=== PATIENT | male | born 1960 | race African-American/Black ===

== ENCOUNTER 2016-09-15 22:54 | Inpatient (IN) | payer MEDICAID ==
[~2016-09-15] VITALS: Ht 185.4 cm; Wt 109.9 kg
[~2016-09-15 22:54] MED LIST: AC325T PO; AMLO5TAB2 PO; Amlodipine Besylate PO; BUSP15TA60 PO; BUSPAR; CELE100C; FURO40TA PO; HYDR25CA5 PO; LASIX; LISINOPRIL; LORA10TA7 PO; LORATADINE; LOSA100T7 PO; LOSA50TA6 PO; METO50TA2 PO; METO50TA7 PO; OMEP40CA36 PO; OMEPRAZOLE; POTA10CA43 PO; POTASSIUM; Propranolol Hcl PO; SILD50TA PO; SULF1TAB35 PO; TMSL.4C PO; VIAGRA
[2016-09-15] MEDS ORDERED: NS IV 1000 ML 1,000 ML IV ONE ×2 (23:13→23:36)
--- NOTE | 2016-09-15 23:13 | ED General ---
General Chief Complaint: General Problems/Pain Stated Complaint: WEAKNESS,CONFUSION Source of Information: Patient Exam Limitations: Other (clinical condition) History of Present Illness Time Seen by Provider: 23:08 Initial Comments Patient presents to ER with a chief complaint of the past 5-7 days progressively worsening weakness tiredness inability to get around his house and a progressive worsening dry cough. He also was noted last few days she's had croupy eye mattering. He is also having progressively worsening low back pain over the last 3-4 days. States he has no rash however he is known to have hepatitis C and drinks at least one to 2 beers a night. He knows he is on thyroid medicines as well as blood pressure medicines but he does not have a list of his meds with him tonight. Allergies and Home Medications Allergies Coded Allergies: No Known Drug Allergies (Unverified , 03/18/13) Home Medications Buspirone Hcl 15 Mg Tablet, 15 MG PO BID, (Reported) Celecoxib 100 Mg Capsule, #30 (Reported) Loratadine 10 Mg Tablet, 10 MG PO DAILY, (Reported) Losartan Potassium 100 Mg Tablet, 100 MG PO DAILY, #30 Ref 1 Prescribed by: ZAHRAA MOYA on 09/17/14 1518 Omeprazole 40 Mg Capsule.dr, 40 MG PO DAILY, (Reported) Sildenafil Citrate 50 Mg Tablet, #10 (Reported) [Amlodipine Besylate] 10 MG TABLET, 10 MG PO DAILY, #30 Ref 1 Prescribed by: ZAHRAA MOYA on 09/17/14 1518 [Propranolol Hcl] 20 MG TABLET, 80 MG PO TID for 30 Days, Ref 1 Prescribed by: ZAHRAA MOYA on 09/17/14 1518 Constitutional: see HPI (a complete and thorough review of systems difficult to obtain secondary to patient being a difficult historian as well as his clinical condition), chills, diaphoresis, dizziness, malaise, weakness EENTM: No ear pain, No epistaxis, No eye pain, No nose congestion, No nose pain Respiratory: cough (dry), No hemoptysis, No phlegm, short of breath, No wheezing Cardiovascular: No chest pain, No edema, No palpitations, No syncope Gastrointestinal: No abdominal pain, No constipation, No diarrhea, No nausea, No vomiting Genitourinary: No discharge, dysuria, No frequency, No hematuria, hesitancy, No incontinence Musculoskeletal: back pain (past week), No joint pain Skin: change in color (yellowing around the eyes last day and a half), No pruritus, No rash Psychiatric/Neurological: Denies Headache, Denies Numbness Past [id number] Hx Patient Social History Alcohol Use: Regular Use Recreational Drug Use: No Smoking Status: Current Everyday Smoker Type Used: Cigarettes Recent Hopitalizations: No Immunizations Up To Date Tetanus Booster (TDap): Unknown PED Vaccines UTD: No Seasonal Allergies Seasonal Allergies: Yes Surgeries HX Surgeries: No Respiratory Hx Respiratory Disorders: No Cardiovascular Hx Cardiac Disorders: No Cardiac Disorders: Chronic Edema/Swelling, Hypertension Neurological Hx Neurological Disorders: No Reproductive System Hx Reproductive Disorders: No Genitourinary Hx Genitourinary Disorders: No Gastrointestinal Hx Gastrointestinal Disorders: Yes (HEPATITIS C--NO TREATMENT) Gastrointestinal Disorders: Gastroesophageal Reflux, Liver Disease/Jaundice, Hepatitis, Cirrhosis, Irritable Bowel Musculoskeletal Hx Musculoskeletal Disorders: No Endocrine Hx Endocrine Disorders: No HEENT HX ENT Disorders: No Cancer Hx Cancer: No Psychosocial Hx Psychiatric Problems: Yes Behavioral Health Disorders: Anxiety, Depression Integumentary HX Skin/Integumentary Disorder: No Blood Transfusions Hx Blood Disorders: Yes (ANEMIA AND THROMBOCYTOPENIA-FELT TO BE RELATED TO ALCOHOL ABUSE) Adverse Reaction to a Blood Tr: No Family Medical History Family Medial History: Family history: Cardiovascular disease 03 FATHER Family history: Hypertension 03 MOTHER Physical Exam-Suspected Sepsis Physical Exam Vital Signs Vital Sign - Last 12Hours 09/15/16 23:08 Temp 97.3 Pulse 62 Resp 16 B/P (MAP) 144/93 Pulse Ox 99 O2 Delivery Room Air Capillary Refill : General Appearance: Chronically ill, Moderate Distress Eyes: Bilateral Eye EOMI, Bilateral Eye Other (mild clear mattering bilateral eyes), Bilateral Eye PERRL, Bilateral Eye Scleral Icterus HEENT: TMs Normal, Pharynx Normal Neck: Normal Inspection, Non Tender, Supple Respiratory: Chest Non Tender, Lungs Clear, Normal Breath Sounds, Other (dry cough) Cardiovascular: Regular Rate, Rhythm, No No Edema, No JVD, Normal Peripheral Pulses Gastrointestinal: Normal Bowel Sounds, Non Tender, Soft Back: Normal Inspection, No CVA Tenderness, No Vertebral Tenderness Extremity: Normal Capillary Refill, Non Tender, No Calf Tenderness Neurologic/Psychiatric: Alert, Oriented x3, No Motor/Sensory Deficits, audit partner II- XII Norm as Tested, Other (flat affect) Skin: jaundice, No rash, No ulcerations Focused Exam Lactic Acid Level Laboratory Tests Test 09/15/16 23:00 09/16/16 00:42 Lactic Acid Level 3.85 MMOL/L (0.50-2.00) *H 3.30 MMOL/L (0.50-2.00) *H Progress/Results/Core Measures Suspected Sepsis SIRS Temperature: Pulse: Respiratory Rate: Laboratory Tests 09/15/16 23:00: White Blood Count 7.9 Blood Pressure / Mean: Laboratory Tests 09/15/16 23:00: Creatinine 0.80, INR Comment 1.8H, Platelet Count 62L, Total Bilirubin 15.2H 09/16/16 00:10: Creatinine 0.81 09/16/16 01:34: Results/Orders Lab Results Laboratory Tests Test 09/15/16 23:00 09/15/16 23:36 09/16/16 00:10 09/16/16 00:42 Range/Units White Blood Count 7.9 4.3-11.0 10^3/uL Red Blood Count 2.91 L 4.35-5.85 10^6/uL Hemoglobin 10.3 L 13.3-17.7 G/DL Hematocrit 27 L 40-54 % Mean Corpuscular Volume 92 80-99 FL Mean Corpuscular Hemoglobin 35 H 25-34 PG Mean Corpuscular Hemoglobin Concent 39 H 32-36 G/DL Red Cell Distribution Width 16.8 H 10.0-14.5 % Platelet Count 62 L 130-400 10^3/uL Mean Platelet Volume 11.5 H 7.4-10.4 FL Neutrophils (%) (Auto) 64 42-75 % Lymphocytes (%) (Auto) 13 12-44 % Monocytes (%) (Auto) 21 H 0-12 % Eosinophils (%) (Auto) 1 0-10 % Basophils (%) (Auto) 1 0-10 % Neutrophils # (Auto) 5.1 1.8-7.8 X 10^3 Lymphocytes # (Auto) 1.0 1.0-4.0 X 10^3 Monocytes # (Auto) 1.6 H 0.0-1.0 X 10^3 Eosinophils # (Auto) 0.1 0.0-0.3 10^3/uL Basophils # (Auto) 0.1 0.0-0.1 10^3/uL Neutrophils % (Manual) 58 % Lymphocytes % (Manual) 16 % Monocytes % (Manual) 19 % Eosinophils % (Manual) 1 % Basophils % (Manual) 1 % Band Neutrophils 5 % Hypochromasia SLIGHT Poikilocytosis SLIGHT Anisocytosis SLIGHT Target Cells MODERATE Prothrombin Time 21.0 H 12.2-14.7 SEC INR Comment 1.8 H 0.8-1.4 Activated Partial Thromboplast Time 44 H 24-35 SEC Urine Color GUDELIA H Urine Clarity CLEAR Urine pH 6.5 5-9 Urine Specific [place] 1.010 L 1.016-1.022 Urine Protein 1+ H NEGATIVE Urine Glucose (UA) NEGATIVE NEGATIVE Urine Ketones 2+ H NEGATIVE Urine Nitrite POSITIVE H NEGATIVE Urine Bilirubin 3+ H NEGATIVE Urine Urobilinogen 12 H NORMAL MG/DL Urine Leukocyte Esterase 2+ H NEGATIVE Urine RBC (Auto) 2+ H NEGATIVE Urine RBC 0-2 /HPF Urine WBC 10-25 H /HPF Urine Squamous Epithelial Cells 2-5 /HPF Urine Crystals NONE /LPF Urine Bacteria TRACE /HPF Urine Casts NONE /LPF Urine Mucus NEGATIVE /LPF Urine Culture Indicated YES Sodium Level 108 *L 110 *L 135-145 MMOL/L Potassium Level 4.8 4.7 3.6-5.0 MMOL/L Chloride Level 81 L 84 L 98-107 MMOL/L Carbon Dioxide Level 14 L 14 L 21-32 MMOL/L Anion Gap 13 12 5-14 MMOL/L Blood Urea Nitrogen 7 7 7-18 MG/DL Creatinine 0.80 0.81 0.60-1.30 MG/DL Estimat Glomerular Filtration Rate > 60 > 60 BUN/Creatinine Ratio 9 9 Glucose Level 95 89 70-105 MG/DL Lactic Acid Level 3.85 *H 3.30 *H 0.50-2.00 MMOL/L Calcium Level 8.1 L 7.7 L 8.5-10.1 MG/DL Phosphorus Level 2.2 L 2.3-4.7 MG/DL Magnesium Level 1.2 L 1.8-2.4 MG/DL Total Bilirubin 15.2 H 0.1-1.0 MG/DL Aspartate Amino Transf (AST/SGOT) 109 H 5-34 U/L Alanine Aminotransferase (ALT/SGPT) 42 0-55 U/L Alkaline Phosphatase 146 H 40-136 U/L Troponin I < 0.30 <0.30 NG/ML C-Reactive Protein High Sensitivity 1.38 H 0.00-0.50 MG/DL Total Protein 7.9 6.4-8.2 GM/DL Albumin 2.4 L 3.2-4.5 GM/DL Urine Opiates Screen POSITIVE H NEGATIVE Urine Oxycodone Screen NEGATIVE NEGATIVE Urine Methadone Screen NEGATIVE NEGATIVE Urine Propoxyphene Screen NEGATIVE NEGATIVE Urine Barbiturates Screen NEGATIVE NEGATIVE Ur Tricyclic Antidepressants Screen NEGATIVE NEGATIVE Urine Phencyclidine Screen NEGATIVE NEGATIVE Urine Amphetamines Screen NEGATIVE NEGATIVE Urine Methamphetamines Screen NEGATIVE NEGATIVE Urine Benzodiazepines Screen NEGATIVE NEGATIVE Urine Cocaine Screen NEGATIVE NEGATIVE Urine Cannabinoids Screen NEGATIVE NEGATIVE Serum Alcohol 114 H <10 MG/DL Ammonia 55 H 11-32 UMOL/L Test 09/16/16 01:34 Range/Units My Orders Orders - TATIANA JACOBSON Alcohol (09/15/16 23:13) Cbc With Automated Diff (09/15/16 23:13) Comprehensive Metabolic Panel (09/15/16 23:13) Hs C Reactive Protein (09/15/16 23:13) Drug Screen Stat (Urine) (09/15/16 23:13) Lactic Acid Analyzer (09/15/16 23:13) Magnesium (09/15/16 23:13) Troponin I (09/15/16 23:13) Ua Culture If Indicated (09/15/16 23:13) Phosphorus (09/15/16 23:13) Chest 1 View, Ap/Pa Only (09/15/16 23:13) Saline Lock/Iv-Start (09/15/16 23:13) Ns Iv 1000 Ml (Sodium Chloride 0.9%) (09/15/16 23:13) Blood Culture (09/15/16 23:13) Sputum Culture (09/15/16 23:13) Protime With Inr (09/15/16 23:13) Partial Thromboplastin Time (09/15/16 23:13) O2 (09/15/16 23:13) Ondansetron Injection (Zofran Injectio (09/15/16 23:15) Saline Lock/Iv-Start (09/15/16 23:13) Vital Signs Adult Sepsis Patie Q1HR (09/15/16 23:13) Remove Rings In Anticipation O (09/15/16 23:13) Ammonia (09/15/16 23:21) Manual Differential (09/15/16 23:00) Urine Culture (09/15/16 23:00) Saline Lock/Iv-Start (09/15/16 23:36) Ns Iv 1000 Ml (Sodium Chloride 0.9%) (09/15/16 23:36) Ns Iv 1000 Ml (Sodium Chloride 0.9%) (09/15/16 23:45) Cefepime Injection (Maxipime Injection) (09/15/16 23:36) Piperacillin Sodium/Tazobactam (Zosyn Vi (09/15/16 23:45) Ns (Ivpb) (Sodium Chloride 0.9% Ivpb Bag (09/15/16 23:37) Magnesium 1 Gm/100 Ml Ivpb (Magnesium Patino (09/16/16 00:00) Potassium Phosphate Inj (Potassium Phosp (09/16/16 00:00) Basic Metabolic Panel (09/16/16 00:04) Hiv 1&2 Antibody (09/16/16 00:04) Hepatitis Panel Acute (09/16/16 00:04) Osmolality Urine (09/16/16 00:07) Medications Given in ED Current Medications Medications Dose Ordered Sig/Otilia Route Start Time Stop Time Status Last Admin Dose Admin Magnesium Sulfate/ Dextrose 100 ml @ 100 mls/hr ONCE ONCE IV 09/16/16 00:00 09/16/16 00:59 DC 09/16/16 00:12 100 MLS/HR Ondansetron HCl 4 mg ONCE PRN IVP 09/15/16 23:15 09/15/16 23:24 DC 09/15/16 23:23 4 MG Piperacillin Sod/ Tazobactam Sod 4.5 gm ONCE ONCE IV 09/15/16 23:45 09/15/16 23:46 DC 09/15/16 23:49 4.5 GM Potassium Phosphate 15 mm/ Sodium Chloride 255 ml @ 102 mls/hr 0000 ONCE IV 09/16/16 00:00 09/16/16 02:29 09/16/16 01:50 102 MLS/HR Sodium Chloride 100 ml @ ud STK-MED ONCE .ROUTE 09/15/16 23:37 09/15/16 23:43 DC 09/15/16 23:49 100 MLS/HR Sodium Chloride 1,000 ml @ 0 mls/hr Q0M ONCE IV 09/15/16 23:13 09/15/16 23:16 DC 09/15/16 23:23 0 MLS/HR Sodium Chloride 1,000 ml @ 0 mls/hr Q0M ONCE IV 09/15/16 23:36 09/15/16 23:40 DC 09/15/16 23:49 0 MLS/HR Vital Signs/I&O Vital Sign - Last 12Hours 09/15/16 09/15/16 09/16/16 09/16/16 23:08 23:18 00:00 01:03 Temp 97.3 97.9 98.0 Pulse 62 63 67 Resp 16 13 15 B/P (MAP) 144/93 112/77 Pulse Ox 99 99 97 98 O2 Delivery Room Air Room Air Room Air Room Air Intake and Output 09/16/16 00:00 Intake Total 1100 ml Balance 1100 ml Capillary Refill : Progress Note #1: Time: 00:03 Progress Note Patient's lactate was noted to be over 3. We initiated massive fluid resuscitation at 30 mils per kilogram. He was then noted that his sodium was 108 on review of his labs and he is very received 1 L normal saline as well as starting on the next 2 L. We'll allow him to go ahead and get his IV antibiotics and replace magnesium and phosphorus but have held the second and third liter of normal saline. We will reobtain a BMP at this time. Patient states he feels a little better now. He has an apparent urinary tract infection as well as a possible opacity in his right lower lobe that could be consistent with a infiltrate. He will need further treatment inpatient in the unit. Progress Note #2: Time: 00:58 Progress Note Patient's repeat sodium came back 110 up from 108. This is acceptable this time. Patient is looking and feeling better he is better able to answer questions. I've discussed the case with him as well as the accepting physician and we're working on moving him to the ICU safely. He still denying nausea or pain. Diagnostic Imaging Diagonstic Imaging: Xray Plain Films/CT/US/NM/MRI: chest Comments Right lower lobe nodular opacity potentially a pneumonia or other focal process. Reviewed: Reviewed by Me Departure Communication Time/Spoke to Admitting Phy: 00:[address] Nam discussed the patient's septic shock with elevated liver enzymes and bilirubin and his synthetic dysfunction as well as his hyponatremia 108 and history of hep C as well as his myriad elect like disorders phosphorus, magnesium, calcium, chloride etc. I have held his saline and she agrees with that she also agrees with getting him to the unit. We're awaiting the BMP. At this time patient's blood pressure is been stable. She asked if his belly was tender or any other focal sources and that is not at this time. We also discussed his overt urinary tract infection on the UA and choice of vancomycin and Zosyn and she agrees with this at this time. Also discussed the round opacity seen on the right lower lobe on the chest x-ray. Impression Impression: Primary Impression: Severe sepsis Additional Impressions: UTI (urinary tract infection) Qualified Codes: N30.01 - Acute cystitis with hematuria Hyperammonemia Hyponatremia Hypomagnesemia Hypophosphatemia Hypocalcemia Cough Weakness Low back pain Qualified Codes: M54.5 - Low back pain Hepatic encephalopathy Disposition: ADMITTED INPATIENT (ICU) Condition: Improved Decision to Admit Reason: Admit from ER (General) Decision to Admit/Date: Sep 16, 2016 Time/Decision to Admit Time: 00:21 Departure-Patient Inst. Referrals: KIT BOSTON (PCP/Family) Primary Care Physician Copy Copies To 1: JUAN DAVID SAMANIEGO TITUS J Sep 15, 2016 23:13
[2016-09-15] MEDS ORDERED: ONDANSETRON 4 MG/2 ML (SDV) Z0FRAN IVP PRN (23:15)
[2016-09-15 23:22] LABS: BASOPHILS # (AUTO) 0.1 10^3/uL (0.0-0.1); BASOPHILS % (AUTO) 1 % (0-10); EOSINOPHILS # (AUTO) 0.1 10^3/uL (0.0-0.3); EOSINOPHILS % (AUTO) 1 % (0-10); LYMPHOCYTES % (AUTO) 13 % (12-44); MEAN CORPUSCULAR HEMOGLOBIN 35 PG (25-34); MEAN CORPUSCULAR HGB CONC 39 G/DL (32-36); MEAN CORPUSCULAR VOLUME 92 FL (80-99); MEAN PLATELET VOLUME 11.5 FL (7.4-10.4); MONOCYTES # (AUTO) 1.6 X 10^3 (0.0-1.0); MONOCYTES % (AUTO) 21 % (0-12); NEUTROPHILS # (AUTO) 5.1 X 10^3 (1.8-7.8); NEUTROPHILS % (AUTO) 64 % (42-75); PLATELET COUNT 62 10^3/uL (130-400); RED BLOOD COUNT 2.91 10^6/uL (4.35-5.85); RED CELL DISTRIBUTION WIDTH 16.8 % (10.0-14.5); WHITE BLOOD COUNT 7.9 10^3/uL (4.3-11.0)
[2016-09-15 23:24] LABS: KETONES,URINE 2+ (NEGATIVE); LEUKOCYTE ESTERASE ,URINE 2+ (NEGATIVE); NITRITE,URINE POSITIVE (NEGATIVE); PH,URINE 6.5 (5-9); PROTEIN,URINE 1+ (NEGATIVE); UROBILINOGEN,URINE 12 MG/DL (NORMAL)
[2016-09-15 23:27] LABS: INR 1.8 (0.8-1.4)
[2016-09-15 23:32] LABS: BILIRUBIN,URINE 3+ (NEGATIVE)
[2016-09-15] MEDS ORDERED: CEFEPIME INJECTION 2,000 MG in NS (IVPB) 50 ML IV STA (23:36)
[2016-09-15] MEDS ORDERED: NS (IVPB) 100 ML ONE (23:37)
[2016-09-15 23:38] LABS: ALANINE AMINOTRANSFERASE 42 U/L (0-55); ALBUMIN 2.4 GM/DL (3.2-4.5); ALCOHOL 114 MG/DL (<10); ANION GAP 13 MMOL/L (5-14); ASPARTATE AMINO TRANSFERASE 109 U/L (5-34); BILIRUBIN,TOTAL 15.2 MG/DL (0.1-1.0); BLOOD UREA NITROGEN 7 MG/DL (7-18); BUN/CREATININE RATIO 9; CALCIUM 8.1 MG/DL (8.5-10.1); CARBON DIOXIDE 14 MMOL/L (21-32); CHLORIDE 81 MMOL/L (98-107); GFR ESTIMATED > 60; GLUCOSE 95 MG/DL (70-105); MAGNESIUM 1.2 MG/DL (1.8-2.4); PHOSPHORUS 2.2 MG/DL (2.3-4.7); POTASSIUM 4.8 MMOL/L (3.6-5.0); TOTAL PROTEIN 7.9 GM/DL (6.4-8.2); hs C REACTIVE PROTEIN 1.38 MG/DL (0.00-0.50)
[2016-09-15 23:42] LABS: SODIUM 108 MMOL/L (135-145)
[2016-09-15 23:45] LABS: TROPONIN I < 0.30 NG/ML (<0.30)
[2016-09-15] MEDS ORDERED: PIPERACILLIN/TAZO 4.5 GM VIAL (ZOSYN) IV ONE (23:45)
[2016-09-15] MEDS ORDERED: NS IV 1000 ML 1,000 ML IV SCH (23:45)
[2016-09-15 23:57] LABS: ANISOCYTOSIS SLIGHT; BAND NEUTROPHILS 5 %; BASOPHILS % (MANUAL) 1 %; EOSINOPHILS % (MANUAL) 1 %; HYPOCHROMASIA SLIGHT; LYMPHOCYTES % (MANUAL) 16 %; NEUTROPHILS % (MANUAL) 58 %; POIKILOCYTOSIS SLIGHT; TARGET CELLS MODERATE
[2016-09-16] VITALS (27 sets, daily range): BP systolic 124–175; BP diastolic 76–101
[2016-09-16] MEDS ORDERED: POTASSIUM PHOSPHATE INJ 15 MM in NS (IVPB) 250 ML IV ONE ×2
[2016-09-16] MEDS ORDERED: MAGNESIUM 1 GM/100 ML IVPB 100 ML IV ONE
[2016-09-16 00:38] LABS: ANION GAP 12 MMOL/L (5-14); BLOOD UREA NITROGEN 7 MG/DL (7-18); BUN/CREATININE RATIO 9; CALCIUM 7.7 MG/DL (8.5-10.1); CARBON DIOXIDE 14 MMOL/L (21-32); CHLORIDE 84 MMOL/L (98-107); CREATININE SERUM 0.81 MG/DL (0.60-1.30); GFR ESTIMATED > 60; GLUCOSE 89 MG/DL (70-105); POTASSIUM 4.7 MMOL/L (3.6-5.0)
[2016-09-16 00:50] LABS: SODIUM 110 MMOL/L (135-145)
[2016-09-16] MEDS ORDERED: LIDOCAINE UROJET 2% GEL 10 ML PKG ONE (01:16)
[2016-09-16 01:59] LABS: ANION GAP 12 MMOL/L (5-14); BLOOD UREA NITROGEN 7 MG/DL (7-18); BUN/CREATININE RATIO 9; CALCIUM 7.6 MG/DL (8.5-10.1); CARBON DIOXIDE 14 MMOL/L (21-32); CHLORIDE 81 MMOL/L (98-107); CREATININE SERUM 0.76 MG/DL (0.60-1.30); GFR ESTIMATED > 60; GLUCOSE 201 MG/DL (70-105); POTASSIUM 4.7 MMOL/L (3.6-5.0)
[2016-09-16 02:02] LABS: SODIUM 107 MMOL/L (135-145)
[2016-09-16] MEDS ORDERED: VANCOMYCIN 1500 MG/NS 500 ML IVPB IV ONE ×2 (02:15)
[2016-09-16] MEDS ORDERED: NS IV 500 ML 500 ML ONE (02:47)
[2016-09-16] MEDS ORDERED: VANCOMYCIN 750 MG/VIAL IV ONE (02:47)
[2016-09-16 03:13] LABS: BASOPHILS # (AUTO) 0.1 10^3/uL (0.0-0.1); BASOPHILS % (AUTO) 1 % (0-10); EOSINOPHILS # (AUTO) 0.1 10^3/uL (0.0-0.3); EOSINOPHILS % (AUTO) 1 % (0-10); LYMPHOCYTES % (AUTO) 13 % (12-44); MEAN CORPUSCULAR HEMOGLOBIN 35 PG (25-34); MEAN CORPUSCULAR HGB CONC 39 G/DL (32-36); MEAN CORPUSCULAR VOLUME 91 FL (80-99); MONOCYTES # (AUTO) 1.4 X 10^3 (0.0-1.0); MONOCYTES % (AUTO) 19 % (0-12); NEUTROPHILS % (AUTO) 67 % (42-75); PLATELET COUNT 176 10^3/uL (130-400); RED BLOOD COUNT 2.66 10^6/uL (4.35-5.85); RED CELL DISTRIBUTION WIDTH 17.2 % (10.0-14.5); WHITE BLOOD COUNT 7.5 10^3/uL (4.3-11.0)
[2016-09-16] MEDS ORDERED: PANTOPRAZOLE 40 MG/10 ML (PROTONIX) VIAL ONE (03:36)
[2016-09-16] MEDS: PANTOPRAZOLE 40 MG/10 ML (PROTONIX) VIAL IV SCH ×3 (03:56→21:55)
[2016-09-16] MEDS: NS IV 1000 ML 1,000 ML IV SCH (03:58)
[2016-09-16 04:39] LABS: ALANINE AMINOTRANSFERASE 38 U/L (0-55); ALBUMIN 2.2 GM/DL (3.2-4.5); ANION GAP 11 MMOL/L (5-14); ASPARTATE AMINO TRANSFERASE 98 U/L (5-34); BILIRUBIN,TOTAL 13.1 MG/DL (0.1-1.0); BLOOD UREA NITROGEN 7 MG/DL (7-18); BUN/CREATININE RATIO 9; CALCIUM 7.5 MG/DL (8.5-10.1); CARBON DIOXIDE 13 MMOL/L (21-32); CHLORIDE 85 MMOL/L (98-107); CREATININE SERUM 0.75 MG/DL (0.60-1.30); GFR ESTIMATED > 60; GLUCOSE 92 MG/DL (70-105); MAGNESIUM 1.2 MG/DL (1.8-2.4); PHOSPHORUS 2.7 MG/DL (2.3-4.7); POTASSIUM 4.7 MMOL/L (3.6-5.0); TOTAL PROTEIN 6.9 GM/DL (6.4-8.2)
[2016-09-16 04:44] LABS: SODIUM 109 MMOL/L (135-145)
[2016-09-16] MEDS: POTASSIUM CL 10MEQ/50ML IVPB 50 ML IV SCH (04:46)
[2016-09-16] MEDS: KCL 20 MEQ TAB (K-DUR) PO SCH (04:46)
[2016-09-16] MEDS: MAGNESIUM 1 GM/100 ML IVPB 100 ML IV SCH ×5 (04:48→08:27)
[2016-09-16] MEDS: PIPERACILLIN/TAZOBACTAM 4.5 GM/NS100 ML IVPB IV SCH ×6 (05:51→21:56)
--- NOTE | 2016-09-16 07:13 | Diagnostic Imaging Report ---
INDICATION: Weakness, slow speech. Study compared 10/29/2014. FINDINGS: The heart size upper limits but no gross overdistention of the vascularity. A dense nodularity projects over the right chest inferolaterally believed to be callus from a right rib deformity. No acute infiltrate. No failure, effusion or pneumothorax. IMPRESSION: No acute appearing abnormality Dictated by: Dictated on workstation # [id number]
[2016-09-16 09:41] LABS: ANION GAP 8 MMOL/L (5-14); BLOOD UREA NITROGEN 7 MG/DL (7-18); BUN/CREATININE RATIO 9; CALCIUM 7.4 MG/DL (8.5-10.1); CARBON DIOXIDE 16 MMOL/L (21-32); CHLORIDE 87 MMOL/L (98-107); GFR ESTIMATED > 60; GLUCOSE 100 MG/DL (70-105); POTASSIUM 4.3 MMOL/L (3.6-5.0)
[2016-09-16 09:45] LABS: SODIUM 111 MMOL/L (135-145)
[2016-09-16] MEDS ORDERED: LEVO25TA5 PO (09:50)
[2016-09-16] MEDS ORDERED: TORS10TA5 PO (09:50)
[2016-09-16] MEDS ORDERED: LOSA100T28 PO (09:50)
[2016-09-16] MEDS ORDERED: MELO7.5T46 PO (09:50)
[2016-09-16] MEDS ORDERED: POTA10TA10 PO (09:50)
[2016-09-16] MEDS ORDERED: PROP120C3 PO (09:50)
[2016-09-16] MEDS: VANCOMYCIN 1,750 MG/NS 500 ML IVPB IV SCH ×4 (09:58→21:55)
[2016-09-16] MEDS: LORazepam INJ 2 MG/ML (ATIVAN) VIAL IVP PRN ×2 (10:46→22:30)
--- NOTE | 2016-09-16 11:48 | Diagnostic Imaging Report ---
EXAMINATION: Ultrasound of the liver. INDICATION: Cirrhosis. FINDINGS: The pancreas is obscured by bowel gas. The liver has coarse echotexture and is hyperechoic and attenuates the ultrasound beam. This may relate to fatty infiltration, hepatitis or cirrhosis. Nonspecific mild lobulations are seen in the liver contour. No focal mass. The portal vein demonstrate hepatofugal flow compatible with portal hypertension. The gallbladder demonstrate sludge and mild wall thickening with no definite stone. Sonographic Felix sign is reportedly negative. The CBD is obscured. No significant ascites is seen. Very minimal amount of free fluid in subhepatic location is seen. The right kidney is 10.8 CM in length with no hydronephrosis or focal lesion. IMPRESSION: Coarse liver echotexture with no focal mass is seen likely related to chronic hepatitis or cirrhosis. There is reversal of the normal flow in the portal vein compatible with portal hypertension. Dictated by: Dictated on workstation # [id number]
--- NOTE | 2016-09-16 18:31 | History & Physicial ([facility]) ---
HPI History of Present Illness: 56 yo M with known end stage liver disease that presented to ER with increasing confusion and weakness that had been progressing for the last 2 weeks. Patient has known chronic hep C and states that he drinks 3 beers per day. Denies any EtOH withdraw seizures or DTs in the past. Denies any pain at this time. States that he has had decreased appetite the last few weeks. States that he can in because he felt so weak that he might fall down and was concerned that he had a suffered a stroke. Denies weakness that is worse on one side or the other. No troubles swallowing. Source: patient, RN/MD, old records Exam Limitations: no limitations Date seen by provider: Sep 16, 2016 Time Seen by Provider: 09:15 Attending Physician Beatriz Nam MD [place] [facility] [place] Consult Date of Admission Sep 16, 2016 at 00:25 Home Medications Home Medications Reviewed patient Home Medication Reconciliation Form Allergies Coded Allergies: No Known Drug Allergies (Unverified , 03/18/13) [id number] Hx Patient Social History Alcohol Use: Regular Use Recreational Drug Use: No Smoking Status: Current Everyday Smoker Type Used: Cigarettes (1/2 ppd) Recent Foreign Travel: No Contact w/other who traveled: No Recent Hopitalizations: No Recent Infectious Disease Expo: No Physical Abuse Screen: No Sexual Abuse: No Immunizations Up To Date Tetanus Booster (TDap): Unknown Past Medical History Past medical history 1. Hypertension 2. Alcoholism 3. Chronic hepatitis C: Untreated 4. Illicit drug use 5. Cirrhois with portal HTN Denied any past surgical history Family Medical History Family History: Family history: Cardiovascular disease 03 FATHER Family history: Hypertension 03 MOTHER Review of Systems ([facility]C) Constitutional: No chills, No fever, malaise, weakness EENTM: no symptoms reported, No blurred vision, No hoarseness, No throat pain Respiratory: no symptoms reported, No cough, No dyspnea on exertion, No hemoptysis, No orthopnea, No short of breath Cardiovascular: no symptoms reported, No chest pain, No edema, No palpitations Gastrointestinal: No abdominal pain, No constipation, No diarrhea, No hematemesis, jaundice (worsening), loss of appetite, No melena, No nausea, No vomiting Genitourinary: no symptoms reported, No dysuria, No frequency, No hematuria Musculoskeletal: no symptoms reported, No back pain, No joint pain, No muscle pain Skin: change in color, No pruritus, No rash Psychiatric/Neurological: Anxiety, Other (States that he has alot of stress at home and that is one major reason he drinks) Reviewed Test Results Reviewed Test Results Lab Laboratory Tests Test 09/15/16 23:00 09/15/16 23:36 09/16/16 00:10 09/16/16 00:42 Range/Units White Blood Count 7.9 4.3-11.0 10^3/uL Red Blood Count 2.91 L 4.35-5.85 10^6/uL Hemoglobin 10.3 L 13.3-17.7 G/DL Hematocrit 27 L 40-54 % Mean Corpuscular Volume 92 80-99 FL Mean Corpuscular Hemoglobin 35 H 25-34 PG Mean Corpuscular Hemoglobin Concent 39 H 32-36 G/DL Red Cell Distribution Width 16.8 H 10.0-14.5 % Platelet Count 62 L 130-400 10^3/uL Mean Platelet Volume 11.5 H 7.4-10.4 FL Neutrophils (%) (Auto) 64 42-75 % Lymphocytes (%) (Auto) 13 12-44 % Monocytes (%) (Auto) 21 H 0-12 % Eosinophils (%) (Auto) 1 0-10 % Basophils (%) (Auto) 1 0-10 % Neutrophils # (Auto) 5.1 1.8-7.8 X 10^3 Lymphocytes # (Auto) 1.0 1.0-4.0 X 10^3 Monocytes # (Auto) 1.6 H 0.0-1.0 X 10^3 Eosinophils # (Auto) 0.1 0.0-0.3 10^3/uL Basophils # (Auto) 0.1 0.0-0.1 10^3/uL Neutrophils % (Manual) 58 % Lymphocytes % (Manual) 16 % Monocytes % (Manual) 19 % Eosinophils % (Manual) 1 % Basophils % (Manual) 1 % Band Neutrophils 5 % Hypochromasia SLIGHT Poikilocytosis SLIGHT Anisocytosis SLIGHT Target Cells MODERATE Prothrombin Time 21.0 H 12.2-14.7 SEC INR Comment 1.8 H 0.8-1.4 Activated Partial Thromboplast Time 44 H 24-35 SEC Urine Color GUDELIA H Urine Clarity CLEAR Urine pH 6.5 5-9 Urine Specific Donalds 1.010 L 1.016-1.022 Urine Protein 1+ H NEGATIVE Urine Glucose (UA) NEGATIVE NEGATIVE Urine Ketones 2+ H NEGATIVE Urine Nitrite POSITIVE H NEGATIVE Urine Bilirubin 3+ H NEGATIVE Urine Urobilinogen 12 H NORMAL MG/DL Urine Leukocyte Esterase 2+ H NEGATIVE Urine RBC (Auto) 2+ H NEGATIVE Urine RBC 0-2 /HPF Urine WBC 10-25 H /HPF Urine Squamous Epithelial Cells 2-5 /HPF Urine Crystals NONE /LPF Urine Bacteria TRACE /HPF Urine Casts NONE /LPF Urine Mucus NEGATIVE /LPF Urine Culture Indicated YES Sodium Level 108 *L 110 *L 135-145 MMOL/L Potassium Level 4.8 4.7 3.6-5.0 MMOL/L Chloride Level 81 L 84 L 98-107 MMOL/L Carbon Dioxide Level 14 L 14 L 21-32 MMOL/L Anion Gap 13 12 5-14 MMOL/L Blood Urea Nitrogen 7 7 7-18 MG/DL Creatinine 0.80 0.81 0.60-1.30 MG/DL Estimat Glomerular Filtration Rate > 60 > 60 BUN/Creatinine Ratio 9 9 Glucose Level 95 89 70-105 MG/DL Lactic Acid Level 3.85 *H 3.30 *H 0.50-2.00 MMOL/L Calcium Level 8.1 L 7.7 L 8.5-10.1 MG/DL Phosphorus Level 2.2 L 2.3-4.7 MG/DL Magnesium Level 1.2 L 1.8-2.4 MG/DL Total Bilirubin 15.2 H 0.1-1.0 MG/DL Aspartate Amino Transf (AST/SGOT) 109 H 5-34 U/L Alanine Aminotransferase (ALT/SGPT) 42 0-55 U/L Alkaline Phosphatase 146 H 40-136 U/L Troponin I < 0.30 <0.30 NG/ML C-Reactive Protein High Sensitivity 1.38 H 0.00-0.50 MG/DL Total Protein 7.9 6.4-8.2 GM/DL Albumin 2.4 L 3.2-4.5 GM/DL Urine Opiates Screen POSITIVE H NEGATIVE Urine Oxycodone Screen NEGATIVE NEGATIVE Urine Methadone Screen NEGATIVE NEGATIVE Urine Propoxyphene Screen NEGATIVE NEGATIVE Urine Barbiturates Screen NEGATIVE NEGATIVE Ur Tricyclic Antidepressants Screen NEGATIVE NEGATIVE Urine Phencyclidine Screen NEGATIVE NEGATIVE Urine Amphetamines Screen NEGATIVE NEGATIVE Urine Methamphetamines Screen NEGATIVE NEGATIVE Urine Benzodiazepines Screen NEGATIVE NEGATIVE Urine Cocaine Screen NEGATIVE NEGATIVE Urine Cannabinoids Screen NEGATIVE NEGATIVE Serum Alcohol 114 H <10 MG/DL Ammonia 55 H 11-32 UMOL/L Test 09/16/16 01:34 09/16/16 03:00 09/16/16 04:00 09/16/16 09:15 Range/Units Sodium Level 107 *L 109 *L 111 *L 135-145 MMOL/L Potassium Level 4.7 4.7 4.3 3.6-5.0 MMOL/L Chloride Level 81 L 85 L 87 L 98-107 MMOL/L Carbon Dioxide Level 14 L 13 L 16 L 21-32 MMOL/L Anion Gap 12 11 8 5-14 MMOL/L Blood Urea Nitrogen 7 7 7 7-18 MG/DL Creatinine 0.76 0.75 0.80 0.60-1.30 MG/DL Estimat Glomerular Filtration Rate > 60 > 60 > 60 BUN/Creatinine Ratio 9 9 9 Glucose Level 201 H 92 100 70-105 MG/DL Calcium Level 7.6 L 7.5 L 7.4 L 8.5-10.1 MG/DL White Blood Count 7.5 4.3-11.0 10^3/uL Red Blood Count 2.66 L 4.35-5.85 10^6/uL Hemoglobin 9.4 L 13.3-17.7 G/DL Hematocrit 24 L 40-54 % Mean Corpuscular Volume 91 80-99 FL Mean Corpuscular Hemoglobin 35 H 25-34 PG Mean Corpuscular Hemoglobin Concent 39 H 32-36 G/DL Red Cell Distribution Width 17.2 H 10.0-14.5 % Platelet Count 176 130-400 10^3/uL Mean Platelet Volume 7.4-10.4 FL Neutrophils (%) (Auto) 67 42-75 % Lymphocytes (%) (Auto) 13 12-44 % Monocytes (%) (Auto) 19 H 0-12 % Eosinophils (%) (Auto) 1 0-10 % Basophils (%) (Auto) 1 0-10 % Neutrophils # (Auto) 5.0 1.8-7.8 X 10^3 Lymphocytes # (Auto) 1.0 1.0-4.0 X 10^3 Monocytes # (Auto) 1.4 H 0.0-1.0 X 10^3 Eosinophils # (Auto) 0.1 0.0-0.3 10^3/uL Basophils # (Auto) 0.1 0.0-0.1 10^3/uL Lactic Acid Level 2.61 *H 0.50-2.00 MMOL/L Phosphorus Level 2.7 2.3-4.7 MG/DL Magnesium Level 1.2 L 1.8-2.4 MG/DL Total Bilirubin 13.1 #H 0.1-1.0 MG/DL Aspartate Amino Transf (AST/SGOT) 98 H 5-34 U/L Alanine Aminotransferase (ALT/SGPT) 38 0-55 U/L Alkaline Phosphatase 130 40-136 U/L Total Protein 6.9 6.4-8.2 GM/DL Albumin 2.2 L 3.2-4.5 GM/DL Radiology Date of Exam: 09/15/16 CHEST 1 VIEW, AP/PA ONLY INDICATION: Weakness, slow speech. Study compared 10/29/2014. FINDINGS: The heart size upper limits but no gross overdistention of the vascularity. A dense nodularity projects over the right chest inferolaterally believed to be callus from a right rib deformity. No acute infiltrate. No failure, effusion or pneumothorax. IMPRESSION: No acute appearing abnormality Date of Exam:09/16/16 US HEPATIC (LIVER)[id number] EXAMINATION: Ultrasound of the liver. INDICATION: Cirrhosis. FINDINGS: The pancreas is obscured by bowel gas. The liver has coarse echotexture and is hyperechoic and attenuates the ultrasound beam. This may relate to fatty infiltration, hepatitis or cirrhosis. Nonspecific mild lobulations are seen in the liver contour. No focal mass. The portal vein demonstrate hepatofugal flow compatible with portal hypertension. The gallbladder demonstrate sludge and mild wall thickening with no definite stone. Sonographic Felix sign is reportedly negative. The CBD is obscured. No significant ascites is seen. Very minimal amount of free fluid in subhepatic location is seen. The right kidney is 10.8 CM in length with no hydronephrosis or focal lesion. IMPRESSION: Coarse liver echotexture with no focal mass is seen likely related to chronic hepatitis or cirrhosis. There is reversal of the normal flow in the portal vein compatible with portal hypertension. Physical Exam-([facility]) Physical Exam Vital Signs VS - Last 72 Hours, by Label 09/15/16 09/15/16 09/16/16 09/16/16 23:08 23:18 00:00 01:03 Temp 97.3 97.9 98.0 Pulse 62 63 67 Resp 16 13 15 B/P (MAP) 144/93 112/77 Pulse Ox 99 99 97 98 O2 Delivery Room Air Room Air Room Air Room Air 09/16/16 09/16/16 09/16/16 09/16/16 01:15 01:15 01:19 01:30 Temp 97.5 Pulse 72 70 Resp 19 B/P (MAP) 150/85 Pulse Ox 97 97 O2 Delivery Room Air Room Air Room Air 09/16/16 09/16/16 09/16/16 09/16/16 01:45 02:00 02:15 02:30 Pulse 68 65 61 62 Resp 14 16 13 10 B/P (MAP) 138/83 143/90 132/76 131/85 Pulse Ox 97 98 98 99 O2 Delivery Room Air Room Air Room Air Room Air 09/16/16 09/16/16 09/16/16 09/16/16 02:45 03:00 03:30 04:00 Pulse 65 65 65 Resp 10 16 11 B/P (MAP) 124/82 128/77 128/79 Pulse Ox 99 98 96 O2 Delivery Room Air Room Air Room Air Room Air 09/16/16 09/16/16 09/16/16 09/16/16 04:00 05:00 06:00 07:00 Pulse 60 61 64 67 Resp 11 10 10 B/P (MAP) 136/86 136/82 129/82 Pulse Ox 89 97 98 O2 Delivery Room Air Room Air Room Air 09/16/16 09/16/16 09/16/16 09/16/16 08:45 09:55 12:15 12:45 Temp 98.2 99.2 O2 Delivery Room Air Room Air 09/16/16 09/16/16 09/16/16 13:00 16:09 16:09 Temp 98.6 Pulse 72 O2 Delivery Room Air Capillary Refill : Less Than 3 Seconds General Appearance: WD/WN, no apparent distress HEENT: PERRL/EOMI, scleral icterus (R), scleral icterus (L) Neck: non-tender, full range of motion, supple, normal inspection Respiratory: chest non-tender, lungs clear, normal breath sounds, no respiratory distress, no accessory muscle use, No respiratory distress, No accessory muscle use, No crackles, No wheezing Cardiovascular: normal peripheral pulses, regular rate, rhythm, no gallop, no JVD, no murmur Gastrointestinal: normal bowel sounds, non tender, soft, no pulsatile mass, distended, No guarding, No rebound, No tenderness, spleenomegaly, other (No ascites or fluid shift present) Back: normal inspection, no CVA tenderness, no vertebral tenderness Extremities: normal range of motion, non-tender, normal inspection, no calf tenderness, normal capillary refill, pedal edema (1+ bilaterally) Neurologic/Psychiatric: digital community manager II-XII nml as tested, no motor/sensory deficits, alert, normal mood/affect, oriented x 3 Skin: warm/dry, jaundice Lymphatic: no adenopathy Assessment/Plan Assessment/Plan Plan 56 yo M with end stage liver disease that presented with diffuse weakness Plan End Stage liver disease with portal HTN secondary to chronic Hep C and Alcoholism - Meld Score of 23 on admission - Confusion on admission could be due to HypoNa or hepatic encephalopathy, will hold off on lactulose at this time until Na improves, patient seems to be at baseline this AM - Liver US with signs of cirrhosis - INR 1.8: No signs of bleeding, will get daily INR Severe Hyponatremia - 1 month ago in clinic normal sodium - Will replace slowly with q4hr BMPs, NS @ 50 cc/hr Diffuse Weakness - Likely 2/2 to electrolyte abnormalities - Will consult PT to work with patient - No signs of focal injury Alcoholism - Will monitor for withdraw symptoms, Ativan PRN - Thiamine and Folate daily x 5 days Chronic Hep C: Untreated due to alcohol use - Serology pending Severe Thrombocytopenia - Hematology consulted in ER, due to liver disease Normocytic Anemia likely of chronic dz - Will continue to monitor - No signs of bleeding at this time Urinary Tract Infection - culture pending HTN: currently normotensive - will continue to monitor - hold home blood pressure medications at this time for concerns of sepsis Hypothyroidism - Will get TSH/T4 in AM - continue home dose today FEN: Reg diet DVT PPX: SCDs, lovenox contraindicated due to INR Dispo: Admit to ICU care for severe hypoNa Diagnosis/Problems: Clinical Quality Measures DVT/VTE Risk/Contraindication: Risk Factor Score Per Nursin RFS Level Per Nursing on Admit: 2=Moderate Copy Copies To 1: Blair PEPPER HOLLY R MD Sep 16, 2016 18:31
[2016-09-16] MEDS: THIAMINE 100 MG (VITAMIN B-1) TAB PO SCH (18:58)
[2016-09-16] MEDS: FOLIC ACID 1 MG TAB PO SCH (18:58)
[2016-09-16 21:37] LABS: BLOOD UREA NITROGEN 7 MG/DL (7-18); BUN/CREATININE RATIO 8; CALCIUM 7.4 MG/DL (8.5-10.1); CARBON DIOXIDE 17 MMOL/L (21-32); CREATININE SERUM 0.88 MG/DL (0.60-1.30); GFR ESTIMATED > 60; GLUCOSE 112 MG/DL (70-105)
[2016-09-16 22:09] LABS: ANION GAP 8 MMOL/L (5-14); CHLORIDE 88 MMOL/L (98-107); POTASSIUM 5.1 MMOL/L (3.6-5.0)
[2016-09-16 22:16] LABS: SODIUM 113 MMOL/L (135-145)
[2016-09-17] VITALS (24 sets, daily range): BP systolic 101–165; BP diastolic 72–124
[2016-09-17] MEDS: NS IV 1000 ML 1,000 ML IV SCH ×2 (04:17→22:40)
[2016-09-17 04:42] LABS: BASOPHILS # (AUTO) 0.1 10^3/uL (0.0-0.1); BASOPHILS % (AUTO) 1 % (0-10); EOSINOPHILS # (AUTO) 0.1 10^3/uL (0.0-0.3); EOSINOPHILS % (AUTO) 1 % (0-10); LYMPHOCYTES # (AUTO) 0.8 X 10^3 (1.0-4.0); LYMPHOCYTES % (AUTO) 11 % (12-44); MEAN CORPUSCULAR HEMOGLOBIN 36 PG (25-34); MEAN CORPUSCULAR HGB CONC 38 G/DL (32-36); MEAN CORPUSCULAR VOLUME 94 FL (80-99); MEAN PLATELET VOLUME 11.4 FL (7.4-10.4); MONOCYTES # (AUTO) 1.7 X 10^3 (0.0-1.0); MONOCYTES % (AUTO) 24 % (0-12); NEUTROPHILS # (AUTO) 4.5 X 10^3 (1.8-7.8); NEUTROPHILS % (AUTO) 63 % (42-75); PLATELET COUNT 60 10^3/uL (130-400); RED BLOOD COUNT 2.59 10^6/uL (4.35-5.85); WHITE BLOOD COUNT 7.1 10^3/uL (4.3-11.0)
[2016-09-17 04:46] LABS: INR 1.7 (0.8-1.4)
[2016-09-17 04:54] LABS: ANION GAP 7 MMOL/L (5-14); BLOOD UREA NITROGEN 7 MG/DL (7-18); BUN/CREATININE RATIO 7; CALCIUM 7.5 MG/DL (8.5-10.1); CARBON DIOXIDE 18 MMOL/L (21-32); CHLORIDE 91 MMOL/L (98-107); CREATININE SERUM 0.98 MG/DL (0.60-1.30); GFR ESTIMATED > 60; GLUCOSE 100 MG/DL (70-105); MAGNESIUM 1.6 MG/DL (1.8-2.4); PHOSPHORUS 2.4 MG/DL (2.3-4.7); POTASSIUM 4.1 MMOL/L (3.6-5.0)
[2016-09-17 04:58] LABS: SODIUM 116 MMOL/L (135-145)
[2016-09-17] MEDS: POTASSIUM CL 10MEQ/50ML IVPB 50 ML IV SCH (05:23)
[2016-09-17] MEDS: MAGNESIUM 1 GM/100 ML IVPB 100 ML IV SCH ×3 (05:23→07:06)
[2016-09-17 05:24] LABS: THYROID STIMULATING HORMONE 2.86 UIU/ML (0.35-4.94)
[2016-09-17] MEDS: KCL 20 MEQ TAB (K-DUR) PO SCH (05:24)
[2016-09-17] MEDS: PIPERACILLIN/TAZOBACTAM 4.5 GM/NS100 ML IVPB IV SCH ×6 (05:53→22:20)
[2016-09-17] MEDS: THIAMINE 100 MG (VITAMIN B-1) TAB PO SCH (05:53)
[2016-09-17 07:08] LABS: OSMOLALITY URINE PT 474 mOsm/kg (250-1200)
[2016-09-17 07:11] LABS: HCV INDEX >11.00 Index (0.00-0.79); HIV AG AB SCREEN Non-Reactive (Non-Reactive)
[2016-09-17] MEDS ORDERED: TROUGH ORDER-PHARMACY XX NR (08:00)
--- NOTE | 2016-09-17 08:20 | Pulmonary Consultation ---
History of Present Illness History of Present Illness Date of Consultation 09/17/16 08:15 Time Seen by Provider: 08:15 Date of Admission History of Present Illness 56yo with hx of end stage liver disease, hepatitis C, and continues to drink 3 beers per day. presented to ED 09/15 secondary to increasing confusion and progressive weakness. He was found to have severe hyponatremia. Allergies and Home Medications Allergies Coded Allergies: No Known Drug Allergies (Unverified , 03/18/13) Home Medications Levothyroxine Sodium 25 Mcg Tablet, 25 MCG PO DAILY, (Reported) Losartan Potassium 100 Mg Tablet, 100 MG PO DAILY, (Reported) Meloxicam 7.5 Mg Tablet, 7.5 MG PO DAILY, (Reported) Omeprazole 40 Mg Capsule.dr, 40 MG PO DAILY, (Reported) Potassium Chloride 10 Meq Tablet.er, 10 MEQ PO BID, (Reported) Propranolol HCl 120 Mg Cap.sa.24h, 120 MG PO BID, (Reported) Sildenafil Citrate 50 Mg Tablet, 50 MG PO DAILY PRN for ERECTILE DYSFUNCTION, ( Reported) Torsemide 10 Mg Tablet, 10 MG PO DAILY, (Reported) Past Bieuldp-Tyrymb-Alwlrs Hx Patient Social History Alcohol Use: Regular Use Recreational Drug Use: No Smoking Status: Current Everyday Smoker Type Used: Cigarettes (1/2 ppd) Recent Foreign Travel: No Contact w/Someone Who Travel: No Recent Infectious Disease Expo: No Recent Hopitalizations: No Physical Abuse Screen: No Sexual Abuse: No Immunizations Up To Date Tetanus Booster (TDap): Unknown PED Vaccines UTD: No Seasonal Allergies Seasonal Allergies: Yes Surgeries HX Surgeries: No Respiratory Hx Respiratory Disorders: No Cardiovascular Hx Cardiac Disorders: No Cardiac Disorders: Chronic Edema/Swelling, Hypertension Neurological Hx Neurological Disorders: No Reproductive System Hx Reproductive Disorders: No Sexually Transmitted Disease: No Genitourinary Hx Genitourinary Disorders: No Genitourinary Disorders: Prostate Problems Gastrointestinal Hx Gastrointestinal Disorders: Yes (HEPATITIS C--NO TREATMENT) Gastrointestinal Disorders: Gastroesophageal Reflux, Liver Disease/Jaundice, Hepatitis, Cirrhosis, Irritable Bowel Musculoskeletal Hx Musculoskeletal Disorders: No Endocrine Hx Endocrine Disorders: No HEENT HX ENT Disorders: No Cancer Hx Cancer: No Psychosocial Hx Psychiatric Problems: Yes Behavioral Health Disorders: Anxiety, Depression Integumentary HX Skin/Integumentary Disorder: No Blood Transfusions Hx Blood Disorders: Yes (ANEMIA AND THROMBOCYTOPENIA-FELT TO BE RELATED TO ALCOHOL ABUSE) Adverse Reaction to a Blood Tr: No Family Medical History Family Medial History: Family history: Cardiovascular disease 03 FATHER Family history: Hypertension 03 MOTHER Review of Systems Time Seen by Provider: 09:04 Constitutional: Malaise, Sweats, Weakness, No: Chills, Fever, Other Respiratory: Cough, Dry, SOB with excertion, Shortness of breath Cardiovascular: No: Chest Pain, Edema, Lt Headedness, Orthopnea, Other, Palpitations, Paroxysmal Noc. Dyspnea Gastrointestinal: Abdominal Pain, Constipation Neurological: Confusion, Incoordination, Weakness Exam Exam Vital Signs Date Time Temp Pulse Resp B/P (MAP) Pulse Ox O2 Delivery O2 Flow Rate FiO2 09/17/16 05:00 64 13 151/94 Room Air 09/17/16 04:05 Room Air 09/17/16 04:00 73 9 165/93 Room Air 09/17/16 03:00 63 13 156/95 Room Air 09/17/16 02:00 65 11 139/89 Room Air 09/17/16 01:00 66 09/17/16 01:00 65 11 150/94 Room Air 09/17/16 00:05 96 Room Air 09/17/16 00:00 66 16 150/94 Room Air 09/16/16 23:00 65 13 133/84 Room Air 09/16/16 22:00 71 17 147/85 Room Air 09/16/16 21:00 61 10 175/101 Room Air 09/16/16 20:15 96 Room Air 09/16/16 20:00 69 15 150/94 Room Air 09/16/16 19:00 68 11 149/84 Room Air 09/16/16 19:00 67 09/16/16 18:00 69 16 142/89 Room Air 09/16/16 17:00 68 11 127/85 Room Air 09/16/16 16:09 Room Air 09/16/16 16:09 98.6 09/16/16 16:00 72 17 137/79 Room Air 09/16/16 15:00 72 15 141/90 Room Air 09/16/16 14:00 71 13 125/77 Room Air 09/16/16 13:00 72 09/16/16 13:00 70 16 165/89 Room Air 09/16/16 12:45 99.2 09/16/16 12:15 Room Air 09/16/16 11:00 78 15 135/80 Room Air 09/16/16 10:00 66 20 136/78 Room Air 09/16/16 09:55 98.2 09/16/16 09:00 66 10 149/86 97 Room Air 09/16/16 08:45 Room Air I & O 09/17/16 07:00 Intake Total 3084.5 ml Output Total 3225 ml Balance -140.5 ml General Appearance: Chronically ill, Mild Distress HEENT: TMs Normal, Pharynx Normal Neck: Normal Inspection, Non Tender, Supple Respiratory: Chest Non Tender, Lungs Clear, Normal Breath Sounds, Other (dry cough) Cardiovascular: Regular Rate, Rhythm, No No Edema, No JVD, Normal Peripheral Pulses Capillary Refill: Less Than 3 Seconds Gastrointestinal: normal bowel sounds, non tender, soft, no pulsatile mass, distended, No guarding, No rebound, No tenderness, spleenomegaly, other (No ascites or fluid shift present) Extremity: Normal Capillary Refill, Non Tender, No Calf Tenderness Neurologic/Psychiatric: Alert, Oriented x3, No Motor/Sensory Deficits, frozen food department manager II- XII Norm as Tested, Other (flat affect) Results Lab Laboratory Tests 09/15/16 23:00 09/16/16 00:10 09/16/16 01:34 09/16/16 03:00 09/16/16 04:00 09/16/16 09:15 09/16/16 21:10 09/17/16 03:56 Assessment/Plan Assessment/Plan Endstage liver disease with portal HTN secondary to chronic hep C and alcoholism -Start 100mg of spironolactone daily and 40mg of lasix daily Severe hyponatremia -improving Continue NS at 50 cc/hr Metabolic lactic acidosis -monitor Severe thrombocytopenia -hematology following Anemia -monitor UTI -cultures pending -Continue zosyn Progressive weakness probably secondary to hyponatremia and underlying disease -PT/OT 255 Clinical Quality Measures DVT/VTE Risk/Contraindication: Risk Factor Score Per Nursin RFS Level Per Nursing on Admit: 2=Moderate YUMIKO HDEZ DO Sep 17, 2016 8:20 am
--- NOTE | 2016-09-17 08:22 | Diagnostic Imaging Report ---
Portable upright radiograph of the chest. INDICATION: Dyspnea. FINDINGS: The heart is moderately enlarged. There is a mild pulmonary vascular congestion. No significant effusion or pneumothorax. Mediastinum and freddy appear unremarkable. IMPRESSION: Cardiomegaly with minimal vascular congestion. Dictated by: Dictated on workstation # [id number]
--- NOTE | 2016-09-17 08:48 | Physical Therapy Evaluation ---
PT Evaluation-General Medical Diagnosis Admission Date Sep 16, 2016 at 00:25 Medical Diagnosis: weakness Onset Date: Sep 16, 2016 Therapy Diagnosis Therapy Diagnosis: impaired mobility, strength, balance Height/Weight Height (Feet): 6 Height (Inches): 1.00 Weight (Pounds): 277 Weight (Ounces): 0.0 Precautions Precautions/Isolations: Fall Prevention, Standard Precautions Referral Physician: Beatriz Nam MD Reason for Referral: Evaluation/Treatment Medical History Pertinent Medical History: HTN, Smoking Additional Medical History end stage liver disease, hep C, alcoholism, illicit drug use, cirrhosis Current History went to ER with confusion and weakness Reviewed History: Yes Social History Home: Single Level Patient is a poor historian, he has a SO and states he has a few steps to enter his home. Prior/Core FIM Prior Level of Function Functional Landing Measure 0=Not Assessed/NA 4=Minimal Assistance 1=Total Assistance 5=Supervision or Setup 2=Maximal Assistance 6=Modified Landing 3=Moderate Assistance 7=Complete Landing Bed Mobility: 7 Transfers (B,C,W/C) (FIM): 6 Gait: 6 Patient states he sometimes uses a single point cane. PT Evaluation-Current Subjective Patient in bed pre tx, agrees to PT, seems confused, lethargic, very slow to follow commands. No complaints of pain. Patient has had a bowel movement in the bed and needs to be cleaned. Pt/Family Goals "I want you to get me better" Objective Patient Orientation: Person Attachments: Mckenzie Catheter, IV ROM/Strength ROM Lower Extremities WNL Strenght Lower Extremities 4-/5 gross bilateral lower extremities Integumentary/Posture Bowel Incontinence: Yes Bladder Incontinence: Mckenzie Cath Neuromuscular (Tone, Coordination, Reflexes) Decreased coordination on the right side very observable during ambulation. Sensory Vision: Functional Hearing: Functional Sensation Right Lower Extremit: Intact Sensation Left Lower Extremity: Intact Sensation Lower Extremities Patient has intact light touch sensation but states that he does have some numbness in his right leg. Transfers Functional Landing Measure 0=Not Assessed/NA 4=Minimal Assistance 1=Total Assistance 5=Supervision or Setup 2=Maximal Assistance 6=Modified Landing 3=Moderate Assistance 7=Complete Landing Transfers (B, C, W/C) (FIM): 3 Scootin Rollin Supine to/from Sit: 3 Sit to/from Stand: 4 leans to the right a little, cues for safety and hand placement Gait Mode of Locomotion: Walk Anticipated Mode of Locomotion: Walk Gait (FIM): 1 Distance: 20' Gait Level of Assist: 4 Gait Persons Needed: 1 Gait Assistive Device: FWW Comments/Gait Description Very slow, leans to the right, needs assist with balance and guiding his walker. Balance Sitting Static: Fair Sitting Dynamic: Fair Standing Static: Poor Standing Dynamic: Poor Treatment Patient sat in a recliner post tx with nurse call, phone, tray, legs elevated. Assessment/Needs Patient has impaired mobility, strength, endurance, is a fall risk. Rehab Potential: Fair PT Intermediate Goals Intermediate Goals PT Game Breeding Farm Manager Goals Time Frame: Sep 24, 2016 Transfers (B,C,W/C) (FIM): 4 Gait (FIM): 4 Distance: 150' Gait Level of Assist: 4 Gait Assistive Device: FWW PT Plan Problem List Problem List: Activity Tolerance, Functional Strength, Safety, Balance, Gait, Transfer, Bed Mobility Treatment/Plan Treatment Plan: Continue Plan of Care Treatment Plan: Bed Mobility, Education, Functional Activity Karen, Functional Strength, Gait, Safety, Therapeutic Exercise, Transfers Treatment Duration: Sep 24, 2016 Frequency: 6 times per week Estimated Hrs Per Day: .25 hour per day (15-30 min a day) Patient and/or Family Agrees t: Yes Safety Risks/Education Patient Education: Gait Training, Transfer Techniques, Correct Positioning, Safety Issues Teaching Recipient: Patient Teaching Methods: Demonstration, Discussion Response to Teaching: Reinforcement Needed Discharge Recommendations Plan Patient will perform bed mobility and transfer training, balance and endurance training, functional strengthening, stair training, gait training, and education , to improve functional mobility and independence at home. Therapy D/C Recommendations: Home w/ Family Support Time/GCodes Time In: 815 Time Out: 845 Total Billed Treatment Time: 30 Total Billed Treatment 1 visit TEOFILO 15' GT 15' JOHN MACKEY PT Sep 17, 2016 08:48
[2016-09-17] MEDS: PANTOPRAZOLE 40 MG/10 ML (PROTONIX) VIAL IV SCH ×2 (10:00→21:28)
[2016-09-17] MEDS: FUROSEMIDE 40 MG/4 ML INJ (LASIX) IV SCH (10:00)
[2016-09-17] MEDS: FOLIC ACID 1 MG TAB PO SCH (10:00)
[2016-09-17] MEDS: SPIRONOLACTONE 100 MG (ALDACTONE) TABLET PO SCH (10:03)
[2016-09-17] MEDS: VANCOMYCIN INJECTION 1,500 MG in NS IV 500 ML 500 ML IV SCH ×2 (10:03→21:28)
[2016-09-17] MEDS: LORazepam INJ 2 MG/ML (ATIVAN) VIAL IVP PRN (10:19)
[2016-09-17] MEDS: PROPRANOLOL LA 120 MG (INDERAL LA) CAP NON-FORMULARY PO SCH ×2 (15:02→21:28)
--- NOTE | 2016-09-17 19:11 | Progress Note (SOAP) ---
Subjective Subjective/Events-last exam Patient states that he is feeling better but is still weak. Has not really got out of bed much since arriving here. Sitting in chair this AM. Tolerating PO diet. Denies pain Review of Systems Date Seen by Provider: Sep 17, 2016 Time Seen by Provider: 09:50 General: No Chills, Fatigue, Malaise Pulmonary: No Dyspnea, No Cough Cardiovascular: No: Chest Pain, Palpitations Gastrointestinal: No: Abdominal Pain, Nausea, Vomiting Genitourinary: Frequency Neurological: Incoordination, Weakness Objective Exam Last Set of Vital Signs Vital Signs Date Time Temp Pulse Resp B/P (MAP) Pulse Ox O2 Delivery O2 Flow Rate FiO2 09/17/16 18:00 65 12 123/72 100 Room Air 09/17/16 16:00 97.7 Capillary Refill : Less Than 3 Seconds I&O Bad tableGeneral: Alert, Oriented X3, Cooperative, No Acute Distress HEENT: Other (Scleral icterus bilaterally) Lungs: Clear to Auscultation, Normal Air Movement Heart: Regular Rate, No Murmurs Abdomen: Normal Bowel Sounds, Soft, No Tenderness, Other (+ splenomegaly, no ascites) Extremities: No Edema, No Tenderness/Swelling Neuro: Normal Speech Psych/Mental Status: Mental Status NL, Mood NL Results/Procedures Lab Laboratory Tests 09/16/16 21:10: Sodium Level 113*L, Potassium Level 5.1H, Chloride Level 88L, Carbon Dioxide Level 17L, Anion Gap 8, Blood Urea Nitrogen 7, Creatinine 0.88, Estimat Glomerular Filtration Rate > 60, BUN/Creatinine Ratio 8, Glucose Level 112H, Calcium Level 7.4L 09/17/16 03:56: Sodium Level 116*L, Potassium Level 4.1, Chloride Level 91L, Carbon Dioxide Level 18L, Anion Gap 7, Blood Urea Nitrogen 7, Creatinine 0.98, Estimat Glomerular Filtration Rate > 60, BUN/Creatinine Ratio 7, Glucose Level 100, Calcium Level 7.5L, White Blood Count 7.1, Red Blood Count 2.59L, Hemoglobin 9.2L, Hematocrit 24L, Mean Corpuscular Volume 94, Mean Corpuscular Hemoglobin 36H, Mean Corpuscular Hemoglobin Concent 38H, Red Cell Distribution Width 17.0H , Platelet Count 60L, Mean Platelet Volume 11.4H, Neutrophils (%) (Auto) 63, Lymphocytes (%) (Auto) 11L, Monocytes (%) (Auto) 24H, Eosinophils (%) (Auto) 1, Basophils (%) (Auto) 1, Neutrophils # (Auto) 4.5, Lymphocytes # (Auto) 0.8L, Monocytes # (Auto) 1.7H, Eosinophils # (Auto) 0.1, Basophils # (Auto) 0.1, Prothrombin Time 20.0H, INR Comment 1.7H, Phosphorus Level 2.4, Magnesium Level 1.6L, Thyroid Stimulating Hormone (TSH) 2.86, Free Thyroxine 0.90 09/17/16 08:50: Vancomycin Level Trough 19.9 Microbiology 09/15/16 Blood Culture - Preliminary, Resulted No growth 09/15/16 Urine Culture - Preliminary, Resulted Radiology Date of Exam: 09/15/16 CHEST 1 VIEW, AP/PA ONLY INDICATION: Weakness, slow speech. Study compared 10/29/2014. FINDINGS: The heart size upper limits but no gross overdistention of the vascularity. A dense nodularity projects over the right chest inferolaterally believed to be callus from a right rib deformity. No acute infiltrate. No failure, effusion or pneumothorax. IMPRESSION: No acute appearing abnormality Date of Exam:09/16/16 US HEPATIC (LIVER)[id number] EXAMINATION: Ultrasound of the liver. INDICATION: Cirrhosis. FINDINGS: The pancreas is obscured by bowel gas. The liver has coarse echotexture and is hyperechoic and attenuates the ultrasound beam. This may relate to fatty infiltration, hepatitis or cirrhosis. Nonspecific mild lobulations are seen in the liver contour. No focal mass. The portal vein demonstrate hepatofugal flow compatible with portal hypertension. The gallbladder demonstrate sludge and mild wall thickening with no definite stone. Sonographic Felix sign is reportedly negative. The CBD is obscured. No significant ascites is seen. Very minimal amount of free fluid in subhepatic location is seen. The right kidney is 10.8 CM in length with no hydronephrosis or focal lesion. IMPRESSION: Coarse liver echotexture with no focal mass is seen likely related to chronic hepatitis or cirrhosis. There is reversal of the normal flow in the portal vein compatible with portal hypertension. Assessment/Plan Assessment/Plan Plan 56 yo M with end stage liver disease that presented with diffuse weakness Plan End Stage liver disease with portal HTN secondary to chronic Hep C and Alcoholism - Meld Score of 23 on admission - Confusion on admission could be due to HypoNa or hepatic encephalopathy, will hold off on lactulose at this time until Na improves, patient seems to be at baseline this AM - Liver US with signs of cirrhosis - INR 1.8: No signs of bleeding, will get daily INR - Spironolactone and Lasix added today by Dr Flood Severe Hyponatremia: improving - 1 month ago in clinic normal sodium - Will replace slowly with q4hr BMPs, NS @ 50 cc/hr Diffuse Weakness - Likely 2/2 to electrolyte abnormalities - Will consult PT to work with patient - No signs of focal injury Alcoholism - Will monitor for withdraw symptoms, Ativan PRN - Thiamine and Folate daily x 5 days - Discussed with patient the importance of alcohol cessation given severity of liver disease Chronic Hep C: Untreated due to alcohol use - Serology pending Severe Thrombocytopenia - Hematology consulted in ER, due to liver disease Normocytic Anemia likely of chronic dz - Will continue to monitor - No signs of bleeding at this time Urinary Tract Infection - NGTD, Will d/c antibiotics tomorrow if cultures remain neg HTN: currently normotensive - will continue to monitor - hold home blood pressure medications at this time for concerns of sepsis Hypothyroidism - Will get TSH/T4 in AM - continue home dose today FEN: Reg diet DVT PPX: SCDs, lovenox contraindicated due to INR Dispo: continue admission to ICU care for severe hypoNa Diagnosis/Problems: Clinical Quality Measures DVT/VTE Risk/Contraindication: Risk Factor Score Per Nursin RFS Level Per Nursing on Admit: 2=Moderate JOHN LAMAS MD Sep 17, 2016 19:11
[2016-09-18] VITALS (16 sets, daily range): BP systolic 108–170; BP diastolic 69–119
[2016-09-18] MEDS: LORazepam INJ 2 MG/ML (ATIVAN) VIAL IVP PRN ×2 (00:28→21:42)
[2016-09-18 04:26] LABS: BASOPHILS # (AUTO) 0.1 10^3/uL (0.0-0.1); BASOPHILS % (AUTO) 2 % (0-10); EOSINOPHILS # (AUTO) 0.2 10^3/uL (0.0-0.3); EOSINOPHILS % (AUTO) 2 % (0-10); LYMPHOCYTES % (AUTO) 14 % (12-44); MEAN CORPUSCULAR HEMOGLOBIN 36 PG (25-34); MEAN CORPUSCULAR HGB CONC 38 G/DL (32-36); MEAN CORPUSCULAR VOLUME 95 FL (80-99); MEAN PLATELET VOLUME 11.8 FL (7.4-10.4); MONOCYTES # (AUTO) 1.8 X 10^3 (0.0-1.0); MONOCYTES % (AUTO) 24 % (0-12); NEUTROPHILS # (AUTO) 4.3 X 10^3 (1.8-7.8); NEUTROPHILS % (AUTO) 58 % (42-75); PLATELET COUNT 68 10^3/uL (130-400); RED BLOOD COUNT 2.67 10^6/uL (4.35-5.85); RED CELL DISTRIBUTION WIDTH 17.6 % (10.0-14.5); WHITE BLOOD COUNT 7.4 10^3/uL (4.3-11.0)
[2016-09-18 04:36] LABS: INR 1.8 (0.8-1.4); PROTHROMBIN TIME PATIENT 20.7 SEC (12.2-14.7)
[2016-09-18 05:14] LABS: ANION GAP 11 MMOL/L (5-14); BLOOD UREA NITROGEN 9 MG/DL (7-18); BUN/CREATININE RATIO 9; CALCIUM 7.3 MG/DL (8.5-10.1); CARBON DIOXIDE 16 MMOL/L (21-32); CHLORIDE 94 MMOL/L (98-107); CREATININE SERUM 0.96 MG/DL (0.60-1.30); GFR ESTIMATED > 60; GLUCOSE 91 MG/DL (70-105); MAGNESIUM 1.5 MG/DL (1.8-2.4); PHOSPHORUS 3.1 MG/DL (2.3-4.7); POTASSIUM 4.1 MMOL/L (3.6-5.0)
[2016-09-18 05:22] LABS: SODIUM 121 MMOL/L (135-145)
[2016-09-18] MEDS: KCL 20 MEQ TAB (K-DUR) PO SCH (05:43)
[2016-09-18] MEDS: POTASSIUM CL 10MEQ/50ML IVPB 50 ML IV SCH (05:43)
[2016-09-18] MEDS: MAGNESIUM 1 GM/100 ML IVPB 100 ML IV SCH ×3 (05:43→07:23)
[2016-09-18] MEDS: NS IV 1000 ML 1,000 ML IV SCH (06:15)
[2016-09-18] MEDS: PIPERACILLIN/TAZOBACTAM 4.5 GM/NS100 ML IVPB IV SCH ×6 (06:19→21:42)
[2016-09-18] MEDS: FUROSEMIDE 40 MG/4 ML INJ (LASIX) IV SCH (06:19)
--- NOTE | 2016-09-18 07:54 | Diagnostic Imaging Report ---
INDICATION: Hyponatremia. COMPARISON: 09/17/2016 FINDINGS: Single frontal radiographic view of the chest was obtained and demonstrates stable cardiac silhouette and mild pulmonary vascular congestion. Aeration of the lungs is stable. There is no new focal alveolar consolidation, large effusion, nor pneumothorax. Bony structures show no gross acute abnormalities. IMPRESSION: 1. Stable exam of the chest showing cardiomegaly and mild pulmonary vascular congestion. Dictated by: Dictated on workstation # [id number]
[2016-09-18] MEDS ORDERED: TROUGH ORDER-PHARMACY XX NR (08:00)
--- NOTE | 2016-09-18 08:23 | Pulmonary Progress Note ---
Subjective Time Seen by Provider: 08:19 Subjective/Events-last exam Pt appears to be doing better. No complications noted. Exam Exam Vital Signs Date Time Temp Pulse Resp B/P (MAP) Pulse Ox O2 Delivery O2 Flow Rate FiO2 09/18/16 06:00 70 14 146/89 100 Room Air 09/18/16 05:00 68 12 108/69 100 Room Air 09/18/16 04:00 98.0 09/18/16 04:00 96 Room Air 09/18/16 04:00 65 10 136/95 100 Room Air 09/18/16 03:00 74 13 162/89 100 Room Air 09/18/16 02:00 73 23 147/119 100 Room Air 09/18/16 01:00 72 09/18/16 01:00 73 13 144/96 100 Room Air 09/18/16 00:00 96 Room Air 09/18/16 00:00 98.3 09/18/16 00:00 74 30 126/88 100 Room Air 09/17/16 23:00 72 16 132/104 100 Room Air 09/17/16 22:00 71 17 139/79 100 Room Air 09/17/16 21:00 70 16 101/80 100 Room Air 09/17/16 20:00 64 13 139/86 100 Room Air 09/17/16 20:00 98.2 09/17/16 20:00 96 Room Air 09/17/16 19:00 70 09/17/16 19:00 64 12 135/80 100 Room Air 09/17/16 18:00 65 12 123/72 100 Room Air 09/17/16 17:00 66 14 133/85 90 Room Air 09/17/16 16:00 97.7 09/17/16 16:00 65 13 155/102 Room Air 09/17/16 16:00 Room Air 09/17/16 15:00 61 9 144/92 93 Room Air 09/17/16 14:00 61 9 131/94 Room Air 09/17/16 13:00 62 10 143/92 Room Air 09/17/16 13:00 62 09/17/16 12:00 Room Air 09/17/16 12:00 97.4 09/17/16 12:00 65 12 164/124 Room Air 09/17/16 11:00 63 18 156/114 100 Room Air 09/17/16 10:00 63 14 142/106 93 Room Air 09/17/16 09:00 66 20 140/108 100 Room Air I & O 09/18/16 07:00 Intake Total 2590 ml Output Total 3350 ml Balance -760 ml General Appearance: Chronically ill, Mild Distress HEENT: TMs Normal, Pharynx Normal Neck: Normal Inspection, Non Tender, Supple Respiratory: Chest Non Tender, Lungs Clear, Normal Breath Sounds, Other (dry cough) Cardiovascular: Regular Rate, Rhythm, No No Edema, No JVD, Normal Peripheral Pulses Capillary Refill: Less Than 3 Seconds Gastrointestinal: normal bowel sounds, non tender, soft, no pulsatile mass, distended, No guarding, No rebound, No tenderness, spleenomegaly, other (No ascites or fluid shift present) Extremity: Normal Capillary Refill, Non Tender, No Calf Tenderness Neurologic/Psychiatric: Alert, Oriented x3, No Motor/Sensory Deficits, vegetable specker II- XII Norm as Tested, Other (flat affect) Results Lab Laboratory Tests 09/16/16 09:15 09/16/16 21:10 09/17/16 03:56 09/18/16 03:32 Assessment/Plan Assessment/Plan Endstage liver disease with portal HTN secondary to chronic hep C and alcoholism -Start 100mg of spironolactone daily and 40mg of lasix daily Severe hyponatremia -improving Continue NS at 50 cc/hr Metabolic lactic acidosis -monitor Severe thrombocytopenia -hematology following Anemia -monitor UTI -cultures pending -Continue zosyn Progressive weakness probably secondary to hyponatremia and underlying disease -PT/OT 233 Clinical Quality Measures DVT/VTE Risk/Contraindication: Risk Factor Score Per Nursin RFS Level Per Nursing on Admit: 2=Moderate YUMIKO HDEZ DO Sep 18, 2016 08:23
[2016-09-18] MEDS ORDERED: SODIUM BICARB 8.4% 50 MEQ/50 ML (ABBOTT) SYR IV NR (08:30)
[2016-09-18] MEDS: PROPRANOLOL LA 120 MG (INDERAL LA) CAP NON-FORMULARY PO SCH ×2 (09:46→20:05)
[2016-09-18] MEDS: THIAMINE 100 MG (VITAMIN B-1) TAB PO SCH (09:46)
[2016-09-18] MEDS: FOLIC ACID 1 MG TAB PO SCH (09:46)
[2016-09-18] MEDS: SPIRONOLACTONE 100 MG (ALDACTONE) TABLET PO SCH (09:46)
--- NOTE | 2016-09-18 10:33 | Physical Therapy Daily Note ---
PT Daily Note-Current Subjective Pt. somewhat confused. States he can do anything. Pain Numeric Pain Scale: 0-No Pain Mental Status Patient Orientation: Person Attachments: IV Transfers Functional [place] Measure 0=Not Assessed/NA 4=Minimal Assistance 1=Total Assistance 5=Supervision or Setup 2=Maximal Assistance 6=Modified [place] 3=Moderate Assistance 7=Complete IndependenceIRFPAI Quality Coding Scale 6 Independent with activity with or without an assistive device 5 Patient requires set up or clean up by helper. Patient completes activity by themselves 4 Supervision or touching assist (CGA). [place] provide cues , steadying assist 3 The helper provides less than half the effort to complete the activity 2 The helper provides more than half the effort to complete the activity 1 Dependent. The helper does all the effort to complete an activity 7 Patient refused to complete or attempt activity 9 The patient did not perform the activity before the current illness or injury 88 Not attempted due to Medical conditions or safety concerns Transfers (B, C, W/C) (FIM): 4 sit to stand ans sup to sit all min to CGA. sometimes sloppy, poor control Gait Training Gait (FIM): 1 Distance (FIM): 1=up to 49 ft Gait Assistive Device: FWW 15ft, 7ft, needs min to mod assist, poor awareness and control; Exercises Supine Ex: Bridging, Ankle pumps, Rolling, Heel Slides, Scooting, Straight leg raise, Hip abd/add Supine Reps: 12 Assessment Current Status: Good Progress PT Surveillance Officer Goals Surveillance Officer Goals PT Surveillance Officer Goals Time Frame: Sep 24, 2016 Transfers (B,C,W/C) (FIM): 4 Gait (FIM): 4 Distance: 150' Gait Level of Assist: 4 Gait Assistive Device: FWW PT Plan Treatment/Plan Treatment Plan: Continue Plan of Care Treatment Plan: Bed Mobility, Education, Functional Activity Karen, Functional Strength, Gait, Safety, Therapeutic Exercise, Transfers Treatment Duration: Sep 24, 2016 Frequency: 6 times per week Estimated Hrs Per Day: .25 hour per day (15-30 min a day) Patient and/or Family Agrees t: Yes Safety Risks/Education Patient Education: Gait Training, Transfer Techniques Teaching Recipient: Patient Teaching Methods: Demonstration, Discussion Response to Teaching: Verbalize Understanding, Return Demonstration, Reinforcement Needed needs instruction and education for all funct Time/GCodes Time In: 1005 Time Out: 1030 Total Billed Treatment Time: 25 Total Billed Treatment 1,EX10,FA15 G Codes Necessary: BK Niño FINISH CARPENTER Sep 18, 2016 10:33
--- NOTE | 2016-09-18 11:59 | Progress Note (SOAP) ---
Subjective Subjective/Events-last exam Patient states that he feels better this AM. Seems to be more confused this AM though. Lab improving. Denies any pain. Up to the side of the bed yesterday with PT. Tolerating PO diet Review of Systems Date Seen by Provider: Sep 18, 2016 Time Seen by Provider: 09:35 General: No Chills, Fatigue Pulmonary: No Dyspnea, No Cough Cardiovascular: No: Chest Pain, Palpitations Gastrointestinal: No: Abdominal Pain, Constipation, Diarrhea, Nausea, Vomiting Genitourinary: Frequency Musculoskeletal: leg pain Neurological: Weakness Objective Exam Last Set of Vital Signs Vital Signs Date Time Temp Pulse Resp B/P (MAP) Pulse Ox O2 Delivery O2 Flow Rate FiO2 09/18/16 10:51 98.6 73 20 142/93 100 Room Air Capillary Refill : Less Than 3 Seconds I&O Intake and Output 09/18/16 00:00 Intake Total 2490 ml Output Total 4000 ml Balance -1510 ml Intake Oral 1190 ml IV Total 1300 ml Output Urine Total 4000 ml # Bowel Movements 1 General: Alert, Cooperative, No Acute Distress, Other (Oriented to person and place, not time) HEENT: PERRLA Lungs: Clear to Auscultation, Normal Air Movement Heart: Regular Rate, No Murmurs Abdomen: Normal Bowel Sounds, Soft, No Tenderness, Other (+ Splenomeagly) Extremities: No Edema, No Tenderness/Swelling Skin: No Rashes, No Breakdown Neuro: Normal Speech, Strength at 5/5 X4 Ext, Cranial Nerves 3-12 NL Results/Procedures Lab Laboratory Tests 09/18/16 03:32: White Blood Count 7.4, Red Blood Count 2.67L, Hemoglobin 9.5L, Hematocrit 25L, Mean Corpuscular Volume 95, Mean Corpuscular Hemoglobin 36H, Mean Corpuscular Hemoglobin Concent 38H, Red Cell Distribution Width 17.6H, Platelet Count 68L, Mean Platelet Volume 11.8H, Neutrophils (%) (Auto) 58, Lymphocytes (%) (Auto) 14 , Monocytes (%) (Auto) 24H, Eosinophils (%) (Auto) 2, Basophils (%) (Auto) 2, Neutrophils # (Auto) 4.3, Lymphocytes # (Auto) 1.0, Monocytes # (Auto) 1.8H, Eosinophils # (Auto) 0.2, Basophils # (Auto) 0.1, Prothrombin Time 20.7H, INR Comment 1.8H, Sodium Level 121*L, Potassium Level 4.1, Chloride Level 94L, Carbon Dioxide Level 16L, Anion Gap 11, Blood Urea Nitrogen 9, Creatinine 0.96, Estimat Glomerular Filtration Rate > 60, BUN/Creatinine Ratio 9, Glucose Level 91, Calcium Level 7.3L, Phosphorus Level 3.1, Magnesium Level 1.5L Microbiology 09/15/16 Blood Culture - Preliminary, Resulted No growth 09/15/16 Urine Culture - Preliminary, Resulted Radiology Date of Exam: 09/15/16 CHEST 1 VIEW, AP/PA ONLY INDICATION: Weakness, slow speech. Study compared 10/29/2014. FINDINGS: The heart size upper limits but no gross overdistention of the vascularity. A dense nodularity projects over the right chest inferolaterally believed to be callus from a right rib deformity. No acute infiltrate. No failure, effusion or pneumothorax. IMPRESSION: No acute appearing abnormality Date of Exam:09/16/16 US HEPATIC (LIVER)[id number] EXAMINATION: Ultrasound of the liver. INDICATION: Cirrhosis. FINDINGS: The pancreas is obscured by bowel gas. The liver has coarse echotexture and is hyperechoic and attenuates the ultrasound beam. This may relate to fatty infiltration, hepatitis or cirrhosis. Nonspecific mild lobulations are seen in the liver contour. No focal mass. The portal vein demonstrate hepatofugal flow compatible with portal hypertension. The gallbladder demonstrate sludge and mild wall thickening with no definite stone. Sonographic Felix sign is reportedly negative. The CBD is obscured. No significant ascites is seen. Very minimal amount of free fluid in subhepatic location is seen. The right kidney is 10.8 CM in length with no hydronephrosis or focal lesion. IMPRESSION: Coarse liver echotexture with no focal mass is seen likely related to chronic hepatitis or cirrhosis. There is reversal of the normal flow in the portal vein compatible with portal hypertension. Assessment/Plan Assessment/Plan Plan 56 yo M with end stage liver disease that presented with diffuse weakness Plan End Stage liver disease with portal HTN secondary to chronic Hep C and Alcoholism - Meld Score of 23 on admission - Confusion on admission could be due to HypoNa or hepatic encephalopathy, will hold off on lactulose at this time until Na improves, patient seems to be at baseline this AM - Liver US with signs of cirrhosis - INR 1.8: No signs of bleeding, will get daily INR - Spironolactone and Lasix added by Dr Flood Severe Hyponatremia: improving - 1 month ago in clinic normal sodium - Will replace slowly with daily BMPs, NS @ 50 cc/hr - D/c downs Diffuse Weakness - Likely 2/2 to electrolyte abnormalities - Will consult PT to work with patient - No signs of focal injury Alcoholism - Will monitor for withdraw symptoms, Ativan PRN - Thiamine and Folate daily x 5 days - Discussed with patient the importance of alcohol cessation given severity of liver disease Chronic Hep C: Untreated due to alcohol use - Serology pending Severe Thrombocytopenia - Hematology consulted in ER, due to liver disease Normocytic Anemia likely of chronic dz - Will continue to monitor - No signs of bleeding at this time Urinary Tract Infection - NGTD, Will d/c antibiotics tomorrow if cultures remain neg HTN: currently normotensive - will continue to monitor - hold home blood pressure medications at this time for concerns of sepsis Hypothyroidism: normal TSH/T4 - continue home dose today FEN: Reg diet DVT PPX: SCDs, lovenox contraindicated due to INR Dispo: Ok to transfer down to floor today Diagnosis/Problems: Clinical Quality Measures DVT/VTE Risk/Contraindication: Risk Factor Score Per Nursin RFS Level Per Nursing on Admit: 2=Moderate JOHN LAMAS MD Sep 18, 2016 11:59
[2016-09-18 17:07] LABS: MEAN PLATELET VOLUME 11.6 FL (7.4-10.4); RED BLOOD COUNT 2.69 10^6/uL (4.35-5.85); WHITE BLOOD COUNT 6.9 10^3/uL (4.3-11.0)
[2016-09-18 17:16] LABS: INR 1.7 (0.8-1.4); PROTHROMBIN TIME PATIENT 20.1 SEC (12.2-14.7)
[2016-09-18] MEDS: ALFUZOSIN HCL 10 MG TAB (UROXATRAL) PO SCH (19:33)
[2016-09-19] VITALS (7 sets, daily range): BP systolic 122–156; BP diastolic 69–89
[2016-09-19 06:20] LABS: BASOPHILS # (AUTO) 0.2 10^3/uL (0.0-0.1); BASOPHILS % (AUTO) 3 % (0-10); EOSINOPHILS # (AUTO) 0.2 10^3/uL (0.0-0.3); EOSINOPHILS % (AUTO) 4 % (0-10); LYMPHOCYTES # (AUTO) 1.4 X 10^3 (1.0-4.0); LYMPHOCYTES % (AUTO) 25 % (12-44); MEAN CORPUSCULAR HEMOGLOBIN 36 PG (25-34); MEAN CORPUSCULAR HGB CONC 37 G/DL (32-36); MEAN CORPUSCULAR VOLUME 95 FL (80-99); MEAN PLATELET VOLUME 10.7 FL (7.4-10.4); MONOCYTES # (AUTO) 1.3 X 10^3 (0.0-1.0); MONOCYTES % (AUTO) 23 % (0-12); NEUTROPHILS # (AUTO) 2.6 X 10^3 (1.8-7.8); NEUTROPHILS % (AUTO) 46 % (42-75); PLATELET COUNT 73 10^3/uL (130-400); RED BLOOD COUNT 2.67 10^6/uL (4.35-5.85); WHITE BLOOD COUNT 5.7 10^3/uL (4.3-11.0)
[2016-09-19 06:29] LABS: INR 1.9 (0.8-1.4); PROTHROMBIN TIME PATIENT 21.8 SEC (12.2-14.7)
[2016-09-19] MEDS: THIAMINE 100 MG (VITAMIN B-1) TAB PO SCH (06:29)
[2016-09-19] MEDS: PANTOPRAZOLE 40 MG (PROTONIX) TAB PO SCH (06:29)
[2016-09-19] MEDS: PIPERACILLIN/TAZOBACTAM 4.5 GM/NS100 ML IVPB IV SCH ×6 (06:29→21:49)
[2016-09-19] MEDS: FUROSEMIDE 40 MG/4 ML INJ (LASIX) IV SCH (06:29)
[2016-09-19 06:41] LABS: ALANINE AMINOTRANSFERASE 37 U/L (0-55); ALBUMIN 1.9 GM/DL (3.2-4.5); ANION GAP 7 MMOL/L (5-14); ASPARTATE AMINO TRANSFERASE 104 U/L (5-34); BLOOD UREA NITROGEN 10 MG/DL (7-18); BUN/CREATININE RATIO 11; CALCIUM 7.8 MG/DL (8.5-10.1); CARBON DIOXIDE 24 MMOL/L (21-32); CHLORIDE 94 MMOL/L (98-107); CREATININE SERUM 0.92 MG/DL (0.60-1.30); GFR ESTIMATED > 60; GLUCOSE 89 MG/DL (70-105); MAGNESIUM 1.2 MG/DL (1.8-2.4); PHOSPHORUS 3.7 MG/DL (2.3-4.7); POTASSIUM 3.8 MMOL/L (3.6-5.0); TOTAL PROTEIN 6.4 GM/DL (6.4-8.2)
[2016-09-19 06:43] LABS: SODIUM 125 MMOL/L (135-145)
--- NOTE | 2016-09-19 09:13 | Physical Therapy Daily Note ---
PT Daily Note-Current Subjective Pt. and GF present. Pt in bed. Resistant to getting up but does with encouragement. As soon as he is in chair he states he wants back in bed. Pts. GF states he has been incont of b&b Pain Numeric Pain Scale: 5-Moderate Pain Location: Medial Location Body Site: Head Pain Description: Ache Mental Status Patient Orientation: Confused Attachments: IV Transfers Functional [place] Measure 0=Not Assessed/NA 4=Minimal Assistance 1=Total Assistance 5=Supervision or Setup 2=Maximal Assistance 6=Modified [place] 3=Moderate Assistance 7=Complete IndependenceIRFPAI Quality Coding Scale 6 Independent with activity with or without an assistive device 5 Patient requires set up or clean up by helper. Patient completes activity by themselves 4 Supervision or touching assist (CGA). [place] provide cues , steadying assist 3 The helper provides less than half the effort to complete the activity 2 The helper provides more than half the effort to complete the activity 1 Dependent. The helper does all the effort to complete an activity 7 Patient refused to complete or attempt activity 9 The patient did not perform the activity before the current illness or injury 88 Not attempted due to Medical conditions or safety concerns Transfers (B, C, W/C) (FIM): 4 in out bed with min assist . pt. incont urine , this OUTSOLE ROUNDER applied brief Gait Training Gait (FIM): 2 Gait Assistive Device: FWW gait 50 ft x1 min assist and instruction re: use of FWW every step Exercises Supine Ex: Bridging, Ankle pumps, Rolling, Heel Slides, Straight leg raise, Hip abd/add Supine Reps: 12 Seated Therapy Exercises: Long arc quads Seated Reps: 12 Treatments alarm applied to chair, pt. in chair with alarm insitu Assessment Current Status: Good Progress PT Longterm Goals Capacitor Pack Press Operator Goals PT Longterm Goals Time Frame: Sep 24, 2016 Transfers (B,C,W/C) (FIM): 4 Gait (FIM): 4 Distance: 150' Gait Level of Assist: 4 Gait Assistive Device: FWW PT Plan Treatment/Plan Treatment Plan: Continue Plan of Care Treatment Plan: Bed Mobility, Education, Functional Activity Karen, Functional Strength, Gait, Safety, Therapeutic Exercise, Transfers Treatment Duration: Sep 24, 2016 Frequency: 6 times per week Estimated Hrs Per Day: .25 hour per day (15-30 min a day) Patient and/or Family Agrees t: Yes Safety Risks/Education Patient Education: Gait Training, Transfer Techniques Teaching Recipient: Patient Teaching Methods: Demonstration, Discussion Response to Teaching: Verbalize Understanding, Unable to Comprehend, Reinforcement Needed Time/GCodes Time In: 815 Time Out: 850 Total Billed Treatment Time: 35 Total Billed Treatment 1,FA35m G Codes Necessary: BK Niño OUTSOLE ROUNDER Sep 19, 2016 09:13
[2016-09-19] MEDS: PROPRANOLOL LA 120 MG (INDERAL LA) CAP NON-FORMULARY PO SCH ×2 (10:00→20:08)
[2016-09-19] MEDS: FOLIC ACID 1 MG TAB PO SCH (10:00)
[2016-09-19] MEDS: SPIRONOLACTONE 100 MG (ALDACTONE) TABLET PO SCH (10:00)
--- NOTE | 2016-09-19 12:02 | Progress Note-Hospitalist ---
Progress Note Progress Notes/Assess & Plan Date Seen 09/19/16 Time Seen by Provider: 10:45 Diagonsis/Assessment & Plan Patient doing much better and responding more appropriately more rapidly than very slowed response before Has Adi palmer and because he pulled out his IV Will start lactulose and sodium level is now 125 and will help encephalopathy and confusion Getting up with physical therapy with walker ordinarily doesn't require a walker at home He does smoke and I did note wheezing today so we'll initiate incentive spirometer and nebulizer treatments I will place on fluid restriction to help with sodium level in addition maintaining the normal saline at 50 mL an hour We'll check labs in morning including ammonia and check ammonia on labs today No fever, vital signs stable, pleasant, improved, flat affect, slowed response Regular rate and rhythm, wheezing all estevez but very subtle but no tachypnea no cough No edema Laboratory Tests 09/18/16 16:34 09/19/16 06:00 Assessment: End-stage liver disease due to hepatitis C and alcoholism Hepatic encephalopathy with elevated ammonia Severe hyponatremia admitted with sodium level of 108 Smoker with wheezing on exam today ordered nebulizer treatments and incentive spirometer Anemia of chronic illness [place] cytopenia due to liver disease Headache will order ibuprofen very low dose Presumed esophageal varices Hypertension Plan: Lactulose Low-dose ibuprofen Fluid restriction Nebulizer treatments Incentive spirometer Out of bed with physical therapy [place] palmer Fall risk Check ammonia today and tomorrow GILBERTO CAPUTO DO Sep 19, 2016 12:02
[2016-09-19] MEDS: NS IV 1000 ML 1,000 ML IV SCH (13:56)
[2016-09-19] MEDS: LACTULOSE SYRUP 10GM/15ML (ENULOSE) 30ML UDC PO SCH ×2 (14:00→20:08)
[2016-09-19] MEDS: IBUPROFEN TABLET 200 MG TAB PO PRN (14:30)
[2016-09-19] MEDS: RT-ALBUTEROL/IPRATROPIUM 3 ML (DUONEB) VIAL INH SCH ×2 (15:11→22:03)
[2016-09-19] MEDS: ALFUZOSIN HCL 10 MG TAB (UROXATRAL) PO SCH (17:12)
[2016-09-20 05:00] VITALS: BP 137/79
[2016-09-20 05:39] LABS: BASOPHILS # (AUTO) 0.2 10^3/uL (0.0-0.1); BASOPHILS % (AUTO) 4 % (0-10); EOSINOPHILS # (AUTO) 0.2 10^3/uL (0.0-0.3); EOSINOPHILS % (AUTO) 5 % (0-10); LYMPHOCYTES # (AUTO) 0.9 X 10^3 (1.0-4.0); LYMPHOCYTES % (AUTO) 20 % (12-44); MEAN CORPUSCULAR HEMOGLOBIN 35 PG (25-34); MEAN CORPUSCULAR HGB CONC 36 G/DL (32-36); MEAN CORPUSCULAR VOLUME 97 FL (80-99); MONOCYTES # (AUTO) 0.9 X 10^3 (0.0-1.0); MONOCYTES % (AUTO) 19 % (0-12); NEUTROPHILS # (AUTO) 2.3 X 10^3 (1.8-7.8); NEUTROPHILS % (AUTO) 52 % (42-75); PLATELET COUNT 81 10^3/uL (130-400); RED CELL DISTRIBUTION WIDTH 18.5 % (10.0-14.5); WHITE BLOOD COUNT 4.4 10^3/uL (4.3-11.0)
[2016-09-20] MEDS: PIPERACILLIN/TAZOBACTAM 4.5 GM/NS100 ML IVPB IV SCH ×6 (05:46→22:11)
[2016-09-20 06:00] LABS: INR 1.9 (0.8-1.4); PROTHROMBIN TIME PATIENT 21.2 SEC (12.2-14.7)
[2016-09-20 06:18] LABS: ALANINE AMINOTRANSFERASE 42 U/L (0-55); AMMONIA 44 UMOL/L (11-32); ANION GAP 12 MMOL/L (5-14); ASPARTATE AMINO TRANSFERASE 112 U/L (5-34); BILIRUBIN,TOTAL 9.5 MG/DL (0.1-1.0); BLOOD UREA NITROGEN 10 MG/DL (7-18); BUN/CREATININE RATIO 11; CALCIUM 7.6 MG/DL (8.5-10.1); CARBON DIOXIDE 21 MMOL/L (21-32); CHLORIDE 93 MMOL/L (98-107); CREATININE SERUM 0.91 MG/DL (0.60-1.30); GFR ESTIMATED > 60; GLUCOSE 102 MG/DL (70-105); PHOSPHORUS 3.4 MG/DL (2.3-4.7); POTASSIUM 3.6 MMOL/L (3.6-5.0); SODIUM 126 MMOL/L (135-145); TOTAL PROTEIN 6.2 GM/DL (6.4-8.2)
[2016-09-20] MEDS: FUROSEMIDE 40 MG/4 ML INJ (LASIX) IV SCH (06:29)
[2016-09-20] MEDS: PANTOPRAZOLE 40 MG (PROTONIX) TAB PO SCH (06:29)
[2016-09-20] MEDS: THIAMINE 100 MG (VITAMIN B-1) TAB PO SCH (06:29)
[2016-09-20] MEDS: RT-ALBUTEROL/IPRATROPIUM 3 ML (DUONEB) VIAL INH SCH ×3 (07:23→19:18)
[2016-09-20] MEDS: MAGNESIUM 1 GM/100 ML IVPB 100 ML IV SCH ×2 (07:59→08:03)
[2016-09-20] MEDS: NS IV 1000 ML 1,000 ML IV SCH ×2 (08:02→22:14)
[2016-09-20] MEDS: SPIRONOLACTONE 100 MG (ALDACTONE) TABLET PO SCH (08:17)
[2016-09-20] MEDS: LACTULOSE SYRUP 10GM/15ML (ENULOSE) 30ML UDC PO SCH ×2 (08:17→20:26)
[2016-09-20] MEDS: FOLIC ACID 1 MG TAB PO SCH (08:17)
[2016-09-20 08:40] VITALS: BP 147/58
[2016-09-20] MEDS: PROPRANOLOL LA 120 MG (INDERAL LA) CAP NON-FORMULARY PO SCH ×2 (10:57→20:27)
--- NOTE | 2016-09-20 11:57 | Progress Note-Hospitalist ---
Progress Note Progress Notes/Assess & Plan Date Seen 09/20/16 Time Seen by Provider: 10:00 Diagonsis/Assessment & Plan Patient doing much better and thought process is much improved Loose stools from Lactulose noted but that is helping the encephalopathy a great deal now He does smoke and I did note wheezing yesterday so we will continue incentive spirometer and nebulizer treatments I will maintain on fluid restriction to help with sodium level in addition maintaining the normal saline at 50 mL an hour Will check labs in morning including ammonia SW consult for disposition tomorrow No fever, vital signs stable, pleasant, improved, flat affect, normal conversation Regular rate and rhythm, wheezing improved No edema Laboratory Tests 09/20/16 05:20 Assessment: End-stage liver disease due to hepatitis C and alcoholism Hepatic encephalopathy with elevated ammonia now placed on Lactulose and it is improving status Severe hyponatremia admitted with sodium level of 108 now improved at 126 on fluid restriction and gentle IVF NS 50/hr Smoker with wheezing on exam yesterday ordered nebulizer treatments and incentive spirometer now improved Anemia of chronic illness Thrombocytopenia due to liver disease Headache will order ibuprofen very low dose Presumed esophageal varices Hypertension Plan: Lactulose Low-dose ibuprofen Fluid restriction Nebulizer treatments Incentive spirometer Out of bed with physical therapy Fall risk Check ammonia tomorrow GILBERTO CAPUTO DO Sep 20, 2016 11:57
[2016-09-20 12:00] VITALS: BP 152/73
[2016-09-20] MEDS ORDERED: PATIENT MAY USE OWN MED,SINGLE MED PO SCH (13:00)
[2016-09-20 16:00] VITALS: BP 136/78
[2016-09-20] MEDS: ALFUZOSIN HCL 10 MG TAB (UROXATRAL) PO SCH (18:59)
[2016-09-20 20:00] VITALS: BP 121/66
[2016-09-20 23:45] VITALS: BP 136/77
[2016-09-21 04:20] VITALS: BP 122/77
[2016-09-21] MEDS: PIPERACILLIN/TAZOBACTAM 4.5 GM/NS100 ML IVPB IV SCH ×2 (05:27)
[2016-09-21] MEDS: IBUPROFEN TABLET 200 MG TAB PO PRN (05:31)
[2016-09-21 05:43] LABS: BASOPHILS # (AUTO) 0.2 10^3/uL (0.0-0.1); BASOPHILS % (AUTO) 3 % (0-10); EOSINOPHILS # (AUTO) 0.3 10^3/uL (0.0-0.3); EOSINOPHILS % (AUTO) 4 % (0-10); LYMPHOCYTES % (AUTO) 18 % (12-44); MEAN CORPUSCULAR HEMOGLOBIN 35 PG (25-34); MEAN CORPUSCULAR HGB CONC 36 G/DL (32-36); MEAN CORPUSCULAR VOLUME 97 FL (80-99); MEAN PLATELET VOLUME 10.7 FL (7.4-10.4); MONOCYTES % (AUTO) 17 % (0-12); NEUTROPHILS # (AUTO) 3.5 X 10^3 (1.8-7.8); NEUTROPHILS % (AUTO) 58 % (42-75); PLATELET COUNT 74 10^3/uL (130-400); RED BLOOD COUNT 2.72 10^6/uL (4.35-5.85); RED CELL DISTRIBUTION WIDTH 18.6 % (10.0-14.5); WHITE BLOOD COUNT 5.9 10^3/uL (4.3-11.0)
[2016-09-21 05:57] LABS: INR 1.8 (0.8-1.4); PROTHROMBIN TIME PATIENT 20.7 SEC (12.2-14.7)
[2016-09-21 06:08] LABS: ALANINE AMINOTRANSFERASE 46 U/L (0-55); AMMONIA 38 UMOL/L (11-32); ANION GAP 9 MMOL/L (5-14); ASPARTATE AMINO TRANSFERASE 127 U/L (5-34); BILIRUBIN,TOTAL 10.1 MG/DL (0.1-1.0); BLOOD UREA NITROGEN 11 MG/DL (7-18); BUN/CREATININE RATIO 10; CALCIUM 7.8 MG/DL (8.5-10.1); CARBON DIOXIDE 24 MMOL/L (21-32); CHLORIDE 92 MMOL/L (98-107); CREATININE SERUM 1.07 MG/DL (0.60-1.30); GFR ESTIMATED > 60; GLUCOSE 105 MG/DL (70-105); MAGNESIUM 1.3 MG/DL (1.8-2.4); PHOSPHORUS 3.2 MG/DL (2.3-4.7); POTASSIUM 3.6 MMOL/L (3.6-5.0); TOTAL PROTEIN 6.6 GM/DL (6.4-8.2)
[2016-09-21 06:14] LABS: SODIUM 125 MMOL/L (135-145)
[2016-09-21] MEDS: FUROSEMIDE 40 MG/4 ML INJ (LASIX) IV SCH (06:14)
[2016-09-21] MEDS: PANTOPRAZOLE 40 MG (PROTONIX) TAB PO SCH (06:14)
--- NOTE | 2016-09-21 07:04 | Pulmonary Progress Note ---
Subjective Time Seen by Provider: 07:03 Subjective/Events-last exam PT appears much improved currently. Exam Exam Vital Signs Date Time Temp Pulse Resp B/P (MAP) Pulse Ox O2 Delivery O2 Flow Rate FiO2 09/21/16 04:20 97.7 64 20 122/77 99 Room Air 09/21/16 01:00 61 09/20/16 23:45 97.8 80 136/77 97 09/20/16 20:00 Room Air 09/20/16 20:00 98.0 69 20 121/66 97 Room Air 09/20/16 19:18 96 Room Air 09/20/16 19:00 63 09/20/16 16:00 97.5 63 20 136/78 98 Room Air 09/20/16 13:00 61 09/20/16 12:00 97.5 64 18 152/73 98 Room Air 09/20/16 08:40 97.9 65 20 147/58 99 Room Air 09/20/16 07:50 Room Air 09/20/16 07:23 98 Room Air I & O 09/21/16 07:00 Intake Total 3270 ml Output Total 1325 ml Balance 1945 ml General Appearance: No Apparent Distress, Chronically ill HEENT: TMs Normal, Pharynx Normal Neck: Normal Inspection, Non Tender, Supple Respiratory: Chest Non Tender, Lungs Clear, Normal Breath Sounds, Other (dry cough) Cardiovascular: Regular Rate, Rhythm, No No Edema, No JVD, Normal Peripheral Pulses Capillary Refill: Less Than 3 Seconds Gastrointestinal: normal bowel sounds, non tender, soft, no pulsatile mass, distended, No guarding, No rebound, No tenderness, spleenomegaly, other (No ascites or fluid shift present) Extremity: Normal Capillary Refill, Non Tender, No Calf Tenderness Neurologic/Psychiatric: Alert, Oriented x3, No Motor/Sensory Deficits, hospitality aide II- XII Norm as Tested, Other (flat affect) Results Lab Laboratory Tests 09/20/16 05:20 09/21/16 05:34 Assessment/Plan Assessment/Plan 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
[2016-09-21 08:00] VITALS: BP 109/68
[2016-09-21] MEDS: RT-ALBUTEROL/IPRATROPIUM 3 ML (DUONEB) VIAL INH SCH (08:19)
[2016-09-21] MEDS: LACTULOSE SYRUP 10GM/15ML (ENULOSE) 30ML UDC PO SCH (08:49)
[2016-09-21] MEDS: PROPRANOLOL LA 120 MG (INDERAL LA) CAP NON-FORMULARY PO SCH (08:50)
[2016-09-21] MEDS: SPIRONOLACTONE 100 MG (ALDACTONE) TABLET PO SCH (08:50)
--- NOTE | 2016-09-21 09:37 | Discharge Summary-Hospitalist ---
Diagnosis/Chief Complaint Date of Admission Sep 16, 2016 at 00:25 Date of Discharge Discharge Diagnosis Patient doing much better and thought process is much improved Loose stools from Lactulose noted but that is helping the encephalopathy a great deal now He does smoke and I did note wheezing yesterday so we will continue incentive spirometer and nebulizer treatments I will maintain on fluid restriction to help with sodium level in addition maintaining the normal saline at 50 mL an hour Will check labs in morning including ammonia SW consult for disposition tomorrow No fever, vital signs stable, pleasant, improved, flat affect, normal conversation Regular rate and rhythm, wheezing improved No edema Laboratory Tests 09/20/16 05:20 Assessment: End-stage liver disease due to hepatitis C and alcoholism Hepatic encephalopathy with elevated ammonia now placed on Lactulose and it is improving status Severe hyponatremia admitted with sodium level of 108 now improved at 126 on fluid restriction and gentle IVF NS 50/hr Smoker with wheezing on exam yesterday ordered nebulizer treatments and incentive spirometer now improved Anemia of chronic illness Thrombocytopenia due to liver disease Headache will order ibuprofen very low dose Presumed esophageal varices Hypertension Plan: Lactulose Low-dose ibuprofen Fluid restriction Nebulizer treatments Incentive spirometer Out of bed with physical therapy Fall risk Check ammonia tomorrow Reason Hospital Visit/Course Hospital course: patient had a lengthy hospital course due to severe hyponatremia and liver disease induced encephalopathy. NS was initiated along with empiric abx for UTI and sodium level improved from 108 to level of 125 at day of DC. Meds were modified to help ascites and elevated ammonia level. Lactulose was tolerated BID inducing multiple loose stools per day. Walker order was given and close f/u at [facility] this week was obtained but very poor prognosis given fact of young age and end-stage liver disease. Discharge Summary Discharge Physical Examination Allergies: Coded Allergies: No Known Drug Allergies (Unverified , 03/18/13) Vitals & I&Os Vital Signs Date Time Temp Pulse Resp B/P (MAP) Pulse Ox O2 Delivery O2 Flow Rate FiO2 09/21/16 12:00 99.1 67 20 140/73 98 Room Air Hospital Course Labs (last 24 hrs) Laboratory Tests 09/21/16 05:34: White Blood Count 5.9, Red Blood Count 2.72L, Hemoglobin 9.6L, Hematocrit 27L, Mean Corpuscular Volume 97, Mean Corpuscular Hemoglobin 35H, Mean Corpuscular Hemoglobin Concent 36, Red Cell Distribution Width 18.6H, Platelet Count 74L, Mean Platelet Volume 10.7H, Neutrophils (%) (Auto) 58, Lymphocytes (%) (Auto) 18 , Monocytes (%) (Auto) 17H, Eosinophils (%) (Auto) 4, Basophils (%) (Auto) 3, Neutrophils # (Auto) 3.5, Lymphocytes # (Auto) 1.0, Monocytes # (Auto) 1.0, Eosinophils # (Auto) 0.3, Basophils # (Auto) 0.2H, Prothrombin Time 20.7H, INR Comment 1.8H, Sodium Level 125*L, Potassium Level 3.6, Chloride Level 92L, Carbon Dioxide Level 24, Anion Gap 9, Blood Urea Nitrogen 11, Creatinine 1.07, Estimat Glomerular Filtration Rate > 60, BUN/Creatinine Ratio 10, Glucose Level 105, Calcium Level 7.8L, Phosphorus Level 3.2, Magnesium Level 1.3L, Total Bilirubin 10.1H, Aspartate Amino Transf (AST/SGOT) 127H, Alanine Aminotransferase (ALT/SGPT) 46, Alkaline Phosphatase 138H, Ammonia 38H, Total Protein 6.6, Albumin 2.0L Microbiology 09/15/16 Blood Culture - Preliminary, Resulted No growth 09/15/16 Urine Culture - Final, Complete Pending Labs Laboratory Tests 09/21/16 05:34: White Blood Count 5.9, Red Blood Count 2.72, Hemoglobin 9.6, Hematocrit 27, Mean Corpuscular Volume 97, Mean Corpuscular Hemoglobin 35, Mean Corpuscular Hemoglobin Concent 36, Red Cell Distribution Width 18.6, Platelet Count 74, Mean Platelet Volume 10.7, Neutrophils (%) (Auto) 58, Lymphocytes (%) (Auto) 18 , Monocytes (%) (Auto) 17, Eosinophils (%) (Auto) 4, Basophils (%) (Auto) 3, Neutrophils # (Auto) 3.5, Lymphocytes # (Auto) 1.0, Monocytes # (Auto) 1.0, Eosinophils # (Auto) 0.3, Basophils # (Auto) 0.2, Prothrombin Time 20.7, INR Comment 1.8, Sodium Level 125, Potassium Level 3.6, Chloride Level 92, Carbon Dioxide Level 24, Anion Gap 9, Blood Urea Nitrogen 11, Creatinine 1.07, Estimat Glomerular Filtration Rate > 60, BUN/Creatinine Ratio 10, Glucose Level 105, Calcium Level 7.8, Phosphorus Level 3.2, Magnesium Level 1.3, Total Bilirubin 10.1, Aspartate Amino Transf (AST/SGOT) 127, Alanine Aminotransferase (ALT/SGPT ) 46, Alkaline Phosphatase 138, Ammonia 38, Total Protein 6.6, Albumin 2.0 Discharge Home Medications: Active Scripts Active Lactulose 20 Gm/30 Ml Solution 10 Gm PO BID Spironolactone 100 Mg Tablet 100 Mg PO DAILY Alfuzosin HCl ER (Alfuzosin HCl) 10 Mg Tab.er.24h 10 Mg PO DAILY@1800 Reported Propranolol HCl ER (Propranolol HCl) 120 Mg Cap.sa.24h 120 Mg PO BID Torsemide 10 Mg Tablet 10 Mg PO DAILY Levothyroxine Sodium 25 Mcg Tablet 25 Mcg PO DAILY Meloxicam 7.5 Mg Tablet 7.5 Mg PO DAILY Viagra (Sildenafil Citrate) 50 Mg Tablet 50 Mg PO DAILY PRN Omeprazole 40 Mg Capsule.dr 40 Mg PO DAILY Instructions to patient/family Please see electonic discharge instructions given to patient. Clinical Quality Measures DVT/VTE Risk/Contraindication: Risk Factor Score Per Nursin RFS Level Per Nursing on Admit: 2=Moderate GILBERTO CAPUTO DO Sep 21, 2016 09:37
[2016-09-21] MEDS ORDERED: ALFU10TA11 PO (09:40)
[2016-09-21] MEDS ORDERED: SPIR100T2 PO (09:40)
[2016-09-21] MEDS ORDERED: LACT20SO2 PO (09:40)
[2016-09-21 11:58] VITALS: BP 109/68
[2016-09-21 12:00] VITALS: BP 140/73
== END 2016-09-21 11:58 | disposition home or self-care (01) | DRG 433 ==
LOC: EDUNIT# 22:54 → ER 22:56 → ICU 09-16 00:25 → 4TH 09-18 10:15
PROVIDERS: ADMIT Family Medicine; ATTEND Family Medicine
DX: K70.40 Alcoholic hepatic failure without coma (principal); E87.1 Hypo-osmolality and hyponatremia; K76.6 Portal hypertension; F10.288 Alcohol dependence with other alcohol-induced disorder; N39.0 Urinary tract infection, site not specified; E87.2 Acidosis; I85.10 Secondary esophageal varices without bleeding; R53.1 Weakness; B18.2 Chronic viral hepatitis C; D69.6 Thrombocytopenia, unspecified; D63.8 Anemia in other chronic diseases classified elsewhere; I10 Essential (primary) hypertension; E03.9 Hypothyroidism, unspecified; F17.210 Nicotine dependence, cigarettes, uncomplicated
CPT/HCPCS: 36415; 71010; 76705; 80048; 80053; 80074; 80202; 80306; 80320; 81000; 82140; 83605; 83735; 83935; 84100; 84439; 84443; 84484; 85007; 85025; 85027; 85610; 85730; 86141; 86703; 87040; 87088; 94640; 94664; 94760; 96361; 96365; 96367; 96368; 96375

== ENCOUNTER 2016-11-17 20:43 | Inpatient (IN) | payer OTHER ==
[~2016-11-17] VITALS: Ht 185.4 cm; Wt 108.9 kg
[~2016-11-17 20:43] MED LIST changes: +ALFU10TA11 PO; +LACT20SO2 PO; +LEVO25TA5 PO; +LOSA100T28 PO; +MELO7.5T46 PO; +POTA10TA10 PO; +PROP120C3 PO; +SPIR100T2 PO; +TORS10TA5 PO
--- OUTSIDE RECORDS SUMMARY | 2016-11-17 20:48 | XMS REPORT ---
Author Author KIT BOSTON [facility] Address [address] [place] [address] Care Team Providers Care Powerhouse Oiler Name Role Phone KIT BOSTON Unavailable PROBLEMS Type Condition ICD9-CM Code [id number] Code Onset Dates Condition Status SNOMED Code Problem Acquired hypothyroidism E03.9 Active 230750968 Problem Right hip pain M25.551 Active 392016441306913 Problem Erectile dysfunction N52.9 Active 648626806 Problem Other seasonal allergic rhinitis J30.2 Active 525668624 Problem Edema R60.9 Active 417252470 Problem Right anterior knee pain M25.561 Active 729327188 Problem PAD (peripheral artery disease) I73.9 Active 856320656 Problem Arthritis M19.90 Active 7087356 Problem Primary osteoarthritis of right hip M16.11 Active 843050814 Problem Mild episode of recurrent major depressive disorder F33.0 Active 693920876 Problem Alcohol abuse with alcohol-induced mood disorder F10.14 Active 78761233 Problem 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 Active 745943034 Problem Essential hypertension I10 Active 15307376 Problem Discoloration of skin L81.9 Active 3171039 Problem Peripheral edema R60.9 Active 877692030 Problem Heartburn R12 Active 06383931 Problem Abnormal glucose R73.09 Active 999498988 Problem Hyponatremia E87.1 Active 36857220 Problem BPH (benign prostatic hyperplasia) N40.0 Active 490299417 Problem Chest pain, unspecified chest pain type R07.9 Active 20379666 Problem Hypomagnesemia E83.42 Active 958940985 Problem Frequent headaches R51 Active 596867714 Problem Alcoholism F10.20 Active 0354587 Problem Foot pain M79.673 Active 01250008 Problem Chronic hepatitis C without hepatic coma B18.2 Active 955559890 ALLERGIES Substance Reaction Event Type Date Status N.K.D.A. Unknown Non Drug Allergy Mar, Unknown SOCIAL HISTORY No smoking Hx information available PLAN OF CARE Activity Details Follow Up 3 Months or pending lab Reason:BP/Swelling thyroid VITAL SIGNS Height 76 in 2016-03-24 Weight 231.4 lbs 2016-03-24 Temperature 97.7 degrees Fahrenheit 2016-03-24 Heart Rate 77 bpm 2016-03-24 Respiratory Rate 20 2016-03-24 BMI 28.16 kg/m2 2016-03-24 Blood pressure systolic 132 mmHg 2016-03-24 Blood pressure diastolic 84 mmHg 2016-03-24 MEDICATIONS Medication Instructions Dosage Frequency Start Date End Date Duration Status Propranolol HCl CR 120mg Orally twice a day 1 capsule 12h Active Losartan Potassium 100 MG Orally Once a day 1 tablet 24h Active Omeprazole 40 mg Orally Once a day 1 capsule 24h 90 Active Tamsulosin HCl 0.4 MG Orally Once a day 1 capsule 24h Active Meloxicam 7.5 MG Orally Once a day 1 tablet 24h Active Magnesium 250 MG Orally once daily with meal 1 tablet Active Torsemide 10 mg Orally Once a day 1 tablet 24h Active Levothyroxine Sodium 25 MCG Orally Once a day 1 tablet on an empty stomach in the morning 24h Jan, Active Viagra 50 MG TAKE ONE TABLET BY MOUTH ONE TIME PER DAY NEEDED (PROGRAM LIMITS 10 TABLETS PER 30 DAYS) 5 Active Potassium Chloride 10 MEQ Orally Twice a day 1 capsule 12h Active RESULTS Name Result Date Reference Range MAGNESIUM, SERUM 2016-03-24 Magnesium, Serum 1.2 1.6-2.3 CMP 2016-03-24 Glucose, Serum 86 65-99 BUN 8 6-24 Creatinine, Serum 0.98 0.76-1.27 eGFR If NonAfricn Am 87 >59 eGFR If Africn Am 101 >59 BUN/Creatinine Ratio 8 9-20 Sodium, Serum 127 134-144 Potassium, Serum 4.4 3.5-5.2 Chloride, Serum 87 96-106 Carbon Dioxide, Total 21 18-29 Calcium, Serum 8.6 8.7-10.2 Protein, Total, Serum 8.7 6.0-8.5 Albumin, Serum 3.3 3.5-5.5 Globulin, Total 5.4 1.5-4.5 A/G Ratio 0.6 1.1-2.5 Bilirubin, Total 4.0 0.0-1.2 Alkaline Phosphatase, S 152 39-117 AST (SGOT) 87 0-40 ALT (SGPT) 26 0-44 PROCEDURES Procedure Date Ordered Related Diagnosis [facility], 2016 VENIPUNCT, ROUTINE* Mar 24, 2016 Office Visit, Est Pt., Level 5 Mar 24, 2016 IMMUNIZATIONS No Known Immunizations
--- OUTSIDE RECORDS SUMMARY | 2016-11-17 20:49 | XMS REPORT ---
Author Author KIT BOSTON [facility] Address [address] [place] [address] Care Team Providers Care Cardiothoracic Icu Rn Name Role Phone KIT BOSTON Unavailable PROBLEMS Type Condition ICD9-CM Code [id number] Code Onset Dates Condition Status SNOMED Code Problem Acquired hypothyroidism E03.9 Active 988155717 Problem Right hip pain M25.551 Active 462468178138437 Problem Erectile dysfunction N52.9 Active 408204455 Problem Other seasonal allergic rhinitis J30.2 Active 960636043 Problem Edema R60.9 Active 971461340 Problem Right anterior knee pain M25.561 Active 627639672 Problem PAD (peripheral artery disease) I73.9 Active 145417617 Problem Arthritis M19.90 Active 3846133 Problem Primary osteoarthritis of right hip M16.11 Active 843040767 Problem Mild episode of recurrent major depressive disorder F33.0 Active 706716275 Problem Alcohol abuse with alcohol-induced mood disorder F10.14 Active 28475991 Problem 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 Active 793248947 Problem Essential hypertension I10 Active 84783967 Problem Discoloration of skin L81.9 Active 0673915 Problem Peripheral edema R60.9 Active 199947754 Problem Heartburn R12 Active 23593943 Problem Abnormal glucose R73.09 Active 819547587 Problem Hyponatremia E87.1 Active 74467928 Problem BPH (benign prostatic hyperplasia) N40.0 Active 440580063 Problem Chest pain, unspecified chest pain type R07.9 Active 77479667 Problem Hypomagnesemia E83.42 Active 835055345 Problem Frequent headaches R51 Active 347578553 Problem Alcoholism F10.20 Active 1752813 Problem Foot pain M79.673 Active 16907572 Problem Chronic hepatitis C without hepatic coma B18.2 Active 301855472 ALLERGIES Unknown Allergies SOCIAL HISTORY No smoking Hx information available PLAN OF CARE VITAL SIGNS MEDICATIONS Unknown Medications RESULTS No Results PROCEDURES No Known procedures IMMUNIZATIONS No Known Immunizations
--- OUTSIDE RECORDS SUMMARY | 2016-11-17 20:50 | XMS REPORT ---
Author Author KIT BOSTON [facility] Address [address] [place] [address] Care Team Providers Care Scientist Propagator Name Role Phone KIT BOSTON Unavailable PROBLEMS Type Condition ICD9-CM Code [id number] Code Onset Dates Condition Status SNOMED Code Problem Acquired hypothyroidism E03.9 Active 046729046 Problem Right hip pain M25.551 Active 486525259587009 Problem Erectile dysfunction N52.9 Active 609308934 Problem Other seasonal allergic rhinitis J30.2 Active 790647209 Problem Edema R60.9 Active 504857900 Problem Right anterior knee pain M25.561 Active 303164036 Problem PAD (peripheral artery disease) I73.9 Active 598964116 Problem Arthritis M19.90 Active 0270072 Problem Primary osteoarthritis of right hip M16.11 Active 132905250 Problem Mild episode of recurrent major depressive disorder F33.0 Active 605645247 Problem Alcohol abuse with alcohol-induced mood disorder F10.14 Active Problem 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 Active 168732266 Problem Essential hypertension I10 Active 12245651 Problem Abnormal glucose R73.09 Active 499675366 Problem Peripheral edema R60.9 Active 107419908 Problem Heartburn R12 Active 45137216 Problem Discoloration of skin L81.9 Active 5644804 Problem Hyponatremia E87.1 Active 88425064 Problem BPH (benign prostatic hyperplasia) N40.0 Active 381936985 Problem Chest pain, unspecified chest pain type R07.9 Active 12927623 Problem Hypomagnesemia E83.42 Active 503601342 Problem Frequent headaches R51 Active 987792618 Problem Chronic hepatitis C without hepatic coma B18.2 Active 332445887 Problem Foot pain M79.673 Active 75509886 Problem Alcoholism F10.20 Active 8338908 ALLERGIES Substance Reaction Event Type Date Status N.K.D.A. Unknown Non Drug Allergy Jan, Unknown SOCIAL HISTORY No smoking Hx information available PLAN OF CARE Activity Details Follow Up 2 Months Reason:HTN/Swelling VITAL SIGNS Height 76 in 2016-01-30 Weight 249.0 lbs 2016-01-30 Temperature 98.0 degrees Fahrenheit 2016-01-30 BMI 30.31 kg/m2 2016-01-30 Blood pressure systolic 136 mmHg 2016-01-30 Blood pressure diastolic 80 mmHg 2016-01-30 MEDICATIONS Medication Instructions Dosage Frequency Start Date End Date Duration Status Tamsulosin HCl 0.4 MG Orally Once a day 1 capsule 24h Active Potassium Chloride 10 MEQ Orally Twice a day 1 capsule 12h Active Torsemide 10 mg Orally Once a day 1 tablet 24h Active Losartan Potassium 100 MG Orally Once a day 1 tablet 24h Active Viagra 50 MG TAKE ONE TABLET BY MOUTH ONE TIME PER DAY NEEDED (PROGRAM LIMITS 10 TABLETS PER 30 DAYS) 30 Active Meloxicam 7.5 MG Orally Once a day 1 tablet 24h Active Magnesium 250 MG Orally once daily with meal 1 tablet Active Omeprazole 40 mg Orally Once a day 1 capsule 24h 90 Active Propranolol HCl CR 120mg Orally twice a day 1 capsule 12h Active RESULTS Name Result Date Reference Range MAGNESIUM, SERUM 2016-01-30 Magnesium, Serum 1.4 1.6-2.3 TSH 2016-01-30 TSH 6.250 0.450-4.500 CMP 2016-01-30 Glucose, Serum 98 65-99 BUN 4 6-24 Creatinine, Serum 0.96 0.76-1.27 eGFR If NonAfricn Am 89 >59 eGFR If Africn Am 103 >59 BUN/Creatinine Ratio 4 9-20 Sodium, Serum 127 136-144 Potassium, Serum 4.3 3.5-5.2 Chloride, Serum 89 97-106 Carbon Dioxide, Total 21 18-29 Calcium, Serum 8.3 8.7-10.2 Protein, Total, Serum 8.4 6.0-8.5 Albumin, Serum 3.2 3.5-5.5 Globulin, Total 5.2 1.5-4.5 A/G Ratio 0.6 1.1-2.5 Bilirubin, Total 4.9 0.0-1.2 Alkaline Phosphatase, S 157 39-117 AST (SGOT) 98 0-40 ALT (SGPT) 24 0-44 PROCEDURES Procedure Date Ordered Related Diagnosis Body Site LAB NOT BILLED BY [facility] Jan 30, 2016 Office Visit, Est Pt., Level 4 Jan 30, 2016 VENIPUNCT, ROUTINE* Jan 30, 2016 IMMUNIZATIONS No Known Immunizations
--- OUTSIDE RECORDS SUMMARY | 2016-11-17 20:50 | XMS REPORT ---
Author Author KIT BOSTON [facility] Address [address] [place] [address] Care Team Providers Care Shellfish Processing Laborer Name Role Phone KIT BOSTON Unavailable PROBLEMS Type Condition ICD9-CM Code [id number] Code Onset Dates Condition Status SNOMED Code Problem Acquired hypothyroidism E03.9 Active 200269302 Problem Right hip pain M25.551 Active 150160090021919 Problem Erectile dysfunction N52.9 Active 521428575 Problem Other seasonal allergic rhinitis J30.2 Active 529663381 Problem Edema R60.9 Active 083946331 Problem Right anterior knee pain M25.561 Active 713063513 Problem PAD (peripheral artery disease) I73.9 Active 746509911 Problem Arthritis M19.90 Active 1359897 Problem Primary osteoarthritis of right hip M16.11 Active 682519009 Problem Mild episode of recurrent major depressive disorder F33.0 Active 963551088 Problem Alcohol abuse with alcohol-induced mood disorder F10.14 Active Problem 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 Active 167016625 Problem Essential hypertension I10 Active 34813663 Problem Abnormal glucose R73.09 Active 093471981 Problem Peripheral edema R60.9 Active 132707532 Problem Heartburn R12 Active 66193328 Problem Discoloration of skin L81.9 Active 8168327 Problem Hyponatremia E87.1 Active 86202417 Problem BPH (benign prostatic hyperplasia) N40.0 Active 593886630 Problem Chest pain, unspecified chest pain type R07.9 Active 73633120 Problem Hypomagnesemia E83.42 Active 494499418 Problem Frequent headaches R51 Active 821867277 Problem Chronic hepatitis C without hepatic coma B18.2 Active 175264043 Problem Foot pain M79.673 Active 45867380 Problem Alcoholism F10.20 Active 0941895 ALLERGIES Unknown Allergies SOCIAL HISTORY No smoking Hx information available PLAN OF CARE VITAL SIGNS MEDICATIONS Unknown Medications RESULTS No Results PROCEDURES No Known procedures IMMUNIZATIONS No Known Immunizations
--- OUTSIDE RECORDS SUMMARY | 2016-11-17 20:51 | XMS REPORT ---
Author Author KIT BOSTON [facility] Address [address] [place] [address] Care Team Providers Care Barrel Header Name Role Phone KIT BOSTON Unavailable PROBLEMS Type Condition ICD9-CM Code [id number] Code Onset Dates Condition Status SNOMED Code Problem Acquired hypothyroidism E03.9 Active 599951955 Problem Right hip pain M25.551 Active 828122522977464 Problem Erectile dysfunction N52.9 Active 125236247 Problem Other seasonal allergic rhinitis J30.2 Active 766383170 Problem Edema R60.9 Active 482290455 Problem Right anterior knee pain M25.561 Active 515916957 Problem PAD (peripheral artery disease) I73.9 Active 435166743 Problem Arthritis M19.90 Active 8001231 Problem Primary osteoarthritis of right hip M16.11 Active 182320241 Problem Mild episode of recurrent major depressive disorder F33.0 Active 904642964 Problem Alcohol abuse with alcohol-induced mood disorder F10.14 Active Problem 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 Active 385844434 Problem Essential hypertension I10 Active 11944033 Problem Abnormal glucose R73.09 Active 462246672 Problem Peripheral edema R60.9 Active 156676038 Problem Heartburn R12 Active 59231983 Problem Discoloration of skin L81.9 Active 4925694 Problem Hyponatremia E87.1 Active 32285666 Problem BPH (benign prostatic hyperplasia) N40.0 Active 949126670 Problem Chest pain, unspecified chest pain type R07.9 Active 84321043 Problem Hypomagnesemia E83.42 Active 543379985 Problem Frequent headaches R51 Active 116288149 Problem Chronic hepatitis C without hepatic coma B18.2 Active 758338225 Problem Foot pain M79.673 Active 43436040 Problem Alcoholism F10.20 Active 3344327 ALLERGIES Unknown Allergies SOCIAL HISTORY No smoking Hx information available PLAN OF CARE VITAL SIGNS MEDICATIONS Unknown Medications RESULTS No Results PROCEDURES No Known procedures IMMUNIZATIONS No Known Immunizations
--- OUTSIDE RECORDS SUMMARY | 2016-11-17 20:51 | XMS REPORT ---
Author Author KIT BOSTON [facility] Address [address] [place] [address] Care Team Providers Care Cheese Supervisor Name Role Phone KIT BOSTON Unavailable PROBLEMS Type Condition ICD9-CM Code [id number] Code Onset Dates Condition Status SNOMED Code Problem Acquired hypothyroidism E03.9 Active 849176516 Problem Right hip pain M25.551 Active 676596487914274 Problem Erectile dysfunction N52.9 Active 066200349 Problem Other seasonal allergic rhinitis J30.2 Active 284211414 Problem Edema R60.9 Active 096865194 Problem Right anterior knee pain M25.561 Active 911935964 Problem PAD (peripheral artery disease) I73.9 Active 682020041 Problem Arthritis M19.90 Active 3057317 Problem Primary osteoarthritis of right hip M16.11 Active 837492327 Problem Mild episode of recurrent major depressive disorder F33.0 Active 436486777 Problem Alcohol abuse with alcohol-induced mood disorder F10.14 Active Problem 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 Active 737724987 Problem Essential hypertension I10 Active 57993705 Problem Abnormal glucose R73.09 Active 027759743 Problem Peripheral edema R60.9 Active 138832478 Problem Heartburn R12 Active 09154089 Problem Discoloration of skin L81.9 Active 0755405 Problem Hyponatremia E87.1 Active 26256349 Problem BPH (benign prostatic hyperplasia) N40.0 Active 767465763 Problem Chest pain, unspecified chest pain type R07.9 Active 83517565 Problem Hypomagnesemia E83.42 Active 463588770 Problem Frequent headaches R51 Active 899531929 Problem Chronic hepatitis C without hepatic coma B18.2 Active 058720130 Problem Foot pain M79.673 Active 55026675 Problem Alcoholism F10.20 Active 8749563 ALLERGIES Unknown Allergies SOCIAL HISTORY No smoking Hx information available PLAN OF CARE VITAL SIGNS MEDICATIONS Medication Instructions Dosage Frequency Start Date End Date Duration Status Keflex 500 MG Orally Twice a day 1 capsule 12h Jan, Mar, 10 day(s) Active RESULTS No Results PROCEDURES No Known procedures IMMUNIZATIONS No Known Immunizations
[2016-11-17 21:00] LABS: BASOPHILS # (AUTO) 0.1 10^3/uL (0.0-0.1); BASOPHILS % (AUTO) 1 % (0-10); EOSINOPHILS # (AUTO) 0.1 10^3/uL (0.0-0.3); EOSINOPHILS % (AUTO) 1 % (0-10); LYMPHOCYTES % (AUTO) 9 % (12-44); MEAN CORPUSCULAR HEMOGLOBIN 34 PG (25-34); MEAN CORPUSCULAR HGB CONC 39 G/DL (32-36); MEAN CORPUSCULAR VOLUME 89 FL (80-99); MONOCYTES # (AUTO) 1.6 X 10^3 (0.0-1.0); MONOCYTES % (AUTO) 13 % (0-12); NEUTROPHILS # (AUTO) 9.2 X 10^3 (1.8-7.8); NEUTROPHILS % (AUTO) 76 % (42-75); PLATELET COUNT 127 10^3/uL (130-400); RED BLOOD COUNT 2.99 10^6/uL (4.35-5.85); RED CELL DISTRIBUTION WIDTH 17.6 % (10.0-14.5)
[2016-11-17] MEDS ORDERED: SCOPOLAMINE 1.5 MG (TRANSDERM-SCOP) PATCH TD ONE (21:00)
[2016-11-17] MEDS ORDERED: MECLIZINE 25 MG (ANTIVERT) TAB PO ONE (21:00)
[2016-11-17] MEDS ORDERED: ONDANSETRON 4 MG/2 ML (SDV) Z0FRAN IVP ONE (21:00)
[2016-11-17 21:09] LABS: INR 1.4 (0.8-1.4); PROTHROMBIN TIME PATIENT 16.9 SEC (12.2-14.7)
--- NOTE | 2016-11-17 21:24 | Diagnostic Imaging Report ---
INDICATION: Stroke. COMPARISON: 09/18/16. FINDINGS: Single view of the chest demonstrates stable minimal cardiac enlargement. Lungs are clear. No pneumothorax is seen. Osseous structures normal. IMPRESSION: Minimal cardiac enlargement without pulmonary edema or infiltrate. Dictated by: Dictated on workstation # [id number]
[2016-11-17 21:25] LABS: ALANINE AMINOTRANSFERASE 53 U/L (0-55); ALBUMIN 2.3 GM/DL (3.2-4.5); ANION GAP 11 MMOL/L (5-14); ASPARTATE AMINO TRANSFERASE 145 U/L (5-34); BILIRUBIN,TOTAL 15.8 MG/DL (0.1-1.0); BLOOD UREA NITROGEN 18 MG/DL (7-18); BUN/CREATININE RATIO 14; CALCIUM 8.1 MG/DL (8.5-10.1); CARBON DIOXIDE 17 MMOL/L (21-32); CHLORIDE 84 MMOL/L (98-107); CREATININE SERUM 1.26 MG/DL (0.60-1.30); GFR ESTIMATED > 60; GLUCOSE 97 MG/DL (70-105); MAGNESIUM 1.5 MG/DL (1.8-2.4); POTASSIUM 4.1 MMOL/L (3.6-5.0); TOTAL PROTEIN 7.4 GM/DL (6.4-8.2)
--- NOTE | 2016-11-17 21:28 | Diagnostic Imaging Report ---
INDICATION: Stroke COMPARISON: None FINDINGS: Minimal age-related cerebral volume loss and chronic small vessel ischemic changes are present. There is no midline shift or mass effect. There is no hemorrhage or evidence of acute ischemia. There is no dense vessel sign. No cerebral edema. The bony calvarium and mastoids are clear. There is an air-fluid level in the left maxillary sinus. IMPRESSION: 1. No acute intracranial abnormality 2. Sinusitis. Dictated by: Dictated on workstation # [id number]
[2016-11-17 21:36] LABS: SODIUM 112 MMOL/L (135-145)
[2016-11-17 21:50] LABS: KETONES,URINE 1+ (NEGATIVE); LEUKOCYTE ESTERASE ,URINE 3+ (NEGATIVE); NITRITE,URINE POSITIVE (NEGATIVE); PH,URINE 5 (5-9); PROTEIN,URINE 2+ (NEGATIVE); UROBILINOGEN,URINE 12 MG/DL (NORMAL)
[2016-11-17 22:01] LABS: BILIRUBIN,URINE 3+ (NEGATIVE); WBC,URINE >100 /HPF
[2016-11-17 22:02] LABS: TROPONIN I < 0.30 NG/ML (<0.30)
[2016-11-17 22:20] VITALS: BP 141/82
[2016-11-17 22:21] LABS: ALCOHOL 25 MG/DL (<10); AMMONIA 49 UMOL/L (11-32); AMYLASE 69 U/L (25-125); LIPASE 49 U/L (8-78)
[2016-11-17] MEDS ORDERED: LORazepam INJ 2 MG/ML (ATIVAN) VIAL IV PRN (22:45)
[2016-11-17] MEDS ORDERED: SODIUM CHLORIDE 3% 500 ML INJ SCH (22:45)
[2016-11-17] MEDS ORDERED: ONDANSETRON 4 MG/2 ML (SDV) Z0FRAN IV PRN (22:45)
[2016-11-17 23:00] VITALS: BP 119/71
[2016-11-17] MEDS ORDERED: oxyCODONE/APAP 5/325MG (PERCOCET 5) TABLET PO PRN (23:45)
[2016-11-17] MEDS: LEVOFLOXACIN 500 MG/100 ML IV 100 ML IV SCH (23:53)
[2016-11-18] VITALS (11 sets, daily range): BP systolic 90–127; BP diastolic 54–90
[2016-11-18 01:09] LABS: ANION GAP 10 MMOL/L (5-14); BLOOD UREA NITROGEN 18 MG/DL (7-18); BUN/CREATININE RATIO 13; CALCIUM 7.7 MG/DL (8.5-10.1); CARBON DIOXIDE 18 MMOL/L (21-32); CHLORIDE 85 MMOL/L (98-107); CREATININE SERUM 1.34 MG/DL (0.60-1.30); GFR ESTIMATED > 60; GLUCOSE 96 MG/DL (70-105); POTASSIUM 3.9 MMOL/L (3.6-5.0)
[2016-11-18 01:13] LABS: SODIUM 113 MMOL/L (135-145)
[2016-11-18 04:15] LABS: BASOPHILS # (AUTO) 0.1 10^3/uL (0.0-0.1); BASOPHILS % (AUTO) 1 % (0-10); EOSINOPHILS # (AUTO) 0.1 10^3/uL (0.0-0.3); EOSINOPHILS % (AUTO) 1 % (0-10); MEAN CORPUSCULAR HEMOGLOBIN 34 PG (25-34); MEAN CORPUSCULAR HGB CONC 39 G/DL (32-36); MEAN CORPUSCULAR VOLUME 88 FL (80-99); MEAN PLATELET VOLUME 11.7 FL (7.4-10.4); MONOCYTES # (AUTO) 1.6 X 10^3 (0.0-1.0); MONOCYTES % (AUTO) 13 % (0-12); NEUTROPHILS # (AUTO) 9.9 X 10^3 (1.8-7.8); PLATELET COUNT 79 10^3/uL (130-400); RED BLOOD COUNT 2.85 10^6/uL (4.35-5.85); WHITE BLOOD COUNT 12.6 10^3/uL (4.3-11.0)
[2016-11-18 04:18] LABS: LYMPHOCYTES % (AUTO) 9 % (12-44); NEUTROPHILS % (AUTO) 77 % (42-75)
[2016-11-18 04:43] LABS: ALANINE AMINOTRANSFERASE 45 U/L (0-55); ALBUMIN 1.9 GM/DL (3.2-4.5); ANION GAP 7 MMOL/L (5-14); ASPARTATE AMINO TRANSFERASE 120 U/L (5-34); BLOOD UREA NITROGEN 19 MG/DL (7-18); BUN/CREATININE RATIO 13; CALCIUM 7.5 MG/DL (8.5-10.1); CARBON DIOXIDE 19 MMOL/L (21-32); CHLORIDE 87 MMOL/L (98-107); CREATININE SERUM 1.46 MG/DL (0.60-1.30); GFR ESTIMATED > 60; GLUCOSE 100 MG/DL (70-105); MAGNESIUM 1.2 MG/DL (1.8-2.4); PHOSPHORUS 2.4 MG/DL (2.3-4.7); POTASSIUM 4.1 MMOL/L (3.6-5.0)
[2016-11-18 04:50] LABS: SODIUM 113 MMOL/L (135-145)
[2016-11-18] MEDS: inSUlin (REGULAR) HUMAN 1 UNIT/0.01 ML (CHARGE PER UNIT) SC SCH ×2 (05:22→11:40)
[2016-11-18] MEDS ORDERED: MAGNESIUM 1 GM/100 ML IVPB 100 ML IV SCH (06:00)
[2016-11-18] MEDS ORDERED: KCL 20 MEQ TAB (K-DUR) PO SCH (06:00)
[2016-11-18] MEDS ORDERED: POTASSIUM CL 10MEQ/50ML IVPB 50 ML IV SCH (06:00)
[2016-11-18] MEDS: MAGNESIUM 1 GM/100 ML IVPB 100 ML IV SCH ×3 (06:13→07:49)
--- NOTE | 2016-11-18 06:58 | ED General ---
General Chief Complaint: Dizziness/Syncope Stated Complaint: AMS,SEVERE HYPONATREMIA,HEP C,ELEVATED BILIRUBIN Nursing Triage Note: patient reports dizziness, weakness and lightheadedness for awhile Nursing Sepsis Screen: No Definite Risk Source of Information: Patient, Old Records (ALL PMH IS FROM OLD RECORDS) Exam Limitations: Other (PT IS A VERY POOR/VAGUE HISTORIAN-GIVES MUCH CONFLICTING / INCORRECT INFORMATION AND IS UNABLE TO GIVE ANY PAST MEDICAL HISTORY, AND DOES NOT KNOW ANY OF HIS MEDICATIONS OR WHAT HE TAKES THEM FOR. ) History of Present Illness Time Seen by Provider: 20:45 Initial Comments PT ARRIVES VIA EMS FROM HOME C/O FEELING DIZZY/LIGHTHEADED X 1 WEEK AND IS GETTING WORSE HAS NOT SOUGHT CARE UNTIL TODAY NO HEADACHE NO VISION CHANGES + NAUSEA, NO VOMITING NO CHEST PAIN, SHORTNESS OF BREATH OR PALPITATIONS NO PARESTHESIAS OR MOTOR DEFICITS STATES HE HAS HAD THIS BEFORE--CLAIMS HE WAS HERE "2 OR 3 WEEKS AGO" FOR THIS PROBLEM, AND THINKS HE WAS GIVEN MEDICATIONS, BUT DOES NOT KNOW IF HE HAS FILLED THE RX OR TAKEN THE MEDICATION--ACTUALLY PT HAS NOT BEEN HERE SINCE HE WAS ADMITTED 09/16/16--DX HEPATIC ENCEPHALOPATHY, SEVERE HYPONATREMIA STATES HE SAW END USER SUPPORT SPECIALIST KIT BOSTON"2 OR 3 DAYS AGO" "BUT NOT FOR THIS" -BUT CANNOT STATE WHY HE WAS THERE OR IF HE WAS GIVEN ANY MEDICATIONS--PER MED. RECONCILIATION,PT RECEIVED RX FOR PREDNISONE BY Raquel BOSTON ON 11/03/16 UNABLE TO OBTAIN ANY OTHER RELEVANT INFORMATION FROM PT PT DOES HAVE HEPATITIS C--NO TREATMENT, AND IS SUPPOSED TO TAKE LACTULOSE PT IS ALSO AN ALCOHOLIC, AND CONTINUES TO DRINK--CLAIMS HE HAS HAD "2 BEERS" TODAY AND HAS AT LEAST THAT MUCH OR MORE EVERY DAY--HAS REPORTED IN THE PAST THAT HE "GETS THE SHAKES" IN THE MORNING UNTIL HE HAS HAD AT LEAST 2 BEERS AFTER HE WAKES UP PT HAS A LONG HISTORY OF POLYSUBSTANCE ABUSE PT HAS A LONG HISTORY OF NON-COMPLIANCE IN ALL ASPECTS OF CARE PCP: EVGENY-K Allergies and Home Medications Allergies Coded Allergies: No Known Drug Allergies (Unverified , 03/18/13) Home Medications Alfuzosin HCl 10 Mg Tab.er.24h, 10 MG PO DAILY@1800, #30 Prescribed by: GILBERTO CAPUTO on 09/21/16 0940 Lactulose 20 Gm/30 Ml Solution, 10 GM PO BID, #8 Prescribed by: GILBERTO CAPUTO on 09/21/16 0940 Levothyroxine Sodium 25 Mcg Tablet, 25 MCG PO DAILY, (Reported) Meloxicam 7.5 Mg Tablet, 7.5 MG PO DAILY, (Reported) Omeprazole 40 Mg Capsule.dr, 40 MG PO DAILY, (Reported) Propranolol HCl 120 Mg Cap.sa.24h, 120 MG PO BID, (Reported) Sildenafil Citrate 50 Mg Tablet, 50 MG PO DAILY PRN for ERECTILE DYSFUNCTION, ( Reported) Spironolactone 100 Mg Tablet, 100 MG PO DAILY, #30 Prescribed by: GILBERTO CAPUTO on 09/21/16 0940 Torsemide 10 Mg Tablet, 10 MG PO DAILY, (Reported) Constitutional: dizziness, malaise, weakness Respiratory: No short of breath Cardiovascular: No chest pain Gastrointestinal: No abdominal pain, nausea, No vomiting Psychiatric/Neurological: See HPI Past [id number] Hx Patient Social History Alcohol Use: Regular Use (> 6 PPD--[place]/20 OZ/8% ALCOHOL) Alcohol Beverage of Choice: Beer Recreational Drug Use: Yes (THC, COCAINE USE BY HISTORY) Smoking Status: Current Everyday Smoker (1 PPD) Type Used: Cigarettes Recent Foreign Travel: No Contact w/Someone Who Travel: No Recent Infectious Disease Expo: No Recent Hopitalizations: No Physical Abuse: No Sexual Abuse: No Immunizations Up To Date Tetanus Booster (TDap): Unknown PED Vaccines UTD: No Seasonal Allergies Seasonal Allergies: Yes Surgeries History of Surgeries: No Respiratory History of Respiratory Disorde: No Currently Using CPAP: No Currently Using BIPAP: No Cardiovascular History of Cardiac Disorders: Yes Cardiac Disorders: Chronic Edema/Swelling, Hypertension Neurological History of Neurological Disord: No Reproductive System Hx Reproductive Disorders: Yes (E.D.--TAKES VIAGRA) Sexually Transmitted Disease: No Genitourinary History of Genitourinary Disor: Yes (kidney disease; INCONTINENCE) Genitourinary Disorders: Prostate Problems, UTI-Chronic Gastrointestinal History of Gastrointestinal Di: Yes (HEPATITIS C--NO TREATMENT; HEPATIC ENCEPHALOPATHY / END STAGE LIVER FAILURE) Gastrointestinal Disorders: Gastroesophageal Reflux, Liver Disease/Jaundice, Hepatitis, Cirrhosis, Irritable Bowel Musculoskeletal History of Musculoskeletal Dis: No Endocrine History of Endocrine Disorders: Yes Endocrine Disorders: Hypothyroidsim HEENT History of HEENT Disorders: Yes (POOR DENTITION) Cancer History of Cancer: No Psychosocial History of Psychiatric Problem: Yes Behavioral Health Disorders: Anxiety, Depression Suicide Risk Score: 0 Integumentary History of Skin or Integumenta: No Blood Transfusions History of Blood Disorders: Yes (ANEMIA AND THROMBOCYTOPENIA-FELT TO BE RELATED TO ALCOHOL ABUSE) Adverse Reaction to a Blood Tr: No Family Medical History Family Medial History: Family history: Cardiovascular disease 03 FATHER Family history: Hypertension 03 MOTHER Physical Exam Vital Signs Vital Sign - Last 12Hours 11/17/16 11/17/16 20:48 22:20 Temp 98.2 Pulse 68 Resp 12 B/P (MAP) 112/70 Pulse Ox 99 O2 Delivery Room Air Capillary Refill : Less Than 3 Seconds General Appearance: No Apparent Distress, WD/WN, Other (VERY DROWSY, SPEECH CLEAR. EASILY AWAKENS, THEN GOES BACK TO SLEEP. + ODOR OF ETOH) HEENT: PERRL/EOMI, Other (POOR DENTITION, ORAL MUCOSA MOIST) Neck: Full Range of Motion, Normal Inspection, Non Tender, Supple Respiratory: Normal Breath Sounds, No Accessory Muscle Use, No Respiratory Distress Cardiovascular: Regular Rate, Rhythm, No JVD, Normal Peripheral Pulses, Systolic Murmur (? FAINT ? ) Gastrointestinal: Normal Bowel Sounds, No Organomegaly, No Pulsatile Mass, Non Tender, Soft, Other (NO OVERT ASCITES) Extremity: Normal Capillary Refill, Normal Range of Motion, Non Tender, No Calf Tenderness, Pedal Edema (2+ EDEMA ) Neurologic/Psychiatric: Alert, No Motor/Sensory Deficits, phys asst II-XII Norm as Tested, Other (ORIENTED TO PERSON, PLACE ; CONFUSED TO TIME AND IS UNCLEAR HOW ORIENTED HE IS TO SITUATION) Skin: Normal Color, Warm/Dry Progress/Results/Core Measures Results/Orders Lab Results Laboratory Tests Test 11/17/16 20:50 11/17/16 21:40 11/17/16 21:50 11/18/16 00:33 Range/Units White Blood Count 12.0 H 4.3-11.0 10^3/uL Red Blood Count 2.99 L 4.35-5.85 10^6/uL Hemoglobin 10.3 L 13.3-17.7 G/DL Hematocrit 27 L 40-54 % Mean Corpuscular Volume 89 80-99 FL Mean Corpuscular Hemoglobin 34 25-34 PG Mean Corpuscular Hemoglobin Concent 39 H 32-36 G/DL Red Cell Distribution Width 17.6 H 10.0-14.5 % Platelet Count 127 L 130-400 10^3/uL Mean Platelet Volume 7.4-10.4 FL Neutrophils (%) (Auto) 76 H 42-75 % Lymphocytes (%) (Auto) 9 L 12-44 % Monocytes (%) (Auto) 13 H 0-12 % Eosinophils (%) (Auto) 1 0-10 % Basophils (%) (Auto) 1 0-10 % Neutrophils # (Auto) 9.2 H 1.8-7.8 X 10^3 Lymphocytes # (Auto) 1.0 1.0-4.0 X 10^3 Monocytes # (Auto) 1.6 H 0.0-1.0 X 10^3 Eosinophils # (Auto) 0.1 0.0-0.3 10^3/uL Basophils # (Auto) 0.1 0.0-0.1 10^3/uL Prothrombin Time 16.9 H 12.2-14.7 SEC INR Comment 1.4 0.8-1.4 Activated Partial Thromboplast Time 39 H 24-35 SEC Sodium Level 112 *L 113 *L 135-145 MMOL/L Potassium Level 4.1 3.9 3.6-5.0 MMOL/L Chloride Level 84 L 85 L 98-107 MMOL/L Carbon Dioxide Level 17 L 18 L 21-32 MMOL/L Anion Gap 11 10 5-14 MMOL/L Blood Urea Nitrogen 18 18 7-18 MG/DL Creatinine 1.26 1.34 H 0.60-1.30 MG/DL Estimat Glomerular Filtration Rate > 60 > 60 BUN/Creatinine Ratio 14 13 Glucose Level 97 96 70-105 MG/DL Calcium Level 8.1 L 7.7 L 8.5-10.1 MG/DL Magnesium Level 1.5 L 1.8-2.4 MG/DL Total Bilirubin 15.8 H 0.1-1.0 MG/DL Aspartate Amino Transf (AST/SGOT) 145 H 5-34 U/L Alanine Aminotransferase (ALT/SGPT) 53 0-55 U/L Alkaline Phosphatase 173 H 40-136 U/L Troponin I < 0.30 <0.30 NG/ML Total Protein 7.4 6.4-8.2 GM/DL Albumin 2.3 L 3.2-4.5 GM/DL TSH [place] Testing 3.68 0.35-4.94 UIU/ML Urine Color GUDELIA H Urine Clarity VERY CLOUDY H Urine pH 5 5-9 Urine Specific [place] 1.010 L 1.016-1.022 Urine Protein 2+ H NEGATIVE Urine Glucose (UA) NEGATIVE NEGATIVE Urine Ketones 1+ H NEGATIVE Urine Nitrite POSITIVE H NEGATIVE Urine Bilirubin 3+ H NEGATIVE Urine Urobilinogen 12 H NORMAL MG/DL Urine Leukocyte Esterase 3+ H NEGATIVE Urine RBC (Auto) 5+ H NEGATIVE Urine RBC 10-25 H /HPF Urine WBC >100 H /HPF Urine Squamous Epithelial Cells 2-5 /HPF Urine Crystals NONE /LPF Urine Leucine Crystals /LPF Urine Amorphous Sediment /LPF Urine Bacteria LARGE H /HPF Urine Casts NONE /LPF Urine Mucus NEGATIVE /LPF Urine Culture Indicated YES Urine Opiates Screen POSITIVE H NEGATIVE Urine Oxycodone Screen NEGATIVE NEGATIVE Urine Methadone Screen NEGATIVE NEGATIVE Urine Propoxyphene Screen NEGATIVE NEGATIVE Urine Barbiturates Screen NEGATIVE NEGATIVE Ur Tricyclic Antidepressants Screen NEGATIVE NEGATIVE Urine Phencyclidine Screen NEGATIVE NEGATIVE Urine Amphetamines Screen NEGATIVE NEGATIVE Urine Methamphetamines Screen NEGATIVE NEGATIVE Urine Benzodiazepines Screen NEGATIVE NEGATIVE Urine Cocaine Screen NEGATIVE NEGATIVE Urine Cannabinoids Screen NEGATIVE NEGATIVE Ammonia 49 H 11-32 UMOL/L Amylase Level 69 25-125 U/L Lipase 49 8-78 U/L Serum Alcohol 25 H <10 MG/DL Test 11/18/16 03:52 Range/Units White Blood Count 12.6 H 4.3-11.0 10^3/uL Red Blood Count 2.85 L 4.35-5.85 10^6/uL Hemoglobin 9.7 L 13.3-17.7 G/DL Hematocrit 25 L 40-54 % Mean Corpuscular Volume 88 80-99 FL Mean Corpuscular Hemoglobin 34 25-34 PG Mean Corpuscular Hemoglobin Concent 39 H 32-36 G/DL Red Cell Distribution Width 17.0 H 10.0-14.5 % Platelet Count 79 L 130-400 10^3/uL Mean Platelet Volume 11.7 H 7.4-10.4 FL Neutrophils (%) (Auto) 77 H 42-75 % Lymphocytes (%) (Auto) 9 L 12-44 % Monocytes (%) (Auto) 13 H 0-12 % Eosinophils (%) (Auto) 1 0-10 % Basophils (%) (Auto) 1 0-10 % Neutrophils # (Auto) 9.9 H 1.8-7.8 X 10^3 Lymphocytes # (Auto) 1.0 1.0-4.0 X 10^3 Monocytes # (Auto) 1.6 H 0.0-1.0 X 10^3 Eosinophils # (Auto) 0.1 0.0-0.3 10^3/uL Basophils # (Auto) 0.1 0.0-0.1 10^3/uL Sodium Level 113 *L 135-145 MMOL/L Potassium Level 4.1 3.6-5.0 MMOL/L Chloride Level 87 L 98-107 MMOL/L Carbon Dioxide Level 19 L 21-32 MMOL/L Anion Gap 7 5-14 MMOL/L Blood Urea Nitrogen 19 H 7-18 MG/DL Creatinine 1.46 H 0.60-1.30 MG/DL Estimat Glomerular Filtration Rate > 60 BUN/Creatinine Ratio 13 Glucose Level 100 70-105 MG/DL Calcium Level 7.5 L 8.5-10.1 MG/DL Phosphorus Level 2.4 2.3-4.7 MG/DL Magnesium Level 1.2 L 1.8-2.4 MG/DL Total Bilirubin 14.0 H 0.1-1.0 MG/DL Aspartate Amino Transf (AST/SGOT) 120 H 5-34 U/L Alanine Aminotransferase (ALT/SGPT) 45 0-55 U/L Alkaline Phosphatase 156 H 40-136 U/L Total Protein 6.0 L 6.4-8.2 GM/DL Albumin 1.9 L 3.2-4.5 GM/DL My Orders Orders - TITO ROSAS DO Ekg Tracing (11/17/16 20:50) Scopolamine Patch (Transderm-Scop Patch) (11/17/16 21:00) Meclizine Tablet (Antivert Tablet) (11/17/16 21:00) Ondansetron Injection (Zofran Injectio (11/17/16 21:00) Saline Lock/Iv-Start (11/17/16 20:51) Monitor-Rhythm Ecg Trace Only (11/17/16 20:51) Ct Head Wo-R/O Stroke (11/17/16 20:51) Cbc With Automated Diff (11/17/16 20:51) Comprehensive Metabolic Panel (11/17/16 20:51) Drug Screen Stat (Urine) (11/17/16 20:51) Magnesium (11/17/16 20:51) Protime With Inr (11/17/16 20:51) Partial Thromboplastin Time (11/17/16 20:51) Thyroid Analyzer (11/17/16 20:51) Troponin I (11/17/16 20:51) Ua Culture If Indicated (11/17/16 20:51) Chest 1 View, Ap/Pa Only (11/17/16 20:51) Alcohol (11/17/16 21:00) Ammonia (11/17/16 21:00) Amylase (11/17/16 21:36) Lipase (11/17/16 21:36) Hepatitis C Rna By Pcr (11/17/16 21:51) Urine Culture (11/17/16 21:40) Medications Given in ED Current Medications Medications Dose Ordered Sig/Otilia Route Start Time Stop Time Status Last Admin Dose Admin Meclizine HCl 50 mg ONCE ONCE PO 11/17/16 21:00 11/17/16 21:01 DC 11/17/16 20:59 50 MG Ondansetron HCl 4 mg ONCE ONCE IVP 11/17/16 21:00 11/17/16 21:01 DC 11/17/16 20:59 4 MG Scopolamine 1.5 mg ONCE ONCE TD 11/17/16 21:00 11/17/16 21:01 DC 11/17/16 20:59 1.5 MG Vital Signs/I&O Vital Sign - Last 12Hours 11/17/16 11/17/16 11/17/16 11/17/16 20:48 22:09 22:20 22:25 Temp 98.2 96.3 Pulse 68 66 68 Resp 12 12 18 B/P (MAP) 112/70 141/82 Pulse Ox 99 95 100 O2 Delivery Room Air Room Air 11/17/16 11/17/16 11/18/16 11/18/16 22:42 23:00 00:00 00:00 Pulse 67 66 69 Resp 12 14 B/P (MAP) 119/71 121/73 Pulse Ox 100 99 100 O2 Delivery Room Air Room Air Room Air 11/18/16 11/18/16 11/18/16 11/18/16 00:26 00:54 01:00 02:00 Temp 96.5 Pulse 70 64 65 Resp 10 9 B/P (MAP) 127/58 91/54 Pulse Ox 99 99 O2 Delivery Room Air Room Air Room Air 11/18/16 11/18/16 11/18/16 11/18/16 03:00 04:00 04:00 04:00 Temp 97.0 Pulse 63 68 Resp 9 12 B/P (MAP) 100/88 112/64 Pulse Ox 99 98 100 O2 Delivery Room Air Room Air Room Air Room Air 11/18/16 11/18/16 05:00 06:00 Pulse 62 65 Resp 10 10 B/P (MAP) 96/67 119/77 Pulse Ox 99 100 O2 Delivery Room Air Room Air Blood Pressure Mean: 91 Point of Care Testing Finger Stick Blood Glucose: 100 Progress Note : Progress Note NO DETERIORATION IN PT'S CONDITION DURING ER STAY ECG Initial ECG Impression Time: 20:51 Initial ECG Rate: 63 Initial ECG Rhythm: Normal Sinus Initial ECG Impression: Nonspecific Changes Initial ECG Comparisson: Unchanged Diagnostic Imaging Comments CXR--CARDIOMEGALY, NO CHF OR ACUTE PROCESS CT HEAD--SINUSITIS, OTHERWISE NO ACUTE PROCESS PER RADIOLOGIST REPORTS @ 2133 Reviewed: Reviewed by Me Departure Communication (Admissions) Progress Notes 2138--SPOKE WITH DR. BELL, ACCEPTS PT FOR ADMIT. ORDERS NOTED FOR FLUIDS. Impression Impression: Primary Impression: Hyponatremia Additional Impressions: Altered mental status Hepatitis C Alcohol abuse HX OF POLYSUBSTANCE ABUSE HX OF NONCOMPLIANCE END STAGE LIVER FAILURE Hepatic encephalopathy Elevated bilirubin UTI (urinary tract infection) Disposition: ADMITTED INPATIENT Condition: Stable Admissions Decision to Admit Reason: Admit from ER (General) Decision to Admit/Date: Nov 17, 2016 Time/Decision to Admit Time: 21:40 Departure-Patient Inst. Referrals: [facility] (PCP) Primary Care Physician KIT BOSTON (Family) Primary Care Physician TITO ROSAS DO Nov 18, 2016 06:58
[2016-11-18 07:19] LABS: ANION GAP 6 MMOL/L (5-14); BLOOD UREA NITROGEN 20 MG/DL (7-18); BUN/CREATININE RATIO 14; CALCIUM 7.7 MG/DL (8.5-10.1); CARBON DIOXIDE 20 MMOL/L (21-32); CHLORIDE 88 MMOL/L (98-107); CREATININE SERUM 1.46 MG/DL (0.60-1.30); GFR ESTIMATED > 60; GLUCOSE 101 MG/DL (70-105); POTASSIUM 4.1 MMOL/L (3.6-5.0)
[2016-11-18 07:28] LABS: SODIUM 114 MMOL/L (135-145)
[2016-11-18] MEDS: LEVOFLOXACIN 500 MG/100 ML IV 100 ML IV SCH (07:50)
--- NOTE | 2016-11-18 09:34 | Diagnostic Imaging Report ---
INDICATION: Altered mental status. TECHNIQUE: Single view chest at 3:17 AM. CORRELATION STUDY: 11/17/2016. FINDINGS: The heart size is borderline enlarged with the vasculature normal. Asymmetric elevation of the right diaphragm with right basilar volume loss. No definitive infiltrate. IMPRESSION: Right lung volume loss with atelectasis at the right lung base. Cardiac enlargement without failure. Dictated by: Dictated on workstation # [id number]
[2016-11-18] MEDS ORDERED: OMEP40CA36 PO (10:25)
--- NOTE | 2016-11-18 11:24 | History & Physicial (CHS) ---
HPI History of Present Illness: 56 yo male brought to the ER by EMS after girlfriend called them because he has been lethargic and weak. He reports increasing fatigue, weakness and nausea over the last week or so. He denies abdominal pain, vomiting, diarrhea or constipation. Date seen by provider: Nov 18, 2016 Time Seen by Provider: 09:45 Attending Physician Alfredo Kapadia MD PCP krystin,[facility] Consult Date of Admission Nov 17, 2016 at 10:01 pm Home Medications Home Medications Reviewed patient Home Medication Reconciliation Form Allergies Coded Allergies: No Known Drug Allergies (Unverified , 03/18/13) BNP-[id number]-Cgwybj Hx Patient Social History Alcohol Use: Regular Use (> 6 PPD--[place]/20 OZ/8% ALCOHOL) Recreational Drug Use: Yes (THC, cocaine per history, on this admission, patient denies) Smoking Status: Current Everyday Smoker (1 PPD) Type Used: Cigarettes Recent Foreign Travel: No Contact w/other who traveled: No Recent Hopitalizations: No Recent Infectious Disease Expo: No Physical Abuse Screen: No Sexual Abuse: No Immunizations Up To Date Tetanus Booster (TDap): Unknown Past Medical History Past medical history 1. Hypertension 2. Alcoholism 3. Chronic hepatitis C: Untreated 4. Illicit drug use 5. Cirrhois with portal HTN 6. Hypothyroidism Denied any past surgical history Family Medical History Significant Family History: Hypertension Review of Systems (CHC) Constitutional: No fever, weakness EENTM: No nose congestion Respiratory: No cough, No short of breath Gastrointestinal: see HPI Genitourinary: no symptoms reported Musculoskeletal: no symptoms reported Skin: No change in color Psychiatric/Neurological: Other (numbness in feet) Reviewed Test Results Reviewed Test Results Lab Laboratory Tests Test 11/17/16 20:50 11/17/16 21:40 11/17/16 21:50 11/18/16 00:33 Range/Units White Blood Count 12.0 H 4.3-11.0 10^3/uL Red Blood Count 2.99 L 4.35-5.85 10^6/uL Hemoglobin 10.3 L 13.3-17.7 G/DL Hematocrit 27 L 40-54 % Mean Corpuscular Volume 89 80-99 FL Mean Corpuscular Hemoglobin 34 25-34 PG Mean Corpuscular Hemoglobin Concent 39 H 32-36 G/DL Red Cell Distribution Width 17.6 H 10.0-14.5 % Platelet Count 127 L 130-400 10^3/uL Mean Platelet Volume 7.4-10.4 FL Neutrophils (%) (Auto) 76 H 42-75 % Lymphocytes (%) (Auto) 9 L 12-44 % Monocytes (%) (Auto) 13 H 0-12 % Eosinophils (%) (Auto) 1 0-10 % Basophils (%) (Auto) 1 0-10 % Neutrophils # (Auto) 9.2 H 1.8-7.8 X 10^3 Lymphocytes # (Auto) 1.0 1.0-4.0 X 10^3 Monocytes # (Auto) 1.6 H 0.0-1.0 X 10^3 Eosinophils # (Auto) 0.1 0.0-0.3 10^3/uL Basophils # (Auto) 0.1 0.0-0.1 10^3/uL Prothrombin Time 16.9 H 12.2-14.7 SEC INR Comment 1.4 0.8-1.4 Activated Partial Thromboplast Time 39 H 24-35 SEC Sodium Level 112 *L 113 *L 135-145 MMOL/L Potassium Level 4.1 3.9 3.6-5.0 MMOL/L Chloride Level 84 L 85 L 98-107 MMOL/L Carbon Dioxide Level 17 L 18 L 21-32 MMOL/L Anion Gap 11 10 5-14 MMOL/L Blood Urea Nitrogen 18 18 7-18 MG/DL Creatinine 1.26 1.34 H 0.60-1.30 MG/DL Estimat Glomerular Filtration Rate > 60 > 60 BUN/Creatinine Ratio 14 13 Glucose Level 97 96 70-105 MG/DL Calcium Level 8.1 L 7.7 L 8.5-10.1 MG/DL Magnesium Level 1.5 L 1.8-2.4 MG/DL Total Bilirubin 15.8 H 0.1-1.0 MG/DL Aspartate Amino Transf (AST/SGOT) 145 H 5-34 U/L Alanine Aminotransferase (ALT/SGPT) 53 0-55 U/L Alkaline Phosphatase 173 H 40-136 U/L Troponin I < 0.30 <0.30 NG/ML Total Protein 7.4 6.4-8.2 GM/DL Albumin 2.3 L 3.2-4.5 GM/DL TSH [place] Testing 3.68 0.35-4.94 UIU/ML Urine Color GUDELIA H Urine Clarity VERY CLOUDY H Urine pH 5 5-9 Urine Specific [place] 1.010 L 1.016-1.022 Urine Protein 2+ H NEGATIVE Urine Glucose (UA) NEGATIVE NEGATIVE Urine Ketones 1+ H NEGATIVE Urine Nitrite POSITIVE H NEGATIVE Urine Bilirubin 3+ H NEGATIVE Urine Urobilinogen 12 H NORMAL MG/DL Urine Leukocyte Esterase 3+ H NEGATIVE Urine RBC (Auto) 5+ H NEGATIVE Urine RBC 10-25 H /HPF Urine WBC >100 H /HPF Urine Squamous Epithelial Cells 2-5 /HPF Urine Crystals NONE /LPF Urine Leucine Crystals /LPF Urine Amorphous Sediment /LPF Urine Bacteria LARGE H /HPF Urine Casts NONE /LPF Urine Mucus NEGATIVE /LPF Urine Culture Indicated YES Urine Opiates Screen POSITIVE H NEGATIVE Urine Oxycodone Screen NEGATIVE NEGATIVE Urine Methadone Screen NEGATIVE NEGATIVE Urine Propoxyphene Screen NEGATIVE NEGATIVE Urine Barbiturates Screen NEGATIVE NEGATIVE Ur Tricyclic Antidepressants Screen NEGATIVE NEGATIVE Urine Phencyclidine Screen NEGATIVE NEGATIVE Urine Amphetamines Screen NEGATIVE NEGATIVE Urine Methamphetamines Screen NEGATIVE NEGATIVE Urine Benzodiazepines Screen NEGATIVE NEGATIVE Urine Cocaine Screen NEGATIVE NEGATIVE Urine Cannabinoids Screen NEGATIVE NEGATIVE Ammonia 49 H 11-32 UMOL/L Amylase Level 69 25-125 U/L Lipase 49 8-78 U/L Serum Alcohol 25 H <10 MG/DL Test 11/18/16 03:52 11/18/16 06:46 11/18/16 11:10 Range/Units White Blood Count 12.6 H 4.3-11.0 10^3/uL Red Blood Count 2.85 L 4.35-5.85 10^6/uL Hemoglobin 9.7 L 13.3-17.7 G/DL Hematocrit 25 L 40-54 % Mean Corpuscular Volume 88 80-99 FL Mean Corpuscular Hemoglobin 34 25-34 PG Mean Corpuscular Hemoglobin Concent 39 H 32-36 G/DL Red Cell Distribution Width 17.0 H 10.0-14.5 % Platelet Count 79 L 130-400 10^3/uL Mean Platelet Volume 11.7 H 7.4-10.4 FL Neutrophils (%) (Auto) 77 H 42-75 % Lymphocytes (%) (Auto) 9 L 12-44 % Monocytes (%) (Auto) 13 H 0-12 % Eosinophils (%) (Auto) 1 0-10 % Basophils (%) (Auto) 1 0-10 % Neutrophils # (Auto) 9.9 H 1.8-7.8 X 10^3 Lymphocytes # (Auto) 1.0 1.0-4.0 X 10^3 Monocytes # (Auto) 1.6 H 0.0-1.0 X 10^3 Eosinophils # (Auto) 0.1 0.0-0.3 10^3/uL Basophils # (Auto) 0.1 0.0-0.1 10^3/uL Sodium Level 113 *L 114 *L 135-145 MMOL/L Potassium Level 4.1 4.1 3.6-5.0 MMOL/L Chloride Level 87 L 88 L 98-107 MMOL/L Carbon Dioxide Level 19 L 20 L 21-32 MMOL/L Anion Gap 7 6 5-14 MMOL/L Blood Urea Nitrogen 19 H 20 H 7-18 MG/DL Creatinine 1.46 H 1.46 H 0.60-1.30 MG/DL Estimat Glomerular Filtration Rate > 60 > 60 BUN/Creatinine Ratio 13 14 Glucose Level 100 101 70-105 MG/DL Calcium Level 7.5 L 7.7 L 8.5-10.1 MG/DL Phosphorus Level 2.4 2.3-4.7 MG/DL Magnesium Level 1.2 L 1.8-2.4 MG/DL Total Bilirubin 14.0 H 0.1-1.0 MG/DL Aspartate Amino Transf (AST/SGOT) 120 H 5-34 U/L Alanine Aminotransferase (ALT/SGPT) 45 0-55 U/L Alkaline Phosphatase 156 H 40-136 U/L Total Protein 6.0 L 6.4-8.2 GM/DL Albumin 1.9 L 3.2-4.5 GM/DL Radiology CT head 11/17: sinusitis, otherwise unremarkable CXR 11/17: IMPRESSION: Minimal cardiac enlargement without pulmonary edema or infiltrate. Physical Exam-([facility]) Physical Exam Vital Signs VS - Last 72 Hours, by Label 11/17/16 11/17/16 11/17/16 11/17/16 20:48 22:09 22:20 22:25 Temp 98.2 96.3 Pulse 68 66 68 Resp 12 12 18 B/P (MAP) 112/70 141/82 Pulse Ox 99 95 100 O2 Delivery Room Air Room Air 911/17/16 11/18/16 11/18/16 22:42 23:00 00:00 00:00 Pulse 67 66 69 Resp 12 14 B/P (MAP) 119/71 121/73 Pulse Ox 100 99 100 O2 Delivery Room Air Room Air Room Air 11/18/16 11/18/16 11/18/16 11/18/16 00:26 00:54 01:00 02:00 Temp 96.5 Pulse 70 64 65 Resp 10 9 B/P (MAP) 127/58 91/54 Pulse Ox 99 99 O2 Delivery Room Air Room Air Room Air 11/18/16 11/18/16 11/18/16 11/18/16 03:00 04:00 04:00 04:00 Temp 97.0 Pulse 63 68 Resp 9 12 B/P (MAP) 100/88 112/64 Pulse Ox 99 98 100 O2 Delivery Room Air Room Air Room Air Room Air 11/18/16 11/18/16 11/18/16 11/18/16 05:00 06:00 07:00 07:00 Pulse 62 65 63 63 Resp 10 10 10 B/P (MAP) 96/67 119/77 108/74 Pulse Ox 99 100 99 O2 Delivery Room Air Room Air Room Air 11/18/16 11/18/16 11/18/16 08:00 08:20 09:00 Pulse 61 61 Resp 8 8 B/P (MAP) 104/58 90/67 Pulse Ox 97 98 97 O2 Delivery Room Air Room Air Room Air Capillary Refill : Less Than 3 Seconds General Appearance: no apparent distress Eyes: Bilateral Eye Scleral Icterus HEENT: PERRL/EOMI Respiratory: lungs clear, normal breath sounds Cardiovascular: regular rate, rhythm, no edema, no murmur Gastrointestinal: normal bowel sounds, non tender, soft Neurologic/Psychiatric: deputy director II-XII nml as tested, oriented x 3, other (drowsy, easily falling asleep, slow speech) Skin: warm/dry, other (striae on legs) Assessment/Plan Assessment/Plan Admission Dx Severe hyponatremia with altered mental status Hepatic encephalopathy Cirrhosis with worsening jaundice Acute renal insufficiency Urinary tract infection Chronic hepatitis C Anemia of chronic disease Thrombocytopenia Leukocytosis Plan Severe hyponatremia with altered mental status- appears euvolemic, suspect the severe hyponatremia is related to his end stage liver disease and therefore correction will be minimally helpful given that he is not a transplant candidate due to continued alcohol use -Started hypertonic saline overnight, adjusting rate with goal of no more than 8 mEq/L increase in 24 hours to prevent central pontine myelinosis Hepatic encephalopathy- mild elevation in ammonia, suspect contributing to altered mental status along with his hyponatremia. Additionally urine testing was positive for opiates, which are not listed on home medications -Check liver US for ascites and splenic/portal vein thrombosis Cirrhosis with worsening jaundice and history of varices- possible acute alcoholic hepatitis, but given his hepatitis C, steroids not indicated currently. Hep C PCR pending. Holding home propranolol due to low blood pressure. Acute renal insufficiency- suspect hepatorenal syndrome as he does not appear to be volume depleted, and giving large amount of isotonic fluid may worsen his hyponatremia. If worsening, may need to consider transfer to center with Hepatology if he desires aggressive treatment Urinary tract infection- levofloxacin started in ER, follow-up culture Chronic hepatitis C- hep C pcr pending Anemia of chronic disease- likely due to liver disease, monitor. Thrombocytopenia- likely due to liver disease, worsening, monitor levels and for bleeding Leukocytosis- related to UTI versus acute alcoholic hepatitis. Do not suspect SBP given no abdominal pain, no clear ascites on exam, but will check abdominal US for ascites. DVT ppx- SCDs, no enoxaparin due to low platelets and concern for risk of bleeding with decreasing platelets, coagulopathy from liver disease and history of varices Disp- Had candid discussion with Trevor this morning about the dire situation he is currently in- given his severe hyponatremia with cirrhosis along with possible hepatorenal syndrome, this would indicate a high mortality rate in the immediate future. He is unsure as of yet what his wishes are as far as considering hospice versus transfer for Hepatology if his condition worsens. 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 He does not want his girlfriend and mother to know how severe his illness is at this time, but will consider his wishes and update us with his wishes and questions. Diagnosis/Problems: Clinical Quality Measures DVT/VTE Risk/Contraindication: Risk Factor Score Per Nursin RFS Level Per Nursing on Admit: 2=Moderate ALFREDO KAPADIA MD Nov 18, 2016 11:24
[2016-11-18 11:35] LABS: CALCIUM 7.6 MG/DL (8.5-10.1); CREATININE SERUM 1.52 MG/DL (0.60-1.30)
[2016-11-18 11:40] LABS: BILIRUBIN,DIRECT 10.9 MG/DL (0.0-0.3); BILIRUBIN,INDIRECT 4.3 MG/DL; BILIRUBIN,TOTAL 15.2 MG/DL (0.1-1.0); TOTAL PROTEIN 6.3 GM/DL (6.4-8.2)
--- NOTE | 2016-11-18 13:17 | Discharge Summary ---
Diagnosis/Chief Complaint Date of Admission Nov 17, 2016 at 10:01 pm Date of Discharge Nov 17, 2016 Admission Diagnosis Admission Diagnosis Severe hyponatremia with altered mental status Hepatic encephalopathy Cirrhosis with worsening jaundice Acute renal insufficiency Urinary tract infection Chronic hepatitis C Anemia of chronic disease Thrombocytopenia Leukocytosis Discharge Diagnosis Severe hyponatremia with altered mental status- appears euvolemic, suspect the severe hyponatremia is related to his end stage liver disease and therefore correction will be minimally helpful given that he is not a transplant candidate due to continued alcohol use -Started hypertonic saline overnight, adjusting rate with goal of no more than 8 mEq/L increase in 24 hours to prevent central pontine myelinosis Hepatic encephalopathy- mild elevation in ammonia, suspect contributing to altered mental status along with his hyponatremia. Additionally urine testing was positive for opiates, which are not listed on home medications -Check liver US for ascites and splenic/portal vein thrombosis Cirrhosis with worsening jaundice and history of varices- possible acute alcoholic hepatitis, but given his hepatitis C, steroids not indicated currently. Hep C PCR pending. Holding home propranolol due to low blood pressure. Acute renal insufficiency- suspect hepatorenal syndrome as he does not appear to be volume depleted, and giving large amount of isotonic fluid may worsen his hyponatremia. If worsening, may need to consider transfer to center with Hepatology if he desires aggressive treatment Continued to worsen at each check, patient desired transfer, was discussed with BRIANNA who accepted in transfer Urinary tract infection- levofloxacin started in ER Chronic hepatitis C- hep C pcr pending Anemia of chronic disease- likely due to liver disease, monitor. Thrombocytopenia- likely due to liver disease, worsening, monitor levels and for bleeding Leukocytosis- related to UTI versus acute alcoholic hepatitis. Do not suspect SBP given no abdominal pain, no clear ascites on exam, but will check abdominal US for ascites. DVT ppx- SCDs, no enoxaparin due to low platelets and concern for risk of bleeding with decreasing platelets, coagulopathy from liver disease and history of varices Disp- Had candid discussion with Trevor this morning about the dire situation he is currently in- given his severe hyponatremia with cirrhosis along with possible hepatorenal syndrome, this would indicate a high mortality rate in the immediate future. He is unsure as of yet what his wishes are as far as considering hospice versus transfer for Hepatology if his condition worsens. 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 He does not want his girlfriend and mother to know how severe his illness is at this time, but will consider his wishes and update us with his wishes and questions. Patient decided when creatinine did worsen that he would like to pursue any possible treatment, and so was discussed with BRIANNA who accepted patient in transfer. Chief Complaint/HPI Chief Complaint/HPI 56 yo male brought to the ER by EMS after girlfriend called them because he has been lethargic and weak. He reports increasing fatigue, weakness and nausea over the last week or so. He denies abdominal pain, vomiting, diarrhea or constipation. Discharge Summary-Simple/Stand Consultations Discharge Physical Examination Allergies: Coded Allergies: No Known Drug Allergies (Unverified , 03/18/13) Vitals & I&Os Vital Sign - Last 12Hours Date Time Temp Pulse Resp B/P (MAP) Pulse Ox O2 Delivery O2 Flow Rate FiO2 11/18/16 12:00 98 Room Air 11/18/16 09:00 61 8 90/67 11/18/16 04:00 97.0 Hospital Course See final discharge diagnosis. Labs Laboratory Tests Test 11/17/16 20:50 11/17/16 21:40 11/17/16 21:50 11/18/16 00:33 Range/Units White Blood Count 12.0 H 4.3-11.0 10^3/uL Red Blood Count 2.99 L 4.35-5.85 10^6/uL Hemoglobin 10.3 L 13.3-17.7 G/DL Hematocrit 27 L 40-54 % Mean Corpuscular Volume 89 80-99 FL Mean Corpuscular Hemoglobin 34 25-34 PG Mean Corpuscular Hemoglobin Concent 39 H 32-36 G/DL Red Cell Distribution Width 17.6 H 10.0-14.5 % Platelet Count 127 L 130-400 10^3/uL Mean Platelet Volume 7.4-10.4 FL Neutrophils (%) (Auto) 76 H 42-75 % Lymphocytes (%) (Auto) 9 L 12-44 % Monocytes (%) (Auto) 13 H 0-12 % Eosinophils (%) (Auto) 1 0-10 % Basophils (%) (Auto) 1 0-10 % Neutrophils # (Auto) 9.2 H 1.8-7.8 X 10^3 Lymphocytes # (Auto) 1.0 1.0-4.0 X 10^3 Monocytes # (Auto) 1.6 H 0.0-1.0 X 10^3 Eosinophils # (Auto) 0.1 0.0-0.3 10^3/uL Basophils # (Auto) 0.1 0.0-0.1 10^3/uL Prothrombin Time 16.9 H 12.2-14.7 SEC INR Comment 1.4 0.8-1.4 Activated Partial Thromboplast Time 39 H 24-35 SEC Sodium Level 112 *L 113 *L 135-145 MMOL/L Potassium Level 4.1 3.9 3.6-5.0 MMOL/L Chloride Level 84 L 85 L 98-107 MMOL/L Carbon Dioxide Level 17 L 18 L 21-32 MMOL/L Anion Gap 11 10 5-14 MMOL/L Blood Urea Nitrogen 18 18 7-18 MG/DL Creatinine 1.26 1.34 H 0.60-1.30 MG/DL Estimat Glomerular Filtration Rate > 60 > 60 BUN/Creatinine Ratio 14 13 Glucose Level 97 96 70-105 MG/DL Calcium Level 8.1 L 7.7 L 8.5-10.1 MG/DL Magnesium Level 1.5 L 1.8-2.4 MG/DL Total Bilirubin 15.8 H 0.1-1.0 MG/DL Aspartate Amino Transf (AST/SGOT) 145 H 5-34 U/L Alanine Aminotransferase (ALT/SGPT) 53 0-55 U/L Alkaline Phosphatase 173 H 40-136 U/L Troponin I < 0.30 <0.30 NG/ML Total Protein 7.4 6.4-8.2 GM/DL Albumin 2.3 L 3.2-4.5 GM/DL TSH [place] Testing 3.68 0.35-4.94 UIU/ML Urine Color GUDELIA H Urine Clarity VERY CLOUDY H Urine pH 5 5-9 Urine Specific [place] 1.010 L 1.016-1.022 Urine Protein 2+ H NEGATIVE Urine Glucose (UA) NEGATIVE NEGATIVE Urine Ketones 1+ H NEGATIVE Urine Nitrite POSITIVE H NEGATIVE Urine Bilirubin 3+ H NEGATIVE Urine Urobilinogen 12 H NORMAL MG/DL Urine Leukocyte Esterase 3+ H NEGATIVE Urine RBC (Auto) 5+ H NEGATIVE Urine RBC 10-25 H /HPF Urine WBC >100 H /HPF Urine Squamous Epithelial Cells 2-5 /HPF Urine Crystals NONE /LPF Urine Leucine Crystals /LPF Urine Amorphous Sediment /LPF Urine Bacteria LARGE H /HPF Urine Casts NONE /LPF Urine Mucus NEGATIVE /LPF Urine Culture Indicated YES Urine Opiates Screen POSITIVE H NEGATIVE Urine Oxycodone Screen NEGATIVE NEGATIVE Urine Methadone Screen NEGATIVE NEGATIVE Urine Propoxyphene Screen NEGATIVE NEGATIVE Urine Barbiturates Screen NEGATIVE NEGATIVE Ur Tricyclic Antidepressants Screen NEGATIVE NEGATIVE Urine Phencyclidine Screen NEGATIVE NEGATIVE Urine Amphetamines Screen NEGATIVE NEGATIVE Urine Methamphetamines Screen NEGATIVE NEGATIVE Urine Benzodiazepines Screen NEGATIVE NEGATIVE Urine Cocaine Screen NEGATIVE NEGATIVE Urine Cannabinoids Screen NEGATIVE NEGATIVE Ammonia 49 H 11-32 UMOL/L Amylase Level 69 25-125 U/L Lipase 49 8-78 U/L Serum Alcohol 25 H <10 MG/DL Test 11/18/16 03:52 11/18/16 06:46 11/18/16 11:10 11/18/16 11:36 Range/Units White Blood Count 12.6 H 4.3-11.0 10^3/uL Red Blood Count 2.85 L 4.35-5.85 10^6/uL Hemoglobin 9.7 L 13.3-17.7 G/DL Hematocrit 25 L 40-54 % Mean Corpuscular Volume 88 80-99 FL Mean Corpuscular Hemoglobin 34 25-34 PG Mean Corpuscular Hemoglobin Concent 39 H 32-36 G/DL Red Cell Distribution Width 17.0 H 10.0-14.5 % Platelet Count 79 L 130-400 10^3/uL Mean Platelet Volume 11.7 H 7.4-10.4 FL Neutrophils (%) (Auto) 77 H 42-75 % Lymphocytes (%) (Auto) 9 L 12-44 % Monocytes (%) (Auto) 13 H 0-12 % Eosinophils (%) (Auto) 1 0-10 % Basophils (%) (Auto) 1 0-10 % Neutrophils # (Auto) 9.9 H 1.8-7.8 X 10^3 Lymphocytes # (Auto) 1.0 1.0-4.0 X 10^3 Monocytes # (Auto) 1.6 H 0.0-1.0 X 10^3 Eosinophils # (Auto) 0.1 0.0-0.3 10^3/uL Basophils # (Auto) 0.1 0.0-0.1 10^3/uL Sodium Level 113 *L 114 *L 113 *L 135-145 MMOL/L Potassium Level 4.1 4.1 4.0 3.6-5.0 MMOL/L Chloride Level 87 L 88 L 88 L 98-107 MMOL/L Carbon Dioxide Level 19 L 20 L 20 L 21-32 MMOL/L Anion Gap 7 6 5 5-14 MMOL/L Blood Urea Nitrogen 19 H 20 H 21 H 7-18 MG/DL Creatinine 1.46 H 1.46 H 1.52 H 0.60-1.30 MG/DL Estimat Glomerular Filtration Rate > 60 > 60 58 BUN/Creatinine Ratio 13 14 14 Glucose Level 100 101 101 70-105 MG/DL Calcium Level 7.5 L 7.7 L 7.6 L 8.5-10.1 MG/DL Phosphorus Level 2.4 2.3-4.7 MG/DL Magnesium Level 1.2 L 1.8-2.4 MG/DL Total Bilirubin 14.0 H 15.2 H 0.1-1.0 MG/DL Aspartate Amino Transf (AST/SGOT) 120 H 131 H 5-34 U/L Alanine Aminotransferase (ALT/SGPT) 45 47 0-55 U/L Alkaline Phosphatase 156 H 162 H 40-136 U/L Total Protein 6.0 L 6.3 L 6.4-8.2 GM/DL Albumin 1.9 L 2.0 L 3.2-4.5 GM/DL Direct Bilirubin 10.9 H 0.0-0.3 MG/DL Indirect Bilirubin 4.3 MG/DL Glucometer 115 H 70-110 MG/DL Test 11/18/16 13:00 11/18/16 14:15 Range/Units Arterial Blood pH 7.42 7.37-7.43 Lactic Acid Level 1.28 0.50-2.00 MMOL/L Radiology Reviewed CT head 11/17: sinusitis, otherwise unremarkable CXR 11/17: IMPRESSION: Minimal cardiac enlargement without pulmonary edema or infiltrate. Discharge Condition at discharge Stable, guarded. Transferred to [facility]. Clinical Quality Measures DVT/VTE Risk/Contraindication: Risk Factor Score Per Nursin RFS Level Per Nursing on Admit: 2=Moderate Copy Copies To 1: BRIANNA Garcia BETHANY N MD Nov 18, 2016 1:17 pm
--- NOTE | 2016-11-18 13:36 | Diagnostic Imaging Report ---
PROCEDURE: US abdomen complete. TECHNIQUE: Multiple real-time grayscale images were obtained over the abdomen in various projections. INDICATION: Cirrhosis. FINDINGS: The pancreas is partially obscured by bowel gas. The liver is slightly heterogenous with no focal mass. The portal vein is small in caliber up to 6 mm and demonstrate hepatofugal flow. The splenic vein appears to be patent. The hepatic artery demonstrate normal flow. Flow is demonstrated also in the hepatic veins which appears to be diminished in size however. The CBD is 8 mm in caliber, slightly dilated. The gallbladder demonstrate no stones. There is suggestion of gallbladder sludge however. No pericholecystic fluid or significant wall thickening is seen. Sonographic Felix sign is negative. The spleen is 12.1 x 5.7 x 5 CM, at the upper limits of normal. The right kidney is largely obscured. The left kidney is 11.3 CM in length. No hydronephrosis or focal lesion. No ascites or fluid collection is noted. The abdominal aorta and the IVC are largely obscured. IMPRESSION: The liver is coarse with no discrete mass. The portal vein is diminished in caliber and demonstrate hepatofugal flow suggestive of portal hypertension. The spleen is at the upper limits of normal in size. Dictated by: Dictated on workstation # [id number]
[2016-11-18 14:41] LABS: ANION GAP 6 MMOL/L (5-14); BLOOD UREA NITROGEN 20 MG/DL (7-18); BUN/CREATININE RATIO 14; CALCIUM 7.7 MG/DL (8.5-10.1); CARBON DIOXIDE 20 MMOL/L (21-32); CHLORIDE 87 MMOL/L (98-107); CREATININE SERUM 1.42 MG/DL (0.60-1.30); GFR ESTIMATED > 60; GLUCOSE 101 MG/DL (70-105); POTASSIUM 3.9 MMOL/L (3.6-5.0)
[2016-11-18 14:51] LABS: SODIUM 113 MMOL/L (135-145)
[2016-11-19] MEDS ORDERED: LEVOTHYROXINE 25 MCG (LEVOTHROID) TAB PO SCH (06:30)
[2016-11-19] MEDS ORDERED: PANTOPRAZOLE 40 MG (PROTONIX) TAB PO SCH (07:00)
[2016-11-19] MEDS ORDERED: NON-FORMULARY MEDICATION 1 EA EA (Omeprazole 40 MG) PO SCH (09:00)
[2016-11-20 15:29] LABS: HEPATITIS C LOG ML 4.29 Log/mL (<=1.07)
== END 2016-11-18 15:10 | disposition short-term general hospital (02) | DRG 432 ==
LOC: EDUNIT# 20:43 → ER 20:44 → ICU 22:01
PROVIDERS: ADMIT Family Medicine; ATTEND Family Medicine
DX: D63.8 Anemia in other chronic diseases classified elsewhere; I10 Essential (primary) hypertension; K70.40 Alcoholic hepatic failure without coma; D69.6 Thrombocytopenia, unspecified; K70.30 Alcoholic cirrhosis of liver without ascites; D72.829 Elevated white blood cell count, unspecified; K76.6 Portal hypertension; F17.210 Nicotine dependence, cigarettes, uncomplicated; B19.20 Unspecified viral hepatitis C without hepatic coma; K21.9 Gastro-esophageal reflux disease without esophagitis; E03.9 Hypothyroidism, unspecified; K76.7 Hepatorenal syndrome; E87.1 Hypo-osmolality and hyponatremia; F10.20 Alcohol dependence, uncomplicated; N39.0 Urinary tract infection, site not specified
CPT/HCPCS: 36415; 70450; 71010; 76700; 80048; 80053; 80076; 80306; 80320; 81000; 82140; 82150; 82800; 82962; 83605; 83690; 83735; 84100; 84443; 84484; 85025; 85610; 85730; 87077; 87081; 87088; 87186; 87522; 93005; 93041; 96374

== ENCOUNTER 2016-11-27 18:45 | Emergency (ER) | payer OTHER ==
[~2016-11-27] VITALS: Ht 193 cm; Wt 112.0 kg
[2016-11-27 18:57] LABS: BASOPHILS # (AUTO) 0.1 10^3/uL (0.0-0.1); BASOPHILS % (AUTO) 1 % (0-10); EOSINOPHILS # (AUTO) 0.1 10^3/uL (0.0-0.3); EOSINOPHILS % (AUTO) 1 % (0-10); LYMPHOCYTES # (AUTO) 1.2 X 10^3 (1.0-4.0); LYMPHOCYTES % (AUTO) 10 % (12-44); MEAN CORPUSCULAR HEMOGLOBIN 34 PG (25-34); MEAN CORPUSCULAR HGB CONC 36 G/DL (32-36); MEAN CORPUSCULAR VOLUME 96 FL (80-99); MEAN PLATELET VOLUME 10.7 FL (7.4-10.4); MONOCYTES # (AUTO) 1.4 X 10^3 (0.0-1.0); MONOCYTES % (AUTO) 11 % (0-12); NEUTROPHILS # (AUTO) 9.5 X 10^3 (1.8-7.8); NEUTROPHILS % (AUTO) 77 % (42-75); PLATELET COUNT 98 10^3/uL (130-400); RED BLOOD COUNT 2.79 10^6/uL (4.35-5.85); RED CELL DISTRIBUTION WIDTH 18.7 % (10.0-14.5); WHITE BLOOD COUNT 12.3 10^3/uL (4.3-11.0)
[2016-11-27 19:12] LABS: INR 2.8 (0.8-1.4); PROTHROMBIN TIME PATIENT 29.3 SEC (12.2-14.7)
[2016-11-27 19:17] LABS: ALANINE AMINOTRANSFERASE 79 U/L (0-55); ALBUMIN 2.1 GM/DL (3.2-4.5); ALCOHOL < 10 MG/DL (<10); AMMONIA 41 UMOL/L (11-32); ANION GAP 9 MMOL/L (5-14); ASPARTATE AMINO TRANSFERASE 261 U/L (5-34); BILIRUBIN,TOTAL 20.6 MG/DL (0.1-1.0); BLOOD UREA NITROGEN 30 MG/DL (7-18); BUN/CREATININE RATIO 11; CALCIUM 7.9 MG/DL (8.5-10.1); CARBON DIOXIDE 17 MMOL/L (21-32); CHLORIDE 105 MMOL/L (98-107); GFR ESTIMATED 29; GLUCOSE 63 MG/DL (70-105); POTASSIUM 4.8 MMOL/L (3.6-5.0); SODIUM 131 MMOL/L (135-145)
[2016-11-27 19:37] LABS: THYROID STIMULATING HORMONE 1.47 UIU/ML (0.35-4.94)
[2016-11-27] MEDS ORDERED: NS IV 1000 ML 1,000 ML IV ONE (19:45)
--- NOTE | 2016-11-27 19:46 | ED Neurological Problem ---
General Chief Complaint: Altered Mental Status Stated Complaint: DIZZY/LETHARGIC Nursing Triage Note: PT TO ED 6 PER EMS FOR C/O INCREASED DIZZINESS, FEW SLURRED WORDS, UNKNOWN LAST KNOWN WELL TIME. PT RECENTLY DISCHARGED FROM FOR END STAGE LIVER FAILURE. Nursing Sepsis Screen: No Definite Risk Source: patient, EMS Exam Limitations: no limitations Allergies and Home Medications Allergies Coded Allergies: No Known Drug Allergies (Unverified , 03/18/13) Home Medications Levothyroxine Sodium 25 Mcg Tablet, 25 MCG PO DAILY, (Reported) Meloxicam 7.5 Mg Tablet, 7.5 MG PO DAILY, (Reported) Omeprazole 40 Mg Capsule.dr, 40 MG PO DAILY, (Reported) Propranolol HCl 120 Mg Cap.sa.24h, 120 MG PO BID, (Reported) Sildenafil Citrate 50 Mg Tablet, 50 MG PO DAILY PRN for ERECTILE DYSFUNCTION, ( Reported) Torsemide 10 Mg Tablet, 10 MG PO DAILY, (Reported) Past Vvjtrgp-Qottfu-Ktaebh Hx Patient Social History Alcohol Use: Occasionally Uses Number of Drinks Today: AA Alcohol Beverage of Choice: Beer Recreational Drug Use: No Smoking Status: Current Everyday Smoker Type Used: Cigarettes Recent Foreign Travel: No Contact w/Someone Who Travel: No Recent Infectious Disease Expo: No Recent Hopitalizations: Yes (RECENTLY DISCHARGED FROM /END STAGE LIVER DZ) Physical Abuse: No Sexual Abuse: No Mistreated: No Fear: No Immunizations Up To Date Tetanus Booster (TDap): Unknown PED Vaccines UTD: No Seasonal Allergies Seasonal Allergies: Yes Surgeries History of Surgeries: No Respiratory History of Respiratory Disorde: No Currently Using CPAP: No Currently Using BIPAP: No Cardiovascular History of Cardiac Disorders: Yes Cardiac Disorders: Chronic Edema/Swelling, Hypertension Neurological History of Neurological Disord: No Reproductive System Hx Reproductive Disorders: Yes (E.D.--TAKES VIAGRA) Sexually Transmitted Disease: No Genitourinary History of Genitourinary Disor: Yes (kidney disease; INCONTINENCE) Genitourinary Disorders: Prostate Problems, UTI-Chronic Gastrointestinal History of Gastrointestinal Di: Yes (HEPATITIS C--NO TREATMENT; HEPATIC ENCEPHALOPATHY / END STAGE LIVER FAILURE) Gastrointestinal Disorders: Gastroesophageal Reflux, Liver Disease/Jaundice, Hepatitis, Cirrhosis, Irritable Bowel Musculoskeletal History of Musculoskeletal Dis: No Endocrine History of Endocrine Disorders: Yes Endocrine Disorders: Hypothyroidsim HEENT History of HEENT Disorders: Yes (POOR DENTITION) Cancer History of Cancer: No Psychosocial History of Psychiatric Problem: Yes Behavioral Health Disorders: Anxiety, Depression Suicide Risk Score: 0 Integumentary History of Skin or Integumenta: No Blood Transfusions History of Blood Disorders: Yes (ANEMIA AND THROMBOCYTOPENIA-FELT TO BE RELATED TO ALCOHOL ABUSE) Adverse Reaction to a Blood Tr: No Family Medical History Significant Family History: Hypertension Family Medial History: Family history: Cardiovascular disease 03 FATHER Family history: Hypertension 03 MOTHER Physical Exam Vital Signs Vital Sign - Last 12Hours 11/27/16 18:46 Temp 97.2 Pulse 69 Resp 18 B/P (MAP) 100/58 Pulse Ox 100 O2 Delivery Room Air Capillary Refill : Less Than 3 Seconds Progress/Results/Core Measures Results/Orders Lab Results Laboratory Tests Test 11/27/16 18:48 11/27/16 23:25 Range/Units White Blood Count 12.3 H 4.3-11.0 10^3/uL Red Blood Count 2.79 L 4.35-5.85 10^6/uL Hemoglobin 9.5 L 13.3-17.7 G/DL Hematocrit 27 L 40-54 % Mean Corpuscular Volume 96 80-99 FL Mean Corpuscular Hemoglobin 34 25-34 PG Mean Corpuscular Hemoglobin Concent 36 32-36 G/DL Red Cell Distribution Width 18.7 H 10.0-14.5 % Platelet Count 98 L 130-400 10^3/uL Mean Platelet Volume 10.7 H 7.4-10.4 FL Neutrophils (%) (Auto) 77 H 42-75 % Lymphocytes (%) (Auto) 10 L 12-44 % Monocytes (%) (Auto) 11 0-12 % Eosinophils (%) (Auto) 1 0-10 % Basophils (%) (Auto) 1 0-10 % Neutrophils # (Auto) 9.5 H 1.8-7.8 X 10^3 Lymphocytes # (Auto) 1.2 1.0-4.0 X 10^3 Monocytes # (Auto) 1.4 H 0.0-1.0 X 10^3 Eosinophils # (Auto) 0.1 0.0-0.3 10^3/uL Basophils # (Auto) 0.1 0.0-0.1 10^3/uL Prothrombin Time 29.3 H 12.2-14.7 SEC INR Comment 2.8 H 0.8-1.4 Activated Partial Thromboplast Time 51 H 24-35 SEC Sodium Level 131 L 135-145 MMOL/L Potassium Level 4.8 3.6-5.0 MMOL/L Chloride Level 105 98-107 MMOL/L Carbon Dioxide Level 17 L 21-32 MMOL/L Anion Gap 9 5-14 MMOL/L Blood Urea Nitrogen 30 H 7-18 MG/DL Creatinine 2.80 H 0.60-1.30 MG/DL Estimat Glomerular Filtration Rate 29 BUN/Creatinine Ratio 11 Glucose Level 63 L 70-105 MG/DL Calcium Level 7.9 L 8.5-10.1 MG/DL Total Bilirubin 20.6 H 0.1-1.0 MG/DL Aspartate Amino Transf (AST/SGOT) 261 H 5-34 U/L Alanine Aminotransferase (ALT/SGPT) 79 H 0-55 U/L Alkaline Phosphatase 153 H 40-136 U/L Ammonia 41 H 11-32 UMOL/L Total Protein 6.0 L 6.4-8.2 GM/DL Albumin 2.1 L 3.2-4.5 GM/DL Thyroid Stimulating Hormone (TSH) 1.47 0.35-4.94 UIU/ML Free Thyroxine 0.60 L 0.70-1.48 NG/DL Serum Alcohol < 10 <10 MG/DL Urine Color BROWN H Urine Clarity CLOUDY H Urine pH 6.5 5-9 Urine Specific Stevens 1.020 1.016-1.022 Urine Protein 2+ H NEGATIVE Urine Glucose (UA) NEGATIVE NEGATIVE Urine Ketones 1+ H NEGATIVE Urine Nitrite NEGATIVE NEGATIVE Urine Bilirubin 3+ H NEGATIVE Urine Urobilinogen 8 H NORMAL MG/DL Urine Leukocyte Esterase 1+ H NEGATIVE Urine RBC (Auto) 2+ H NEGATIVE Urine RBC RARE /HPF Urine WBC 5-10 H /HPF Urine Squamous Epithelial Cells 5-10 /HPF Urine Crystals NONE /LPF Urine Bacteria LARGE H /HPF Urine Casts PRESENT /LPF Urine Hyaline Casts RARE /LPF Urine Mucus NEGATIVE /LPF Urine Culture Indicated YES Urine Opiates Screen NEGATIVE NEGATIVE Urine Oxycodone Screen NEGATIVE NEGATIVE Urine Methadone Screen NEGATIVE NEGATIVE Urine Propoxyphene Screen NEGATIVE NEGATIVE Urine Barbiturates Screen NEGATIVE NEGATIVE Ur Tricyclic Antidepressants Screen NEGATIVE NEGATIVE Urine Phencyclidine Screen NEGATIVE NEGATIVE Urine Amphetamines Screen NEGATIVE NEGATIVE Urine Methamphetamines Screen NEGATIVE NEGATIVE Urine Benzodiazepines Screen NEGATIVE NEGATIVE Urine Cocaine Screen NEGATIVE NEGATIVE Urine Cannabinoids Screen NEGATIVE NEGATIVE Orders Orders - VENTURA HANSEN Ns Iv 1000 Ml (Sodium Chloride 0.9%) (11/27/16 19:45) Fentanyl Injection (Sublimaze Injection (11/27/16 22:30) Medications Given in ED Current Medications Medications Dose Ordered Sig/Otilia Route Start Time Stop Time Status Last Admin Dose Admin Sodium Chloride 1,000 ml @ 0 mls/hr Q0M ONCE IV 11/27/16 19:45 11/27/16 19:46 DC 11/27/16 20:26 1,000 MLS/HR Vital Signs/I&O Vital Sign - Last 12Hours 11/27/16 18:46 Temp 97.2 Pulse 69 Resp 18 B/P (MAP) 100/58 Pulse Ox 100 O2 Delivery Room Air Blood Pressure Mean: 72 Departure Impression Impression: Primary Impression: Hepatic encephalopathy Additional Impressions: Volume depletion End stage liver disease Acute on chronic kidney failure Urinary tract infection Disposition: 01 HOME, SELF-CARE Condition: Improved Departure-Patient Inst. Decision time for Depature: 00:12 Referrals: [facility] (PCP) Primary Care Physician KIT BOSTON (Family) Primary Care Physician Patient Instructions: Cirrhosis, Hepatic Encephalopathy (DC), Urinary Tract Infection, Adult (DC) Add. Discharge Instructions: All discharge instructions reviewed with patient and/or family. Voiced understanding. Medications as instructed. Continue usual home medications. Continue instructions as per [facility]. Follow-up with your family practitioner Wednesday for recheck, call first thing Wednesday morning for appointment time. Repeat labs on Wednesday. Return to the emergency room for worsened pain, fever, vomiting, rectal bleeding, black stools, dizziness, slurred speech, facial drooping, weakness, seizure, shortness of breath, or any other concerns. Scripts Lactulose (Lactulose) 20 Gm/30 Ml Solution 20 GM PO QID, #1 EA 0 Refills Prov: VENTURA HANSEN 11/28/16 Cephalexin (Cephalexin) 500 Mg Capsule 500 MG PO Q12H, #14 CAP 0 Refills Prov: VENTURA HANSEN 11/28/16 VENTURA HANSEN Nov 27, 2016 19:46
[2016-11-27] MEDS ORDERED: fentaNYL INJECTION 100 MCG/2 ML AMP IVP STA (22:30)
[2016-11-27 23:33] LABS: KETONES,URINE 1+ (NEGATIVE); LEUKOCYTE ESTERASE ,URINE 1+ (NEGATIVE); NITRITE,URINE NEGATIVE (NEGATIVE); PH,URINE 6.5 (5-9); PROTEIN,URINE 2+ (NEGATIVE); UROBILINOGEN,URINE 8 MG/DL (NORMAL)
[2016-11-27 23:42] LABS: BILIRUBIN,URINE 3+ (NEGATIVE)
[2016-11-27 23:45] LABS: HYALINE CASTS, URINE RARE /LPF
[2016-11-28] MEDS ORDERED: LACT20SO2 PO (00:16)
[2016-11-28] MEDS ORDERED: CEPH500C PO (00:16)
[2016-11-28] MEDS ORDERED: LACTULOSE SYRUP 10GM/15ML (ENULOSE) 30ML UDC PO ONE (00:30)
[2016-11-28] MEDS ORDERED: CEPHALEXIN 250 MG (KEFLEX) CAP PO ONE (00:30)
[2016-11-28 00:37] VITALS: BP 92/58
== END 2016-11-28 00:37 | disposition home or self-care (01) ==
LOC: EDUNIT# 18:45 → ER 18:46
DX: K72.90 Hepatic failure, unspecified without coma (principal); E86.9 Volume depletion, unspecified; I12.9 Hypertensive chronic kidney disease with stage 1 through stage 4 chronic kidney disease, or unspecified chronic kidney disease; N18.9 Chronic kidney disease, unspecified; N17.9 Acute kidney failure, unspecified; N39.0 Urinary tract infection, site not specified; K21.9 Gastro-esophageal reflux disease without esophagitis; E03.9 Hypothyroidism, unspecified; F41.9 Anxiety disorder, unspecified; F32.9 Major depressive disorder, single episode, unspecified; D64.9 Anemia, unspecified; B19.20 Unspecified viral hepatitis C without hepatic coma; F17.210 Nicotine dependence, cigarettes, uncomplicated; Z87.19 Personal history of other diseases of the digestive system; Z87.440 Personal history of urinary (tract) infections; Z82.49 Family history of ischemic heart disease and other diseases of the circulatory system
CPT/HCPCS: 36415; 80053; 80306; 80320; 81000; 82140; 84439; 84443; 85025; 85610; 85730; 87088; 96361; 96374

== ENCOUNTER 2016-11-28 23:08 | Emergency (ER) | payer OTHER ==
[~2016-11-28] VITALS: Ht 193 cm; Wt 112.2 kg
[~2016-11-28 23:08] MED LIST changes: +CEPH500C PO
[2016-11-28] MEDS ORDERED: CATHETER FLUSH 10 ML SYR IV ONE (23:10)
[2016-11-28] MEDS ORDERED: EPINEPHrine INJECTION 1 MG/ML AMP IJ ONE (23:10)
[2016-11-28 23:21] VITALS: BP 0/0
--- NOTE | 2016-11-28 23:35 | ED CPR ---
HPI-CPR General Chief Complaint: Code Blue Stated Complaint: CODE Source of Information: EMS Exam Limitations: No Limitations History of Present Illness Time Seen by Provider: 23:09 Initial Comments This 56-year-old gentleman known to this staff has severe liver failure and renal failure. He presents to the emergency room in asystole with active CPR in progress. EMS was called to the home earlier this evening because of patient 's overall severe illness. Patient declined transfer to the hospital at that time. EMS was called back out to the home. They report patient was still hesitant to come to the hospital. As they were carrying him out to the ambulance he became unresponsive and apneic. He was found to be in asystole. CPR was initiated. He received one dose of epinephrine by EMS prior to ER arrival. Patient was also seen in this ER last night and admission was arranged. However, patient changed his mind and refused admission. Patient was advised previously by other providers to consider hospice due to his severe liver failure. EMS established an IO in the left tibia area Allergies and Home Medications Allergies Coded Allergies: No Known Drug Allergies (Unverified , 03/18/13) Home Medications Cephalexin 500 Mg Capsule, 500 MG PO Q12H, #14 Ref 0 Prescribed by: VENTURA HANSEN on 11/28/16 0016 Lactulose 20 Gm/30 Ml Solution, 20 GM PO QID, #1 Ref 0 Prescribed by: VENTURA HANSEN on 11/28/16 0016 Levothyroxine Sodium 25 Mcg Tablet, 25 MCG PO DAILY, (Reported) Meloxicam 7.5 Mg Tablet, 7.5 MG PO DAILY, (Reported) Omeprazole 40 Mg Capsule.dr, 40 MG PO DAILY, (Reported) Propranolol HCl 120 Mg Cap.sa.24h, 120 MG PO BID, (Reported) Sildenafil Citrate 50 Mg Tablet, 50 MG PO DAILY PRN for ERECTILE DYSFUNCTION, ( Reported) Torsemide 10 Mg Tablet, 10 MG PO DAILY, (Reported) Review of Systems Constitutional: see HPI EENTM: No Symptoms Reported Respiratory: See HPI Cardiovascular: See HPI Gastrointestinal: See HPI Genitourinary: See HPI Musculoskeletal: no symptoms reported Skin: change in color Psychiatric/Neurological: See HPI Endocrine: No Symptoms Reported Past Wfadazx-Lwteqm-Kesuzx Hx Patient Social History Alcohol Beverage of Choice: Beer Type Used: Cigarettes Recent Hopitalizations: Yes (RECENTLY DISCHARGED FROM /END STAGE LIVER DZ) Immunizations Up To Date Tetanus Booster (TDap): Unknown PED Vaccines UTD: No Seasonal Allergies Seasonal Allergies: Yes Surgeries History of Surgeries: No Respiratory History of Respiratory Disorde: No Currently Using CPAP: No Currently Using BIPAP: No Cardiovascular History of Cardiac Disorders: Yes Cardiac Disorders: Chronic Edema/Swelling, Hypertension Neurological History of Neurological Disord: No Reproductive System Hx Reproductive Disorders: Yes (E.D.--TAKES VIAGRA) Sexually Transmitted Disease: No Genitourinary History of Genitourinary Disor: Yes (kidney disease; INCONTINENCE) Genitourinary Disorders: Prostate Problems, UTI-Chronic Gastrointestinal History of Gastrointestinal Di: Yes (HEPATITIS C--NO TREATMENT; HEPATIC ENCEPHALOPATHY / END STAGE LIVER FAILURE) Gastrointestinal Disorders: Gastroesophageal Reflux, Liver Disease/Jaundice, Hepatitis, Cirrhosis, Irritable Bowel Musculoskeletal History of Musculoskeletal Dis: No Endocrine History of Endocrine Disorders: Yes Endocrine Disorders: Hypothyroidsim HEENT History of HEENT Disorders: Yes (POOR DENTITION) Cancer History of Cancer: No Psychosocial History of Psychiatric Problem: Yes Behavioral Health Disorders: Anxiety, Depression Integumentary History of Skin or Integumenta: No Blood Transfusions History of Blood Disorders: Yes (ANEMIA AND THROMBOCYTOPENIA-FELT TO BE RELATED TO ALCOHOL ABUSE) Adverse Reaction to a Blood Tr: No Family Medical History Significant Family History: Hypertension Family Medial History: Family history: Cardiovascular disease 03 FATHER Family history: Hypertension 03 MOTHER Physical Exam Vital Signs Vital Sign - Last 12Hours Capillary Refill : General Appearance: Other (unresponsive) HEENT: Normal ENT Inspection, Scleral Icterus (L), Scleral Icterus (R), Other ( pupils unreactive) Respiratory: Other (apneic) Cardiovascular: Other (asystole) Gastrointestinal: Soft, No Distended Neurologic/Psychiatric: Other (unresponsive) Skin: Jaundice Progress/Results/Core Measures Results/Orders Vital Signs/I&O Vital Sign - Last 12Hours 11/28/16 23:09 B/P (MAP) Critical Care Note Critical Care Start Time: 23:09 Stop Time: 23:21 Total Time (minutes) 12 Date of : Nov 28, 2016 Time of : 23:21 Progress Patient arrived with CPR in progress. One round of epinephrine had already been administered. Patient remained in asystole throughout the resuscitation effort. Patient had bilateral breath sounds with bag ventilation through a Combitube. An additional 3 rounds of epinephrine and cycles of CPR were performed. There was no pulse or cardiac rhythm obtained at any point during the resuscitation effort. Family was brought to the room for the last cycle of CPR and agreed with discontinuing resuscitation. Patient had extremely poor prognosis due to his end-stage liver disease and acute on chronic renal failure. Further resuscitation efforts were felt to be futile. Departure Impression Impression: Primary Impression: Cardiac arrest Additional Impressions: End stage liver disease Acute on chronic renal failure Qualified Codes: N17.9 - Acute kidney failure, unspecified; N18.9 - Chronic kidney disease, unspecified Disposition: 20 Condition: Departure-Patient Inst. Referrals: [facility] (PCP) Primary Care Physician KIT BOSTON (Family) Primary Care Physician AUREA LYLES MD Nov 28, 2016 23:35
== END 2016-11-28 23:21 | disposition expired ==
LOC: EDUNIT# 23:08 → ER 23:09
DX: I46.9 Cardiac arrest, cause unspecified (principal); N17.9 Acute kidney failure, unspecified; K72.90 Hepatic failure, unspecified without coma; I12.0 Hypertensive chronic kidney disease with stage 5 chronic kidney disease or end stage renal disease; N18.6 End stage renal disease; F41.9 Anxiety disorder, unspecified; F32.9 Major depressive disorder, single episode, unspecified; E03.9 Hypothyroidism, unspecified; K21.9 Gastro-esophageal reflux disease without esophagitis; Z87.19 Personal history of other diseases of the digestive system
CPT/HCPCS: 31500; 93041; 96360